=== PATIENT | male | born 1955 | race Caucasian/White ===

== ENCOUNTER 2017-01-26 09:38 | Emergency (ER) | payer OTHER ==
[~2017-01-26] VITALS: Ht 188 cm; Wt 99.8 kg
[2017-01-26 09:39] VITALS: TEMP 36.4; Ht 188 cm; Wt 99.8 kg
[2017-01-26] MEDS ORDERED: ADENOSINE IV SOLN 3 MG/ML 2 ML VIAL ONE ×3 (10:02→10:12)
[2017-01-26] MEDS ORDERED: FENTANYL CITRATE INJ 50 MCG/1 ML 2 ML VIAL ONE (10:26)
[2017-01-26] MEDS ORDERED: ETOMIDATE 2 MG/ML 20 ML VIAL IV ONE (10:26)
--- NOTE | 2017-01-26 11:01 | EMERGENCY ROOM VISIT NOTE ---
History Report prepared by Magui: Tammi Harp Under the Supervision of: Dr. Kishan Carmona M.D. 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 The patient states that his symptoms began last night after eating dinner. He started experiencing a "thumping" in his chest. He had difficulty sleeping due to his symptoms. Around 2am he became very nauseated and diaphoretic. He vomited a large amount and then started to feel better. He states that he was able to sleep for about 20 minutes afterwards. The patient's other symptoms have resolved and he is currently just experiencing tachycardia and palpitations. He rates his current pain as a 3/10 in severity. The patient is from [place] and is in [place] to visit his family. He states that prior to coming here he had been under a lot of stress with his job. He was visiting his family to relax. He has been feeling well, but reports that over the past couple of days he has been having vertigo and increased dizziness with changing positions. The patient denies fevers, chills, shortness of breath, diarrhea, constipation, and urinary symptoms. He has been eating and drinking normally. The patient has a history of tachycardia three years ago. He states that his doctors tried to convert him to a NSR with medications, but were unsuccessful and the patient was cardioverted. He states that he has had no problems with tachycardia since that time. His current symptoms feel similar to his previous episode of tachycardia. The patient had an NM in 1998 and a stent placed at that time. He states that his vice president of manufacturing has talked to him about getting a pacemaker placed and that is his next step. The patient is not current on any blood thinners or Lasix. Source of History: patient Onset: 7pm last night Position: chest Symptom Intensity: 3/10 Quality: other ("thumping") Timing: constant Associated Symptoms: + diaphoresis, + nausea, + vomiting, No fevers, No chills, No SOB, No diarrhea, No urinary symptoms Note: Pt has been experiencing vertigo and dizziness over the past couple of days. Review of Systems See HPI for pertinent positives and negatives. A total of ten systems were reviewed and were otherwise negative. Past Medical & Surgical Medical Problems: (1) Hx of myocardial infarction Surgical Problems: (1) History of heart artery stent Family History Diabetes mellitus FH: cancer FH: heart disease Hypertension Social History Smoking Status: Current Every Day Smoker Alcohol Use: none Occupation Status: employed Current/Historical Medications Scheduled Aspirin (Aspirin Ec), 81 MG PO DAILY Atorvastatin (Lipitor), 40 MG PO DAILY Carvedilol (Coreg), 6.25 MG PO BID Enalapril Maleate (Vasotec), 2.5 MG PO QPM Allergies Coded Allergies: No Known Allergies (Unverified , 01/26/17) Physical Exam Vital Signs Date Time Temp Pulse Resp B/P (MAP) Pulse Ox O2 Delivery O2 Flow Rate FiO2 01/26/17 14:05 72 16 99/68 Room Air 01/26/17 13:50 69 01/26/17 13:19 76 18 102/73 98 Room Air 01/26/17 12:44 75 16 100/74 97 Room Air 01/26/17 11:56 96/71 96 Room Air 01/26/17 11:53 79 0 95 01/26/17 11:51 88/67 01/26/17 11:48 74 0 96 01/26/17 11:46 87/63 01/26/17 11:43 74 0 94 01/26/17 11:41 93/70 01/26/17 11:38 80 0 96 01/26/17 11:36 98/72 01/26/17 11:33 77 0 95 01/26/17 11:31 94/68 01/26/17 11:28 76 0 95 01/26/17 11:26 100/75 01/26/17 11:23 73 0 95 01/26/17 11:21 93/66 01/26/17 11:18 76 0 97 01/26/17 11:16 102/72 01/26/17 11:13 81 18 97/72 98 Room Air 01/26/17 11:13 81 0 99 01/26/17 11:07 77 18 98 Nasal Cannula 2.0 01/26/17 11:06 97/73 01/26/17 11:02 76 16 96 Nasal Cannula 2.0 01/26/17 11:01 101/75 01/26/17 10:57 80 16 01/26/17 10:56 102/79 01/26/17 10:52 73 18 98 Nasal Cannula 2.0 01/26/17 10:51 114/80 01/26/17 10:49 68 01/26/17 10:47 70 14 108/83 94 Nasal Cannula 2.0 01/26/17 10:46 93/69 01/26/17 10:42 165 14 99 Nasal Cannula 2.0 01/26/17 10:41 92/76 01/26/17 10:37 166 13 100 Nasal Cannula 2.0 01/26/17 10:36 90/75 01/26/17 10:32 18 01/26/17 10:32 169 19 97 Nasal Cannula 2.0 01/26/17 10:00 167 14 85/70 98 Room Air 01/26/17 09:49 169 01/26/17 09:46 97 Room Air 01/26/17 09:39 36.4 140 18 97 Room Air Physical Exam GENERAL: Awake, alert, fatigued-appearing, in no distress HENT: Normocephalic, atraumatic. Mucous membranes are dry. EYES: Normal conjunctiva. Sclera non-icteric. NECK: Supple. FROM. No JVD. RESPIRATORY: Clear to auscultation. CARDIAC: Tachycardic, normal rhythm. Extremities warm and well perfused. Pulses equal. ABDOMEN: Soft, non-distended. No tenderness to palpation. No rebound or guarding. No masses. RECTAL: Deferred. MUSCULOSKELETAL: Chest examination reveals no tenderness. The back is symmetrical on inspection without obvious abnormality. There is no CVA tenderness to palpation. No joint edema. LOWER EXTREMITIES: Calves are equal size bilaterally and non-tender. No edema. No discoloration. NEURO: Normal sensorium. No sensory or motor deficits noted. SKIN: No rash or jaundice noted. Medical Decision & Procedures ER Provider Diagnostic Interpretation: I performed a bedside ultrasound of the heart which revealed a tachycardic rhythm, LV and RV function grossly intact, no gross wall motion abnormalities, no pericardial effusion. A repeat ECG reveals a normal sinus rhythm at 70, normal intervals, no ischemia. Laboratory Results 01/26/17 09:51 Red Blood Count 5.14, Mean Corpuscular Volume 92.0, Mean Corpuscular Hemoglobin 31.9, Mean Corpuscular Hemoglobin Concent 34.7, Mean Platelet Volume 10.5, Neutrophils (%) (Auto) 64.0, Lymphocytes (%) (Auto) 26.1, Monocytes (%) (Auto) 8.4, Eosinophils (%) (Auto) 0.6, Basophils (%) (Auto) 0.5, Neutrophils # (Auto) 10.85, Lymphocytes # (Auto) 4.43, Monocytes # (Auto) 1.42, Eosinophils # (Auto) 0.11, Basophils # (Auto) 0.08 01/26/17 09:51 Test 01/26/17 09:51 White Blood Count 16.96 K/uL (4.8-10.8) Red Blood Count 5.14 M/uL (4.7-6.1) Hemoglobin 16.4 g/dL (14.0-18.0) Hematocrit 47.3 % (42-52) Mean Corpuscular Volume 92.0 fL (80-100) Mean Corpuscular Hemoglobin 31.9 pg (25-34) Mean Corpuscular Hemoglobin Concent 34.7 g/dl (32-36) Platelet Count 279 K/uL (130-400) Mean Platelet Volume 10.5 fL (7.4-10.4) Neutrophils (%) (Auto) 64.0 % Lymphocytes (%) (Auto) 26.1 % Monocytes (%) (Auto) 8.4 % Eosinophils (%) (Auto) 0.6 % Basophils (%) (Auto) 0.5 % Neutrophils # (Auto) 10.85 K/uL (1.4-6.5) Lymphocytes # (Auto) 4.43 K/uL (1.2-3.4) Monocytes # (Auto) 1.42 K/uL (0.11-0.59) Eosinophils # (Auto) 0.11 K/uL (0-0.5) Basophils # (Auto) 0.08 K/uL (0-0.2) RDW Standard Deviation 44.9 fL (36.4-46.3) RDW Coefficient of Variation 13.3 % (11.5-14.5) Immature Granulocyte % (Auto) 0.4 % Immature Granulocyte # (Auto) 0.07 K/uL (0.00-0.02) Anion Gap 7.0 mmol/L (3-11) Est Creatinine Clear Calc Drug Dose 65.3 ml/min Estimated GFR () 57.4 Estimated GFR (Non- 49.5 BUN/Creatinine Ratio 11.8 (10-20) Calcium Level 9.3 mg/dl (8.5-10.1) Magnesium Level 2.1 mg/dl (1.8-2.4) Thyroid Stimulating Hormone (TSH) 1.650 uIu/ml (0.300-4.500) Laboratory results reviewed by me Medications Administered Medications (Trade) Dose Ordered Sig/[place] Route Start Time Stop Time Status Last Admin Dose Admin Adenosine (Adenosine IV) 9 mg STK-MED ONCE .ROUTE 01/26/17 10:02 01/26/17 10:03 DC 01/26/17 10:02 9 MG Adenosine (Adenosine IV) 3 mg STK-MED ONCE .ROUTE 01/26/17 10:11 01/26/17 10:12 DC 01/26/17 10:11 9 MG Adenosine (Adenosine IV) 3 mg STK-MED ONCE .ROUTE 01/26/17 10:12 01/26/17 10:13 DC 01/26/17 10:12 3 MG Etomidate (Amidate Inj) 40 mg STK-MED ONCE IV 01/26/17 10:26 01/26/17 10:27 DC 01/26/17 10:26 40 MG Fentanyl Citrate (Fentanyl Inj) 100 mcg STK-MED ONCE .ROUTE 01/26/17 10:26 01/26/17 10:27 DC 01/26/17 10:26 50 MCG Procedure Indication: wide complex tachycardia unresponsive to medications and hypotensive Written consent was obtained after the risks and benefits were explained, including but not limited to pain, thermal burn, allergic reaction, aspiration, airway obstruction, laryngospasm, infection, hypotension, and cardiorespiratory arrest. At this time, the risks of the procedure are less than the risks of NOT performing the procedure. A time out was taken and the correct patient and procedure identified. The patient was on 100% via NRB and end tidal CO2 monitoring prior to the procedure. Suction, airway equipment, medications, respiratory equipment, ACLS cart, and appropriate personnel were prepared prior to the initiation of the procedure. Sedation was achieved utilizing 10 mg of Etomidate and 50 mcg of Fentanyl. The biphasic defibrillator was set to 200 joules of energy and synched. After confirmation of sedation and "all clear" safety check the synchronized shock was delivered. This resulted in successful conversion of the dysrhythmia back into sinus rhythm. See nursing notes for dosages and times. There were no complications and the patient recovered uneventfully from the procedure. ECG Indication: tachycardia Rate (beats per minute): 169 Rhythm: other (wide tachycardia) Findings: no acute ischemic change, other (Non-specific intraventricular block , limited by the rate) Comparison ECG Date: no prior available ED Course 0940: The patient was evaluated in room A4B. A complete history and physical exam was performed. I also performed a bedside ultrasound of the heart which revealed a tachycardic rhythm, LV and RV function grossly intact, no wall motion abnormalities, no pericardial effusion. 1002: Adenosine 6 mg IV 1011: Adenosine 12 mg IV 1012: Adenosine 12 mg IV 1024: The patient's HR is still in the 160s after receiving Adenosine. At this time I discussed the risks and benefits associated with cardioversion with the patient. I answered all of his questions and he is in agreement with the treatment plan. 1025: We prepared to perform a cardioversion with sedation. Please see Dr. Hernández's sedation note and my procedure note as stated above for further details. 1026: Fentanyl 50 mcg, Etomidate 10 mg IV 1044: At this time the patient was shocked. 1051: The patient is waking up and talking. 1232: I updated the patient and he is doing well. I discussed follow-up plans. The patient will be returning home to [place] on February 06 and he will arrange for follow-up with his PCP on February 07. 1333: I reassessed the patient at this time. He is feeling better and resting comfortably. He is still in a normal sinus rhythm. I discussed the results and treatment plan with the patient. I answered all pertaining questions that he had. He expressed understanding and verbalized agreement. The patient will be discharged home. Medical Decision I reviewed the patient's past medical history, medications, and the nursing notes as described above. Differential diagnoses includes SVT vs. a-fib with RVR, vtach, sinus tachycardia , dehydration, electrolyte abnormality, ACS. Patient presents to the ED with palpitations, n/v, sweating with similar episode 3 years ago requiring cardioversion per hpi. On arrival appears fatigued , mildly uncomfortable but otherwise in NAD. Reports palpitations are improved from earlier. Arrived tachycardic to 140-160s with SBP 90s, mentating well without dizziness. Denies chest pain rather feels intermittant palpitations. Clinically dry. IVF given. QRS complex on EKG mildly widened, not c/w vtach. Bedside echo with grossly intact RV/LV function. Adenosine attempted 6, 12, and 12 and was unsuccessfully. Considering clear onset of sx last night and hypotension cardioversion indicated. Patient consented and agreeable for the procedure. Cardioversion performed under sedation with etomidate and fentanyl and was successful, subsequently in NSR. Repeat EKG without acute ischemia. Inferior q waves present on prior EKG obtained from [facility] where patient gets his care. Patient observed in ED and continued to be asymptomatic. Considering lack of cp in the setting of undifferentiated wide complex tachycardia, troponin deferred. Moreover, considering complete resolution of sx after cardioversion, acs unlikely however cannot completely r/ o. This was discussed with patient and observation was offered however patient preferred discharge and will f/u with his vice president of manufacturing within the next week. Medication Reconcilliation Current Medication List: was personally reviewed by me Blood Pressure Screening Patient's blood pressure: Low blood pressure Impression Primary Impression: Wide-complex tachycardia Critical Care I have personally spent greater than 75 minutes of critical care time in the direct management of this patient. This includes bedside care, interpretation of diagnostic studies, and testing, discussion with consultants, patient, and family members, and other required patient management activities. This 75 minutes is in excess of all separately billable procedures. Scribe Attestation The scribe's documentation has been prepared under my direction and personally reviewed by me in its entirety. I confirm that the note above accurately reflects all work, treatment, procedures, and medical decision making performed by me. Departure Information Dispostion Home / Self-Care Referrals No Doctor, Assigned (PCP) Forms HOME CARE DOCUMENTATION FORM, IMPORTANT VISIT INFORMATION, WORK / SCHOOL INSTRUCTIONS Patient Instructions Cardioversion Electrical About, My [facility], Tachycardia Additional Instructions Please follow up with your vice president of manufacturing next week. You were successfully cardioverted for your fast heart rhythm after medications were unsuccessful. Return to the emergency department for worsening symptoms as described in the accompanying instructions.
[2017-01-26 11:20] LABS: BASO % 0.5 %; BASO ABS # 0.08 K/uL (0-0.2); COMPLETE YES; EOS % 0.6 %; HEMATOCRIT 47.3 % (42-52); IG% 0.4 %; LYMPH % 26.1 %; LYMPH ABS # 4.43 K/uL (1.2-3.4); MEAN CORPUSCULAR HEMOGLOBIN 31.9 pg (25-34); MEAN CORPUSCULAR HGB CONC 34.7 g/dl (32-36); MEAN PLATELET VOLUME 10.5 fL (7.4-10.4); MONO % 8.4 %; PLATELET COUNT 279 K/uL (130-400); RED BLOOD COUNT 5.14 M/uL (4.7-6.1); WHITE BLOOD COUNT 16.96 K/uL (4.8-10.8)
[2017-01-26 11:26] LABS: BUN/CREATININE RATIO 11.8 (10-20); CALCIUM 9.3 mg/dl (8.5-10.1); CREATININE 1.5 mg/dl (0.60-1.40); MAGNESIUM 2.1 mg/dl (1.8-2.4); POTASSIUM 4.5 mmol/L (3.5-5.1)
[2017-01-26] MEDS ORDERED: ASPI81TA28 PO (11:36)
[2017-01-26] MEDS ORDERED: CARV6.252 PO (11:36)
[2017-01-26] MEDS ORDERED: ATOR-24 PO (11:36)
[2017-01-26] MEDS ORDERED: ENAL1TAB29 PO (11:36)
[2017-01-26 11:37] LABS: THYROID STIMULATING HORMONE 1.65 uIu/ml (0.300-4.500)
[2017-01-26 13:19] VITALS: O2SAT 98
[2017-01-26 14:05] VITALS: BP 99/68; PULSE 72
--- NOTE | 2017-01-26 15:52 | EMERGENCY ROOM VISIT NOTE ---
Post-Moderate Sedation Plan General Date of Moderate Sedation Jan 26, 2017. Vital Signs: Vital Signs Past 12 Hours Date Time Temp Pulse Resp B/P (MAP) Pulse Ox O2 Delivery O2 Flow Rate FiO2 01/26/17 14:05 72 16 99/68 Room Air 01/26/17 13:50 69 01/26/17 13:19 76 18 102/73 98 Room Air 01/26/17 12:44 75 16 100/74 97 Room Air 01/26/17 11:56 96/71 96 Room Air 01/26/17 11:53 79 0 95 01/26/17 11:51 88/67 01/26/17 11:48 74 0 96 01/26/17 11:46 87/63 01/26/17 11:43 74 0 94 01/26/17 11:41 93/70 01/26/17 11:38 80 0 96 01/26/17 11:36 98/72 01/26/17 11:33 77 0 95 01/26/17 11:31 94/68 01/26/17 11:28 76 0 95 01/26/17 11:26 100/75 01/26/17 11:23 73 0 95 01/26/17 11:21 93/66 01/26/17 11:18 76 0 97 01/26/17 11:16 102/72 01/26/17 11:13 81 18 97/72 98 Room Air 01/26/17 11:13 81 0 99 01/26/17 11:07 77 18 98 Nasal Cannula 2.0 01/26/17 11:06 97/73 01/26/17 11:02 76 16 96 Nasal Cannula 2.0 01/26/17 11:01 101/75 01/26/17 10:57 80 16 01/26/17 10:56 102/79 01/26/17 10:52 73 18 98 Nasal Cannula 2.0 01/26/17 10:51 114/80 01/26/17 10:49 68 01/26/17 10:47 70 14 108/83 94 Nasal Cannula 2.0 01/26/17 10:46 93/69 01/26/17 10:42 165 14 99 Nasal Cannula 2.0 01/26/17 10:41 92/76 01/26/17 10:37 166 13 100 Nasal Cannula 2.0 01/26/17 10:36 90/75 01/26/17 10:32 18 01/26/17 10:32 169 19 97 Nasal Cannula 2.0 01/26/17 10:00 167 14 85/70 98 Room Air 01/26/17 09:49 169 01/26/17 09:46 97 Room Air 01/26/17 09:39 36.4 140 18 97 Room Air Review - Discharge Plan Post Moderate Sedation Plan: On clinical assessment, the patient appears to have tolerated the conscious sedation without complications. Patient is recovering as anticipated. Patient will continue to be monitored by nursing and may be discharged when conscious sedation discharge criteria are met.
--- NOTE | 2017-01-26 15:52 | EMERGENCY ROOM VISIT NOTE ---
Pre-Mod Sedation Assessment General Date of Moderate Sedation: Jan 26, 2017. Vital Signs: Vital Signs Past 12 Hours Date Time Temp Pulse Resp B/P (MAP) Pulse Ox O2 Delivery O2 Flow Rate FiO2 01/26/17 14:05 72 16 99/68 Room Air 01/26/17 13:50 69 01/26/17 13:19 76 18 102/73 98 Room Air 01/26/17 12:44 75 16 100/74 97 Room Air 01/26/17 11:56 96/71 96 Room Air 01/26/17 11:53 79 0 95 01/26/17 11:51 88/67 01/26/17 11:48 74 0 96 01/26/17 11:46 87/63 01/26/17 11:43 74 0 94 01/26/17 11:41 93/70 01/26/17 11:38 80 0 96 01/26/17 11:36 98/72 01/26/17 11:33 77 0 95 01/26/17 11:31 94/68 01/26/17 11:28 76 0 95 01/26/17 11:26 100/75 01/26/17 11:23 73 0 95 01/26/17 11:21 93/66 01/26/17 11:18 76 0 97 01/26/17 11:16 102/72 01/26/17 11:13 81 18 97/72 98 Room Air 01/26/17 11:13 81 0 99 01/26/17 11:07 77 18 98 Nasal Cannula 2.0 01/26/17 11:06 97/73 01/26/17 11:02 76 16 96 Nasal Cannula 2.0 01/26/17 11:01 101/75 01/26/17 10:57 80 16 01/26/17 10:56 102/79 01/26/17 10:52 73 18 98 Nasal Cannula 2.0 01/26/17 10:51 114/80 01/26/17 10:49 68 01/26/17 10:47 70 14 108/83 94 Nasal Cannula 2.0 01/26/17 10:46 93/69 01/26/17 10:42 165 14 99 Nasal Cannula 2.0 01/26/17 10:41 92/76 01/26/17 10:37 166 13 100 Nasal Cannula 2.0 01/26/17 10:36 90/75 01/26/17 10:32 18 01/26/17 10:32 169 19 97 Nasal Cannula 2.0 01/26/17 10:00 167 14 85/70 98 Room Air 01/26/17 09:49 169 01/26/17 09:46 97 Room Air 01/26/17 09:39 36.4 140 18 97 Room Air Review Cardiovascular: no edema, no murmur, normal peripheral pulses, + tachycardia Abdomen: normal bowel sounds, non tender, soft Lungs: chest non-tender, lungs clear, normal breath sounds Airway Class: III Pre-Sedation Airway Assessment Oral Cavity: Dentures Able to Visualize Vocal Cords: No Short Thick Neck: No Hx of Sleep Apnea: Yes Smoking Status: Current Every Day Smoker Mallampati Classification: Class III ASA Classification: Class III Procedure Planning Contraindications-for Mod Sed: None Yes Notes The planned sedation has been discussed with the patient and consent obtained. I have identified the patient, determined the appropriateness of sedation and have assessed the patient immediately prior to the procedure. All medicine(s) and interventions are by my order.
--- NOTE | 2017-01-26 15:55 | EMERGENCY ROOM VISIT NOTE ---
ED Visit Note First contact with patient: 10:30 Procedural Sedation Indication: Electrocardioversion. Last Ate: last evening > 12 hours ago Previous issues with sedation: none Snore: yes Emergent: Yes ASA: 3 Dentures: yes Time Out: 10:42am Time Recovered: 10:50am Total time: 20 minutes including pre-post sedation counselling. Written consent was obtained after the risks and benefits were explained to the patient, including, but not limited to aspiration, allergic reaction, breathing difficulties, cardiac complications, vomiting, pain, event recall, bleeding, and /or infection. Pre-sedation examination and paperwork completed. The patient was on 100% oxygen via NRB prior to the procedure. Continuos end tidal CO2 monitoring, pulse oximetry, and cardiac monitoring were utilized. Suction, airway equipment, medications, respiratory equipment, and appropriate personnel were prepared prior to the initiation of the procedure. A time out was taken. Sedation was achieved utilizing 10 mg of Etomidate. After I observed the patient had reached the appropriate level of sedation the main procedure was performed without complication. Sedation was discontinued and the monitoring continued. The patient recovered quickly from the effects of the medication without complication or adverse event.
== END 2017-01-26 14:14 | disposition home or self-care (01) ==
LOC: C.EDB 09:40 → C.EDA 14:14
DX: R00.0 Tachycardia, unspecified (principal); I95.9 Hypotension, unspecified; R11.2 Nausea with vomiting, unspecified; R61 Generalized hyperhidrosis; R42 Dizziness and giddiness; I25.2 Old myocardial infarction; Z79.82 Long term (current) use of aspirin; Z79.899 Other long term (current) drug therapy; Z98.61 Coronary angioplasty status; Z82.49 Family history of ischemic heart disease and other diseases of the circulatory system; Z83.3 Family history of diabetes mellitus; F17.200 Nicotine dependence, unspecified, uncomplicated

== ENCOUNTER 2021-10-12 08:24 | Inpatient (IN) ==
--- NOTE | 2021-10-12 08:36 | Emergency Department Note ---
Impression & Plan Ventricular tachycardia, CATARINO (acute kidney injury), Elevated troponin, Lactic acidosis, Hx of supraventricular tachycardia ED Provider Note NAME: CHI LANDAVERDE AGE: 66 SEX: M : 1955 ARRIVES VIA: Walk-In INFORMANT: Patient, ED PROVIDER(S): Jitendra Barajas MD Chief Complaint: Tachycardia HPI: Patient presents due to concern for tachycardia. Patient states that he had finished supper last evening got up to walk the dogs and all of a sudden felt his heart to be racing. The patient states that he has been in this this whole time and he had no improvement in symptoms. Patient did not attempt anything at home or take any medications to help with symptoms. Patient did not take his morning medications. Patient has not had any fevers chills or chest pains but does feel lightheaded and dizzy. Patient denies any alcohol or tobacco use. Patient denies any drug use. Patient does have a prior history of PA but states that this does not feel similar. The patient denies any leg swelling. Patient denies any vomiting or diarrhea. Patient denies any abdominal pain. Patient denies any congestion or sore throat. The patient denies any rash or dysuria. ROS: See HPI for pertinent positives and negatives. A total of 10 systems were reviewed and otherwise negative. Past medical history: See below Surgical history: See below Social history: See below Physical Exam: GENERAL: Pale in appearance, wearing glasses. EYE EXAM: Normal conjunctiva. PERRL, no anisocoria and EOM's grossly intact w/o pain. OROPHARYNX: Dry mucus membranes. Grossly normal dentition. NECK: Supple, no nuchal rigidity, no adenopathy, non-tender. No signs of meningismus. LUNGS: Scant wheezes bilaterally. Normal chest wall mechanics. HEART: Tachycardic and regular, no MRG. ABDOMEN: Abdomen soft, non-tender, normo-active bowel sounds, no masses, no rebound or guarding. BACK: No CVA TTP. SKIN: No rashes and no bruising. UPPER EXTREMITIES: Upper extremities are grossly normal. LOWER EXTREMITIES: Grossly normal, no edema. NEURO EXAM: A&O x3, cranial nerves II-XII grossly intact, normal speech, moves all 4 extremities on command w/o issue. Differential diagnoses: Premature contractions, electrolyte abnormality, cardiac dysrhythmia, thyroid dysfunction, pulmonary embolism, infection, gastrointestinal, as well as other pathologies. Course: Patient was seen and evaluated the bedside. Full history physical exam was performed. EKG interpreted by Wide-complex QRS tachycardia, rate of 190, wide QRS, normal axis. Repeat EKG completed at 858 Wide QRS tachycardia rate of 163, normal axis, the rate is slightly improved compared to prior. Imaging Studies: See Below Cardiac monitoring: An order was placed for continuous cardiac monitoring. The monitor shows a rate of 192 with tachycardic and regular rhythm. Procedures: Cardioversion completed by Dr. Barajas Indication: Ventricular tachycardia with hypotension Verbal consent was obtained from the patient given the emergent nature of the patient's condition. At this time, the risks of the procedure are less than the risks of NOT performing the procedure. A time out was taken and the correct patient and procedure identified. The patient was on 100% via supplemental oxygen. Suction, airway equipment, medications, respiratory equipment, ACLS cart, and appropriate personnel were prepared prior to the initiation of the procedure. Patient did receive 75 mcg of fentanyl. The biphasic defibrillator was set to 100 joules of energy and synched. After confirmation of sedation and "all clear" safety check the synchronized shock was delivered. This resulted in unsuccessful conversion of the dysrhythmia back into sinus rhythm. Cardiology was subsequently consulted. MDM: Patient presented due to concern for tachycardia. The patient's initial EKG did show a wide-complex but was monomorphic and regular. The patient did have pads placed IV fluids were hung and the patient did have blood work completed. No prior EKGs for comparison. Patient does receive care at [facility] cardiology and and I did ask case management to try and obtain 1 in the interim. The patient was given 6 mg of adenosine given the patient's monomorphic and regular wide-complex tachycardia without effect. Patient also did have 12 mg also administered. Patient did not have any change. The patient did not have any change in mentation. The patient was noted to be hypotensive so the decision was made to cardiovert the patient. Patient was given 75 mcg of fentanyl. Fluids were continuing to run and the patient did receive a shock of 100 J. The patient did have a slight change in his rate from the 190s to the 160s. Patient did have a white count greater than 30 so the patient was ordered blood work which included blood cultures and a lactate. I did consider the possibility of sepsis but the patient headache chronic cough but otherwise did not complain of any abdominal pain upper respiratory symptoms other than the cough and no rash. The patient denied any urinary symptoms. I did consult cardiology and Dr. Loving with [facility] cardiology did present to the bedside. The patient was ordered additional IV fluids. The patient a total of his time would receive 30 cc/kg bolus. He was agreeable to starting a an IV bolus of amiodarone in addition to amiodarone drip. Patient did see compliance representative Dr. Domínguez back in May. Patient reportedly had been referred there due to concern for paroxysmal SVT. The patient's wide QRS is a change from comparison EKG completed in the outpatient setting back in May 2021. Patient with a lactate of 5. Patient creatinine greater than 2. Troponin is detectable. The patient denies any chest pains and believe this is likely demand related given the patient's tachycardia that has likely been ongoing for greater than 12 hours. Chest x-ray was read as possible pneumonitis versus atelectasis. The patient had already been ordered vancomycin and cefepime given the patient's white count and tachycardia. Patient received these medications. The patient did have some intermittent hypotension but the patient had no change in mental status. I did present at the bedside several times to reevaluate the patient. Dr. Loving decided to attempt to cardiovert the patient 2 more times but without success as the patient remained in a ventricular tachycardia with a rate greater than 160. I did speak with the on-call hospitalist Berenice Conner PA-C and the patient was admitted by Dr. Zhou. Given the patient's persistent tachycardia with intermittent hypotension the decision was made to have the patient admitted to the intensive care unit. Throughout the patient's ED visit the patient was always awake alert following commands and had no changes in mentation. Critical Care: I have personally spent 97 minutes of critical care time in direct management of this patient. This includes bedside care, interpretation of diagnostic studies, and testing, discussion with consultants, patient, and family members, and other require inpatient management activities. This 97 minutes is in excess of all separately billable procedures. Past Med/Surg History Medical History CAD (coronary artery disease) Chronic HFrEF (heart failure with reduced ejection fraction) COPD (chronic obstructive pulmonary disease) HLD (hyperlipidemia) Hx of myocardial infarction Hx of supraventricular tachycardia Hypertension Ischemic cardiomyopathy PAD (peripheral artery disease) Surgical History History of angioplasty of peripheral vessel PCI x 3 to Right Iliac 03/29/2014 History of heart artery stent 1999 BMS to RCA Family History Mother Stroke Social History Smoking Status: Former smoker Smoking End Date: 05/2012; Hx Alcohol Use: Yes (no ETOH in 25yrs) Hx Substance Use: No Preferred Language: Slovak marital status: Current Living Situation: Significant Other Current Living Situation Comment: Lives with and mother who is 93, he is caregiver Feels Safe at Home: Yes Assistive Devices Comment: unknown Allergies Allergies Allergy/AdvReac Type Severity Reaction Status Date / Time No Known Allergies Allergy Unverified 10/12/21 09:13 Home Meds Home Medications Medication Instructions Recorded Confirmed aspirin 81 mg tablet,delayed 81 mg PO DAILY #0 01/26/17 10/12/21 release (Aspirin Low Dose) atorvastatin 80 mg tablet 80 mg PO DAILY #0 tab 01/26/17 10/12/21 carvedilol 6.25 mg tablet 6.25 mg PO BID #0 tab 01/26/17 10/12/21 enalapril maleate 2.5 mg tablet 2.5 mg PO HS #0 tab 01/26/17 10/12/21 ezetimibe 10 mg tablet 10 mg PO DAILY 10/12/21 10/12/21 nitroglycerin 0.4 mg sublingual 0.4 mg SUBLINGUAL DIRECTED PRN 10/12/21 10/12/21 tablet Results & Data (ED) Vital Signs Vital Signs - 24 hr 10/12/21 08:30 10/12/21 08:40 10/12/21 08:42 Temperature 36.4 C L Temperature Source Temporal Artery Scan Pulse Rate 193 H 189 H Pulse Rate from SpO2 Sensor Respiratory Rate 20 27 H 28 H Respiratory Effort / Characteristics Non-Labored Respiratory Depth Normal Blood Pressure 81/67 L Blood Pressure Mean 71 Pulse Oximetry Oxygen Delivery Method Room Air Sepsis New/Unexplained Change in Mental Status N/A Sepsis Action Taken by Nursing No Action Required 10/12/21 08:50 10/12/21 08:54 10/12/21 08:59 Temperature Temperature Source Pulse Rate 189 H 190 H 164 H Pulse Rate from SpO2 Sensor Respiratory Rate 24 23 20 Respiratory Effort / Characteristics Respiratory Depth Blood Pressure 62/43 L Blood Pressure Mean 49 94 Pulse Oximetry Oxygen Delivery Method Sepsis New/Unexplained Change in Mental Status Sepsis Action Taken by Nursing 10/12/21 09:00 10/12/21 09:10 10/12/21 09:20 Temperature Temperature Source Pulse Rate 165 H 170 H 171 H Pulse Rate from SpO2 Sensor Respiratory Rate 18 17 19 Respiratory Effort / Characteristics Respiratory Depth Blood Pressure 97/82 L Blood Pressure Mean 87 Pulse Oximetry Oxygen Delivery Method Sepsis New/Unexplained Change in Mental Status Sepsis Action Taken by Nursing 10/12/21 09:25 10/12/21 09:27 10/12/21 09:30 Temperature Temperature Source Pulse Rate 169 H 167 H 164 H Pulse Rate from SpO2 Sensor Respiratory Rate 20 24 20 Respiratory Effort / Characteristics Respiratory Depth Blood Pressure 99/71 L 89/76 L Blood Pressure Mean 80 80 Pulse Oximetry Oxygen Delivery Method Sepsis New/Unexplained Change in Mental Status Sepsis Action Taken by Nursing 10/12/21 09:32 10/12/21 09:36 10/12/21 09:38 Temperature Temperature Source Pulse Rate 163 H 163 H 164 H Pulse Rate from SpO2 Sensor 168 H 167 H Respiratory Rate 20 20 17 Respiratory Effort / Characteristics Respiratory Depth Blood Pressure 82/66 L 76/55 L Blood Pressure Mean 50 71 62 Pulse Oximetry 99 96 Oxygen Delivery Method Sepsis New/Unexplained Change in Mental Status Sepsis Action Taken by Nursing 10/12/21 09:40 10/12/21 09:41 10/12/21 09:44 Temperature Temperature Source Pulse Rate 164 H 163 H 163 H Pulse Rate from SpO2 Sensor 163 H 166 H 162 H Respiratory Rate 20 22 22 Respiratory Effort / Characteristics Respiratory Depth Blood Pressure 44/24 L Blood Pressure Mean 30 22 Pulse Oximetry 100 100 100 Oxygen Delivery Method Sepsis New/Unexplained Change in Mental Status Sepsis Action Taken by Nursing 10/12/21 09:47 10/12/21 09:48 10/12/21 09:50 Temperature Temperature Source Pulse Rate 164 H 164 H 164 H Pulse Rate from SpO2 Sensor 164 H 163 H 161 H Respiratory Rate 23 25 H 25 H Respiratory Effort / Characteristics Respiratory Depth Blood Pressure 77/61 L 70/59 L 89/62 L Blood Pressure Mean 66 62 71 Pulse Oximetry 100 100 100 Oxygen Delivery Method Sepsis New/Unexplained Change in Mental Status Sepsis Action Taken by Nursing 10/12/21 09:53 10/12/21 09:55 Temperature Temperature Source Pulse Rate 163 H 163 H Pulse Rate from SpO2 Sensor 147 H 78 Respiratory Rate 30 H Respiratory Effort / Characteristics Respiratory Depth Blood Pressure 81/69 L Blood Pressure Mean 73 74 Pulse Oximetry 100 98 Oxygen Delivery Method Sepsis New/Unexplained Change in Mental Status Sepsis Action Taken by Prison Medications Current Medication List: was personally reviewed by me Laboratory Data Attestation: I reviewed the patient's lab results. Result diagrams: 10/12/21 08:42 10/12/21 08:42 Lab Results 10/12/21 10/12/21 10/12/21 Range/Units 08:15 08:42 08:42 WBC 32.68 H* (4.8-10.8) K/uL RBC 5.04 (4.7-6.1) M/uL Hgb 16.5 (14.0-18.0) g/dL Hct 47.6 (42-52) % MCV 94.4 (80-100) fL MCH 32.7 (25-34) pg MCHC 34.7 (32-36) g/dL RDW Std Deviation 45.0 (36.4-46.3) fL RDW Coeff of Sapna 13.1 (11.5-14.5) % Plt Count 277 (130-400) K/uL MPV 10.8 H (7.4-10.4) fL Immature Gran % (Auto) 0.4 % Neut % (Auto) 77.9 % Lymph % (Auto) 10.7 % Mineral % (Auto) 10.7 % Eos % (Auto) 0.1 % Baso % (Auto) 0.2 % Neut # (Auto) 25.48 H (1.4-6.5) K/uL Lymph # (Auto) 3.50 H (1.2-3.4) K/uL Mineral # (Auto) 3.51 H (0.11-0.59) K/uL Eos # (Auto) 0.02 (0-0.5) K/uL Baso # (Auto) 0.05 (0-0.2) K/uL Immature Gran # (Auto) 0.12 H (0.00-0.02) K/uL Sodium 144 (136-145) mmol/L Potassium 4.6 (3.5-5.1) mmol/L Chloride 104 (98-107) mmol/L Carbon Dioxide 24 (21-32) mmol/L Anion Gap 16 H (3-11) BUN 24 H (6-23) mg/dl Creatinine 2.60 H (0.6-1.4) mg/dl Est Cr Clr Drug Dosing 32.5 ml/min Est GFR ( Amer) 28.5 ml/min Est GFR (Non-Af Amer) 24.6 ml/min BUN/Creatinine Ratio 9.2 L (10-20) Glucose 217 H (70-99(Fasting)) mg/dl Lactate (0.4-2.0) mmol/L Calcium 9.7 (8.5-10.1) mg/dl Phosphorus 5.6 H (2.5-4.9) mg/dl Magnesium 2.1 (1.7-2.4) mg/dl Total Bilirubin 1.0 (0.2-1.0) mg/dl AST 84 H (13-39) U/L ALT 132 H (7-52) U/L Alkaline Phosphatase 108 H (34-104) U/L Troponin I 0.18 H* (0-0.04) ng/ml Total Protein 7.2 (6.0-8.3) gm/dl Albumin 4.4 (3.4-5.0) gm/dl Globulin 2.8 (2.5-4.0) gm/dl Albumin/Globulin Ratio 1.6 (0.9-2) Procalcitonin (0-0.5) ng/ml TSH (0.300-4.500) uIu/ml Nasal Screen MRSA (PCR) Negative (Negative) SARS-CoV-2, RNA, NAAT (NEGATIVE) 10/12/21 10/12/21 10/12/21 Range/Units 08:42 08:42 09:10 WBC (4.8-10.8) K/uL RBC (4.7-6.1) M/uL Hgb (14.0-18.0) g/dL Hct (42-52) % MCV (80-100) fL MCH (25-34) pg MCHC (32-36) g/dL RDW Std Deviation (36.4-46.3) fL RDW Coeff of Sapna (11.5-14.5) % Plt Count (130-400) K/uL MPV (7.4-10.4) fL Immature Gran % (Auto) % Neut % (Auto) % Lymph % (Auto) % Mineral % (Auto) % Eos % (Auto) % Baso % (Auto) % Neut # (Auto) (1.4-6.5) K/uL Lymph # (Auto) (1.2-3.4) K/uL Mineral # (Auto) (0.11-0.59) K/uL Eos # (Auto) (0-0.5) K/uL Baso # (Auto) (0-0.2) K/uL Immature Gran # (Auto) (0.00-0.02) K/uL Sodium (136-145) mmol/L Potassium (3.5-5.1) mmol/L Chloride (98-107) mmol/L Carbon Dioxide (21-32) mmol/L Anion Gap (3-11) BUN (6-23) mg/dl Creatinine (0.6-1.4) mg/dl Est Cr Clr Drug Dosing ml/min Est GFR ( Amer) ml/min Est GFR (Non-Af Amer) ml/min BUN/Creatinine Ratio (10-20) Glucose (70-99(Fasting)) mg/dl Lactate 5.5 H* (0.4-2.0) mmol/L Calcium (8.5-10.1) mg/dl Phosphorus (2.5-4.9) mg/dl Magnesium (1.7-2.4) mg/dl Total Bilirubin (0.2-1.0) mg/dl AST (13-39) U/L ALT (7-52) U/L Alkaline Phosphatase (34-104) U/L Troponin I (0-0.04) ng/ml Total Protein (6.0-8.3) gm/dl Albumin (3.4-5.0) gm/dl Globulin (2.5-4.0) gm/dl Albumin/Globulin Ratio (0.9-2) Procalcitonin 0.40 (0-0.5) ng/ml TSH 1.170 (0.300-4.500) uIu/ml Nasal Screen MRSA (PCR) (Negative) SARS-CoV-2, RNA, NAAT (NEGATIVE) 10/12/21 Range/Units 09:10 WBC (4.8-10.8) K/uL RBC (4.7-6.1) M/uL Hgb (14.0-18.0) g/dL Hct (42-52) % MCV (80-100) fL MCH (25-34) pg MCHC (32-36) g/dL RDW Std Deviation (36.4-46.3) fL RDW Coeff of Sapna (11.5-14.5) % Plt Count (130-400) K/uL MPV (7.4-10.4) fL Immature Gran % (Auto) % Neut % (Auto) % Lymph % (Auto) % Mineral % (Auto) % Eos % (Auto) % Baso % (Auto) % Neut # (Auto) (1.4-6.5) K/uL Lymph # (Auto) (1.2-3.4) K/uL Mineral # (Auto) (0.11-0.59) K/uL Eos # (Auto) (0-0.5) K/uL Baso # (Auto) (0-0.2) K/uL Immature Gran # (Auto) (0.00-0.02) K/uL Sodium (136-145) mmol/L Potassium (3.5-5.1) mmol/L Chloride (98-107) mmol/L Carbon Dioxide (21-32) mmol/L Anion Gap (3-11) BUN (6-23) mg/dl Creatinine (0.6-1.4) mg/dl Est Cr Clr Drug Dosing ml/min Est GFR ( Amer) ml/min Est GFR (Non-Af Amer) ml/min BUN/Creatinine Ratio (10-20) Glucose (70-99(Fasting)) mg/dl Lactate (0.4-2.0) mmol/L Calcium (8.5-10.1) mg/dl Phosphorus (2.5-4.9) mg/dl Magnesium (1.7-2.4) mg/dl Total Bilirubin (0.2-1.0) mg/dl AST (13-39) U/L ALT (7-52) U/L Alkaline Phosphatase (34-104) U/L Troponin I (0-0.04) ng/ml Total Protein (6.0-8.3) gm/dl Albumin (3.4-5.0) gm/dl Globulin (2.5-4.0) gm/dl Albumin/Globulin Ratio (0.9-2) Procalcitonin (0-0.5) ng/ml TSH (0.300-4.500) uIu/ml Nasal Screen MRSA (PCR) (Negative) SARS-CoV-2, RNA, NAAT NEGATIVE (NEGATIVE) Administered Medications Amiodarone HCl/Dextrose (Nexterone / D5w) 360 mg in 200 mls @ 33.333 mls/hr IV ONE ONE Stop: 10/12/21 15:23 Last Infusion: 10/12/21 13:23 Dose: 33.3 mls/hr Documented by: [id number] Cosigned by: [id number] Admin: 10/12/21 09:30 Dose: 33.3 mls/hr Documented by: [id number] Cosigned by: [id number] Norepinephrine Bitartrate (Levophed/D5w) 8 mg in 508 mls @ 13.411 mls/hr IV .Q24H CHINTAN; Protocol Stop: 11/11/21 11:29 Last Admin: 10/12/21 11:30 Dose: 0.1 mcg/kg/min, 33.5 mls/hr Documented by: [id number] Cosigned by: [id number] Phenylephrine HCl 20 mg/ (Dextrose) 502 mls @ 66.264 mls/hr IV .Q7H35M CHINTAN; Protocol Stop: 11/11/21 11:45 Last Admin: 10/12/21 13:22 Dose: Not Given Documented by: [id number] Epinephrine HCl () 4 mg in 254 mls @ 6.706 mls/hr IV .Q24H CHINTAN; Protocol Stop: 11/11/21 11:44 Last Admin: 10/12/21 13:20 Dose: Not Given Documented by: [id number] Fentanyl Citrate (Fentanyl Citrate) 2,500 mcg in 250 mls @ 10 mls/hr IV .Q25H CHINTAN; Protocol Stop: 10/26/21 11:44 Last Titration: 10/12/21 13:15 Dose: 100 mcg/hr, 10 mls/hr Documented by: [id number] Cosigned by: [id number] Titration: 10/12/21 13:00 Dose: 75 mcg/hr, 7.5 mls/hr Documented by: [id number] Cosigned by: [id number] Titration: 10/12/21 12:45 Dose: 50 mcg/hr, 5 mls/hr Documented by: [id number] Cosigned by: [id number] Admin: 10/12/21 12:30 Dose: 25 mcg/hr, 2.5 mls/hr Documented by: [id number] Cosigned by: [id number] Discontinued Medications Adenosine (Adenosine Iv Soln 3 Mg/Ml 2 Ml Vial) Confirm Administered Dose 12 mg IV .STK-MED ONE Stop: 10/12/21 08:41 Last Admin: 10/12/21 08:48 Dose: 12 mg Documented by: [id number] Adenosine (Adenosine Iv Soln 3 Mg/Ml 2 Ml Vial) Confirm Administered Dose 6 mg IV .STK-MED ONE Stop: 10/12/21 08:50 Last Admin: 10/12/21 08:56 Dose: 6 mg Documented by: [id number] Amiodarone HCl (Amiodarone Iv Bolus & Drip) 1 ea IV NOW STA; Protocol Stop: 10/12/21 09:15 Last Admin: 10/12/21 09:36 Dose: 1 ea Documented by: [id number] Fentanyl Citrate (Fentanyl Citrate 100 Mcg/2 Ml Vial) Confirm Administered Dose 100 mcg .ROUTE .STK-MED ONE Stop: 10/12/21 08:52 Last Admin: 10/12/21 09:05 Dose: Not Given Documented by: [id number] Fentanyl Citrate (Fentanyl Citrate 100 Mcg/2 Ml Vial) 75 mcg IV NOW STA Stop: 10/12/21 08:56 Last Admin: 10/12/21 09:03 Dose: 75 mcg Documented by: [id number] Sodium Chloride (Nss) 500 mls @ 999 mls/hr IV .Q31M STA Stop: 10/12/21 09:11 Last Infusion: 10/12/21 10:25 Dose: 0 mls/hr Documented by: [id number] Admin: 10/12/21 09:36 Dose: 999 mls/hr Documented by: [id number] Sodium Chloride (Nss 1000ml) 1,000 mls @ 999 mls/hr IV .Q1H1M ONE Stop: 10/12/21 10:01 Last Infusion: 10/12/21 10:25 Dose: 0 mls/hr Documented by: [id number] Admin: 10/12/21 09:03 Dose: 999 mls/hr Documented by: [id number] Cefepime HCl (Maxipime) 2,000 mg in 20 mls @ 5 mls/min IV NOW STA; Protocol Stop: 10/12/21 09:05 Last Admin: 10/12/21 10:03 Dose: 5 mls/min Documented by: [id number] Vancomycin HCl 2,250 mg/ (Sodium Chloride) 545 mls @ 200 mls/hr IV NOW ONE Stop: 10/12/21 11:45 Last Admin: 10/12/21 13:16 Dose: Not Given Documented by: [id number] Amiodarone HCl/Dextrose (Nexterone / D5w) 150 mg in 100 mls @ 600 mls/hr IV NOW STA Stop: 10/12/21 09:23 Last Infusion: 10/12/21 10:07 Dose: 0 mls/hr Documented by: [id number] Cosigned by: [id number] Admin: 10/12/21 09:19 Dose: 600 mls/hr Documented by: [id number] Cosigned by: [id number] Midazolam HCl (Versed) 125 mg in 250 mls @ 2 mls/hr IV .Q96H CHINTAN; Protocol Stop: 11/11/21 11:44 Last Admin: 10/12/21 12:00 Dose: 2 mg/hr, 4 mls/hr Documented by: [id number] Cosigned by: [id number] Piperacillin Sod/Tazobactam (Sod 3.375 gm/ Dextrose) 115 mls @ 230 mls/hr IV NOW ONE; Protocol Stop: 10/12/21 13:44 Last Admin: 10/12/21 13:22 Dose: 230 mls/hr Documented by: [id number] Lidocaine HCl (Lidocaine 2% 20 Mg/Ml 5 Ml Syr) 100 mg IV NOW STA Stop: 10/12/21 10:52 Last Admin: 10/12/21 11:06 Dose: 100 mg Documented by: [id number] Lidocaine HCl/Dextrose (Lidocaine Iv Bolus & Drip) 1 ea IV NOW STA Stop: 10/12/21 10:52 Last Admin: 04/11/22 13:16 Dose: Not Given Documented by: [id number] Midazolam HCl (Midazolam Hcl 1 Mg/Ml 2ml Vial) Confirm Administered Dose 2 mg .ROUTE .STK-MED ONE Stop: 10/12/21 11:19 Last Admin: 10/12/21 13:18 Dose: 2 mg Documented by: [id number] Miscellaneous (Stat Iv Infusion Titration Per Protocol) 1 ea N/A NOW STA Stop: 10/12/21 09:15 Last Admin: 10/12/21 09:36 Dose: 1 ea Documented by: [id number] Miscellaneous (Rapid Sequence Induction Bag) Confirm Administered Dose 1 ea .ROUTE .STK-MED ONE Stop: 10/12/21 11:11 Last Admin: 10/12/21 13:17 Dose: 1 ea Documented by: [id number] Miscellaneous (Rapid Sequence Induction Bag) Confirm Administered Dose 1 ea .ROUTE .STK-MED ONE Stop: 10/12/21 11:15 Last Admin: 10/12/21 13:17 Dose: Not Given Documented by: [id number] Norepinephrine Bitartrate (Norepinephrine/D5w 8 Mg/508 Ml) Confirm Administered Dose 8 mg IV .STK-MED ONE Stop: 10/12/21 11:22 Last Admin: 10/12/21 13:20 Dose: Not Given Documented by: [id number] Imaging Data Radiologist's Impression: Chest X-Ray 10/12/21 08:42 SINGLE VIEW CHEST CLINICAL HISTORY: Dysrhythmia FINDINGS: PA upright and AP semierect portable chest radiographs are obtained. No prior studies are available for comparison at the time of dictation. The heart is enlarged. The pulmonary vasculature is noncongested. Airspace opacities are noted at the left lung base. Scarring/atelectasis is seen at the right lung base. No large pleural effusion or pneumothorax is seen. The bony thorax is grossly intact. IMPRESSION: 1. Cardiomegaly without radiographic evidence of congestive failure. 2. Airspace opacities are noted at the left lung base. This could represent atelectasis versus a mild infectious/inflammatory pneumonitis. Clinical cor relation will be required and radiographic follow-up to resolution is recommended. ACT 112: Negative or not required by law. Electronically signed by: Dex Gold M.D. 10/12/2021 9:27 AM Discharge Plan Visit Data Chief Complaint: Tachycardia Stated Complaint: tachycardia,heart rate 180,lightheaded,chest presr Discharge Problem: Ventricular tachycardia, CATARINO (acute kidney injury), Elevated troponin, Lactic acidosis, Hx of supraventricular tachycardia Patient Disposition: Admitted As Inpatient Discharge Instructions Interventions: ED Discharge Assessment Last Done: 10/12/21 10:45
[2021-10-12] MEDS ORDERED: ADENOSINE IV SOLN 3 MG/ML 2 ML VIAL IV ONE ×2 (08:40→08:49)
[2021-10-12] MEDS ORDERED: SODIUM CHLORIDE 0.9% 500 ML IV STA (08:41)
[2021-10-12] MEDS ORDERED: fentaNYL citrate 100 MCG/2 ML VIAL ONE ×2 (08:51→13:20)
[2021-10-12] MEDS ORDERED: fentaNYL citrate 100 MCG/2 ML VIAL IV STA (08:55)
[2021-10-12 09:00] LABS: Hematocrit (blood only) 47.6 % (42-52); Hemoglobin 16.5 g/dL (14.0-18.0); Mean Corpuscular Hemoglobin 32.7 pg (25-34); Mean Corpuscular Hgb Conc 34.7 g/dL (32-36); Mean Corpuscular Volume 94.4 fL (80-100); Mean Platelet Volume 10.8 fL (7.4-10.4); Platelet Count 277 K/uL (130-400); RDW Coefficient of Variation 13.1 % (11.5-14.5); Red Blood Count 5.04 M/uL (4.7-6.1); White Blood Count 32.68 K/uL (4.8-10.8)
[2021-10-12] MEDS ORDERED: SODIUM CHLORIDE 0.9% 1000ML 1,000 ML IV ONE (09:01)
[2021-10-12] MEDS ORDERED: CEFEPIME 2,000 MG/20 ML VIAL IV STA (09:02)
[2021-10-12] MEDS ORDERED: VANCOMYCIN CONSULT ACTIVE PRN ×2 (09:02→10:43)
[2021-10-12] MEDS ORDERED: VANCOMYCIN HCL 2,250 MG in SODIUM CHLORIDE 0.9% 500 ML IV ONE (09:02)
[2021-10-12] MEDS ORDERED: STAT IV Infusion **Titration per Protocol STA ×3 (09:14→16:30)
[2021-10-12] MEDS ORDERED: 0.2 MICRON FILTER SET 1 EA IV ONE (09:14)
[2021-10-12] MEDS ORDERED: AMIODARONE IV BOLUS & DRIP IV STA (09:14)
[2021-10-12] MEDS ORDERED: AMIODARONE / D5W 150 MG/100 ML BAG IV STA (09:14)
[2021-10-12 09:21] LABS: Troponin I 0.18 ng/ml (0-0.04)
[2021-10-12 09:22] LABS: Basophils # (auto) 0.05 K/uL (0-0.2); Basophils % (auto) 0.2 %; Eosinophils # (auto) 0.02 K/uL (0-0.5); Eosinophils % (auto) 0.1 %; Immature Granulocytes # (auto) 0.12 K/uL (0.00-0.02); Immature Granulocytes % (auto) 0.4 %; Lymphocytes % (auto) 10.7 %; Monocytes # (auto) 3.51 K/uL (0.11-0.59); Monocytes % (auto) 10.7 %; Neutrophils # (auto) 25.48 K/uL (1.4-6.5); Neutrophils % (auto) 77.9 %
[2021-10-12] MEDS ORDERED: AMIODARONE / D5W 360 MG/200 ML BAG IV ONE (09:24)
--- NOTE | 2021-10-12 09:29 | XRay Report ---
SINGLE VIEW CHEST CLINICAL HISTORY: Dysrhythmia FINDINGS: PA upright and AP semierect portable chest radiographs are obtained. No prior studies are a vailable for comparison at the time of dictation. The heart is enlarged. The pulmonary vasculature i s noncongested. Airspace opacities are noted at the left lung base. Scarring/atelectasis is seen at t he right lung base. No large pleural effusion or pneumothorax is seen. The bony thorax is grossly int act. IMPRESSION: 1. Cardiomegaly without radiographic evidence of congestive failure. 2. Airspace opacities are noted at the left lung base. This could represent atelectasis versus a mild infectious/inflammatory pneumonitis. Clinical correlation will be required and radiographic follow-u p to resolution is recommended. ACT 112: Negative or not required by law. Electronically signed by: Dex Gold M.D. 10/12/2021 9:27 AM
[2021-10-12 09:35] LABS: Albumin Globulin Ratio 1.6 (0.9-2); Albumin Level 4.4 gm/dl (3.4-5.0); BUN Creatinine Ratio 9.2 (10-20); Calcium 9.7 mg/dl (8.5-10.1); Creatinine Clr Calc Pharmacy 32.5 ml/min; Est GFR (African American) 28.5 ml/min; Est GFR (Non-African American) 24.6 ml/min; Globulin 2.8 gm/dl (2.5-4.0); Magnesium 2.1 mg/dl (1.7-2.4); Phosphorus 5.6 mg/dl (2.5-4.9); Potassium 4.6 mmol/L (3.5-5.1); Total Protein 7.2 gm/dl (6.0-8.3)
--- NOTE | 2021-10-12 09:43 | Cardiology Consultation ---
Date of Consultation October 12, 2021 Assessment & Plan (1) Ventricular tachycardia, incessant: (2) CAD (coronary artery disease): (3) Hx of supraventricular tachycardia: (4) Hypertension: Luckily, we had an old ekg from the office for comparison, which showed sinus rhythm with a PVC the patient's current rhythm is very similar to his previous ventricular ectopy Adenosine x2 in ED with no pause or change in rate or rhythm patient is curently in stable, sustained ventricular tachycardia external defibrillation x 2 with no change of rhythm but slight improvement in rate from 190 to 160 repeat post ekg reveals no change in rhythm will bolus NSS now bolus and load IV amiodarone Hemodynamically stable but should he become unstable, further defibrillations will be delivered my hope is to achieve sinus rhythm with amiodarone bolus and load at this point. at approx 0945, became hypotensive with SBP of 44, some lightheadedness reported but remained awake, alert and conversive asked ER staff to prep for possible intubation post defibrillation luckily, bp improved to sbp 80's Patient then transferred to the intensive care unit. While in the ICU he had a brief loss of consciousness and apneic event. At that time the axis of his arrhythmias shifted. Repeat EKG performed showed ST segment elevations in the inferior leads. I requested intubation mechanical ventilation for airway protection at that time. Patient was intubated. During intubation patient converted to normal sinus rhythm. Immediately post intubation patient lost a palpable pulse but remained in sinus bradycardia on telemetry, pulseless electrical activity. ACLS initiated. See full code note separately. Patient successfully resuscitated. Started on pressors. Triple-lumen venous catheter and arterial line placed by ICU team. The patient then remained stable and underwent cardiac catheterization. Cardiac catheterization revealed chronic total occlusion of the mid RCA just proximal to old bare-metal stent. No other obstructive disease. This does not appear to be an ischemic event rather a primary arrhythmogenic event. We will continue amiodarone to maintain sinus rhythm. Lidocaine may also be added with any recurrent episodes of stable ventricular tachycardia. Our electrophysiology colleagues will evaluate him as well to determine further treatment plan. Appreciate critical care team, will obviously defer vent and pressure support to their expertise. I did discuss with his significant other, Tiffanie, first by phone after his pulseless event. Then again in the [facility] waiting room after catheterization. critical care time: 250 minutes History of Present Illness Reason for Consultation: wide complex tachycardia Requesting Physician: Dr. Barajas Attending Physician: MALENA History of Present Illness Mr. Willson is a very pleasant 66 yo gentleman that has followed with Dr. Cramer and Dr. Domínguez of our cardiology practice. He presented to [facility] in the early AM of 10/12/21 with complaints of palpitations and heart rates in the 190's. He was in his normal state of health until he took his 2 dogs for a walk last evening after dinner. On the walk he states he felt as though he was hit by a bolt of lightening and felt a jolt in his chest. He denied any associated chest pain, shortness of breath or lightheadedness at that time. He did feel his heart racing went home and checked his pulse and it was in the 190s. He did not alert his significant other to this and thought that it might go away on its own. He then had a very restless night and presented to the emergency department early in the a.m. of 10/12/2021. Upon arrival he was found to be in wide-complex tachycardia. He was given adenosine x1 with no pause. Electrical cardioversion was then attempted again with no change in rhythm. I was consulted and was at the patient's bedside moments later. Identified the patient was in ventricular tachycardia. IV amiodarone bolus and load was started along with aggressive IV fluid for pressure support. At this point, the patient was maintaining a good systolic blood pressure and mentating clearly without complaint. He then had labile blood pressure readings while in the intensive care unit and attempted electrical defibrillation x2 after receiving amiodarone bolus and 1 hour of IV drip, unsuccessful. Past medical history: 1. CAD, history of NH in 1998 status post BMS to RCA 2. Ischemic cardiomyopathy , Chronic systolic heart failure, NYHA class 1, LVEF 45-50% on echo 02/06/2021 3. Hypertension 4. PVD with claudication, status post stenting x3 to right iliac, 03/29/2014 5. History of wide complex tachycardia, possibly ventricular tachycardia status post external cardioversion x2- most recent episode at [facility] 01/26/2017 6. Dyslipidemia, LDL goal below 70 7. Former tobacco use- continues to use electric cigarettes 8. Former alcohol abuse, sober x20+ years Allergies Allergy/AdvReac Type Severity Reaction Status Date / Time No Known Allergies Allergy Unverified 10/12/21 09:13 Home Medications Medication Instructions Recorded Confirmed Type aspirin 81 mg tablet,delayed 81 mg PO DAILY #0 01/26/17 10/12/21 History release (Aspirin Low Dose) atorvastatin 80 mg tablet 80 mg PO DAILY #0 tab 01/26/17 10/12/21 History carvedilol 6.25 mg tablet 6.25 mg PO BID #0 tab 01/26/17 10/12/21 History enalapril maleate 2.5 mg tablet 2.5 mg PO HS #0 tab 01/26/17 10/12/21 History ezetimibe 10 mg tablet 10 mg PO DAILY 10/12/21 10/12/21 History nitroglycerin 0.4 mg sublingual 0.4 mg SUBLINGUAL DIRECTED PRN 10/12/21 10/12/21 History tablet Patient History Medical History CAD (coronary artery disease) Chronic HFrEF (heart failure with reduced ejection fraction) COPD (chronic obstructive pulmonary disease) HLD (hyperlipidemia) Hx of myocardial infarction Hx of supraventricular tachycardia Hypertension Ischemic cardiomyopathy PAD (peripheral artery disease) Surgical History History of angioplasty of peripheral vessel PCI x 3 to Right Iliac 03/29/2014 History of heart artery stent 1999 BMS to RCA Family History Mother Stroke Social History Smoking Status: Former smoker Smoking End Date: 05/2012; Hx Alcohol Use: Yes (no ETOH in 25yrs) Hx Substance Use: No Preferred Language: Faroese marital status: Current Living Situation: Significant Other Current Living Situation Comment: Lives with and mother who is 93, he is caregiver Feels Safe at Home: Yes Assistive Devices Comment: unknown Review of Systems Review of Systems: All systems reviewed & are unremarkable except as noted in HPI & below Physical Exam Physical Exam: Physical Exam: General: Awake, alert and oriented x 3. No acute distress. HEENT: Normocephalic, atraumatic. Pupils equal, round and reactive to light and accommodation. Extraocular muscles are intact. Anicteric sclera. Moist mucous membranes. Neck: No JVD. No bruit. Cardiovascular: Regular but extremely tachycardic. Unable to appreciate any murmurs, rubs or gallops. Pulmonary: Clear to auscultation bilaterally. No rales, rhonchi, or wheezing. Abdomen: Bowel sounds x 4, soft. No rebound, guarding or tenderness. No organomegaly. Extremities: No clubbing, cyanosis or edema. +2 pedal pulses bilaterally. Skin: Warm and dry. multiple nevi of the thorax Results & Data ([facility]) Vital Signs (Past 12 Hours) Vital Signs Temp Pulse Resp BP 10/12/21 09:20 171 H 19 10/12/21 09:10 170 H 17 10/12/21 09:00 165 H 18 97/82 L 10/12/21 08:59 164 H 20 10/12/21 08:54 190 H 23 62/43 L 10/12/21 08:50 189 H 24 10/12/21 08:42 189 H 28 H 81/67 L 10/12/21 08:40 193 H 27 H 10/12/21 08:30 36.4 C L 20
--- NOTE | 2021-10-12 10:30 | History & Physical Report ---
Date of Service October 12, 2021 Assessment & Plan (1) Ventricular tachycardia, incessant: (2) CATARINO (acute kidney injury): (3) Transaminitis: (4) Elevated troponin: (5) Pneumonia: (6) COPD without exacerbation: Plan: This is a 66-year-old male who has significant past medical history of CAD with history of [place] 1998 status post BMS to RCA, history of ischemic cardiomyopathy, chronic HFrEF, history of SVT, HTN, HLD, history of PAD with angioplasty, COPD, former tobacco and alcohol user who presents to ED after complaining of shortness of breath and palpitations for 12 hours. Incessant ventricular tachycardia Cardiogenic shock PEA Cardiac Arrest Elevated troponin CATARINO Transaminitis Lactic acidosis Possible pneumonia CAD Hyperglycemia Admit to intensive care unit, discussed with chocolate temperer Dr. Keita Pt remains on Amiodarone gtt, received bolus in ED Lidocaine bolus given x [address] Loving on board continue broad spectrum antibiotics with zosyn until infectious etiology ruled in/out, Possible LLL PNA Vanco d/c 2/ to MRSA negative Continue IVF per ICU hyperglycemia protocol, no hx of DM, a1c in a.m. pt renal/hepatic function are normal at baseline please refer to chocolate temperer consultation for further management regarding critically ill patient DVT ppx: SCD/TEDS for now until determined if pt to require procedure, initiate chemical prophylaxis when able Dispo: ICU, to remain under care of ICU FULL CODE PCP: Ella Pt was seen and examined in collaboration with Dr. Zhou, please see addendum History of Present Illness Chief Complaint: SOB, ill feeling x 12 hours Primary Care Provider: Dr. Jaramillo This is a 66-year-old male who has significant past medical history of CAD with history of VT 1998 status post BMS to RCA, history of ischemic cardiomyopathy, chronic HFrEF, history of SVT, HTN, HLD, history of PAD with angioplasty, COPD, former tobacco and alcohol user who presents to ED after complaining of shortness of breath and palpitations for 12 hours. Patient states he finished dinner last evening and went out to walk the dogs when all of a sudden he felt palpitations and short of breath. He tried 1 nitroglycerin without improvement. He did go inside and rest. Symptoms did not resolve and therefore came to ED. He denied any associated chest pain, lightheadedness, dizziness, syncope or diaphoresis. He has prior history of VT and does not feel this feels similar. He denies any recent illness or sick contacts. He denies documented fever, chills, sweats, chest pain, hemoptysis, nausea, vomiting, abdominal pain, diarrhea, melena, medic easier, dysuria, increased urgency or frequency with urination. He does have a chronic cough in setting of COPD and former tobacco abuse. Cough is wet and occasionally productive. He states occasionally it is purulent and other times it is clear. He feels it is unchanged. He denies any orthopnea or PND. Patient presented to ED with sustained monomorphic V. tach with heart rates in the 160s to 190s. Initially patient was given 6 mg and tomograms of adenosine without change to rhythm. He became hypotensive and received 100 J cardioversion without improvement. Cardiology was called to bedside. He was started on amiodarone bolus and drip. He persisted to be significantly tachycardic and hypotensive. He remained asymptomatic throughout and stated he, "felt well." 2 additional attempts of cardioversion were attempted at 360 J without improvement. He did receive 2L of IVF in ED along with initiated on broad spectrum antibiotics with vanco/zosyn due to concern for underlying sepsis. Patient will be admitted to ICU. Per chart review of [facility] patient did last have an exercise echo stress test on 02/06/2021 which was negative for inducible ischemia. Resting echo did reveal dilated LV chamber size with normal wall thickness, LVEF 45 to 50%, severe hypokinesis to akinesis of the inferior/inferolateral walker otherwise normal wall function, grade 1 diastolic dysfunction. Patient did previously follow with EP due to history of SVT. Patient did require cardioversion in the past but never underwent any formal procedures including ablation. Allergies Allergy/AdvReac Type Severity Reaction Status Date / Time No Known Allergies Allergy Unverified 10/12/21 09:13 Home Medications Medication Instructions Recorded Confirmed Type aspirin 81 mg tablet,delayed 81 mg PO DAILY #0 01/26/17 10/12/21 History release (Aspirin Low Dose) atorvastatin 80 mg tablet 80 mg PO DAILY #0 tab 01/26/17 10/12/21 History enalapril maleate 2.5 mg tablet 2.5 mg PO HS #0 tab 01/26/17 10/12/21 History ezetimibe 10 mg tablet 10 mg PO DAILY 10/12/21 10/12/21 History nitroglycerin 0.4 mg sublingual 0.4 mg SUBLINGUAL DIRECTED PRN 10/12/21 0 10/12/21 History tablet amiodarone 200 mg tablet 400 mg PO BID #60 tab 10/15/21 Rx metoprolol tartrate 50 mg tablet 50 mg PO BID #60 tab 10/15/21 Rx Past Med/Surg History Medical History CAD (coronary artery disease) Chronic HFrEF (heart failure with reduced ejection fraction) COPD (chronic obstructive pulmonary disease) HLD (hyperlipidemia) Hx of myocardial infarction Hx of supraventricular tachycardia Hypertension Ischemic cardiomyopathy PAD (peripheral artery disease) Surgical History History of angioplasty of peripheral vessel PCI x 3 to Right Iliac 03/29/2014 History of heart artery stent 1999 BMS to RCA Family History Mother Stroke Social History Smoking Status: Former smoker Hx Alcohol Use: Yes (no ETOH in 25yrs) Hx Substance Use: No Preferred Language: French Communication Ability: Effective marital status: Current Living Situation: Significant Other Current Living Situation Comment: Lives with and mother who is 93, he is caregiver Feels Safe at Home: Yes Assistive Devices: Review of Systems Review of Systems: All systems reviewed & are unremarkable except as noted in HPI & below Physical Exam Physical Exam: Constitutional: WD/WN, pale, vitals as above, NAD, lying in bed, pleasant, conversing easily Head: Normocephalic, Atraumatic Eyes: PERRL, conjunctivae normal, anicteric sclerae ENMT: external ear and nose normal, oropharynx normal Neck: trachea midline, no thyromegaly normal visual inspection Respiratory: normal respiratory effort, lungs clear to auscultation, no wheeze, rales, rhonchi. Normal insp/exp effort, no accessory muscle use Cardiovascular: Regular rate, but tachycardic in the 180s , no murmur, no edema Vessels: no JVD or carotid bruit Chest: normal inspection of chest Abdomen: normal bowel sounds, soft, nontender, no hepatosplenomegaly Musculoskeletal: no cyanosis or clubbing, extremities motor strength 5/5 Skin: no rashes, warm and dry normal turgor Neurologic: PERRL, EOMI, accommodation nl, no face palsy, no dysarthria CN's II-XI intact bilaterally and moves all extremities Psychiatric: A+Ox3, euthymic affect Lymphatic: no cervical or axillary lymphadenopathy : deferred Results & Data Results & Data ([facility]) Vital Signs (Past 12 Hours) Vital Signs Temp Pulse Resp BP Pulse Ox 10/12/21 10:03 163 H 26 H 81/57 L 97 10/12/21 10:00 163 H 24 80/54 L 100 10/12/21 09:59 163 H 88/59 L 99 10/12/21 09:55 163 H 30 H 98 10/12/21 09:53 163 H 81/69 L 100 10/12/21 09:50 164 H 25 H 89/62 L 100 10/12/21 09:48 164 H 25 H 70/59 L 100 10/12/21 09:47 164 H 23 77/61 L 100 10/12/21 09:44 163 H 22 100 10/12/21 09:41 163 H 22 44/24 L 100 10/12/21 09:40 164 H 20 100 10/12/21 09:38 164 H 17 76/55 L 96 10/12/21 09:36 163 H 20 82/66 L 99 10/12/21 09:32 163 H 20 10/12/21 09:30 164 H 20 10/12/21 09:27 167 H 24 89/76 L 10/12/21 09:25 169 H 20 99/71 L 10/12/21 09:20 171 H 19 10/12/21 09:10 170 H 17 10/12/21 09:00 165 H 18 97/82 L 10/12/21 08:59 164 H 20 10/12/21 08:54 190 H 23 62/43 L 10/12/21 08:50 189 H 24 10/12/21 08:42 189 H 28 H 81/67 L 10/12/21 08:40 193 H 27 H 10/12/21 08:30 36.4 C L 20 Diagnostic Findings Chest X-Ray 10/12/21 08:42 SINGLE VIEW CHEST CLINICAL HISTORY: Dysrhythmia FINDINGS: PA upright and AP semierect portable chest radiographs are obtained. No prior studies are available for comparison at the time of dictation. The heart is enlarged. The pulmonary vasculature is noncongested. Airspace opacities are noted at the left lung base. Scarring/atelectasis is seen at the right lung base. No large pleural effusion or pneumothorax is seen. The bony thorax is grossly intact. IMPRESSION: 1. Cardiomegaly without radiographic evidence of congestive failure. 2. Airspace opacities are noted at the left lung base. This could represent atelectasis versus a mild infectious/inflammatory pneumonitis. Clinical correlation will be required and radiographic follow-up to resolution is recommended. ACT 112: Negative or not required by law. Electronically signed by: Dex Gold M.D. 10/12/2021 9:27 AM Medications Administered Medication List Amiodarone HCl/Dextrose (Nexterone / D5w) 360 mg in 200 mls @ 33.333 mls/hr IV ONE ONE Stop: 10/12/21 15:23 Last Admin: 10/12/21 09:30 Dose: 33.3 mls/hr Documented by: [id number] Cosigned by: [id number] Discontinued Medications Adenosine (Adenosine Iv Soln 3 Mg/Ml 2 Ml Vial) Confirm Administered Dose 12 mg IV .STK-MED ONE Stop: 10/12/21 08:41 Last Admin: 10/12/21 08:48 Dose: 12 mg Documented by: [id number] Adenosine (Adenosine Iv Soln 3 Mg/Ml 2 Ml Vial) Confirm Administered Dose 6 mg IV .STK-MED ONE Stop: 10/12/21 08:50 Last Admin: 10/12/21 08:56 Dose: 6 mg Documented by: [id number] Amiodarone HCl (Amiodarone Iv Bolus & Drip) 1 ea IV NOW STA; Protocol Stop: 10/12/21 09:15 Last Admin: 10/12/21 09:36 Dose: 1 ea Documented by: [id number] Fentanyl Citrate (Fentanyl Citrate 100 Mcg/2 Ml Vial) Confirm Administered Dose 100 mcg .ROUTE .STK-MED ONE Stop: 10/12/21 08:52 Last Admin: 10/12/21 09:05 Dose: Not Given Documented by: [id number] Fentanyl Citrate (Fentanyl Citrate 100 Mcg/2 Ml Vial) 75 mcg IV NOW STA Stop: 10/12/21 08:56 Last Admin: 10/12/21 09:03 Dose: 75 mcg Documented by: [id number] Sodium Chloride (Nss) 500 mls @ 999 mls/hr IV .Q31M STA Stop: 10/12/21 09:11 Last Infusion: 10/12/21 10:25 Dose: 0 mls/hr Documented by: [id number] Admin: 10/12/21 09:36 Dose: 999 mls/hr Documented by: [id number] Sodium Chloride (Nss 1000ml) 1,000 mls @ 999 mls/hr IV .Q1H1M ONE Stop: 10/12/21 10:01 Last Infusion: 10/12/21 10:25 Dose: 0 mls/hr Documented by: [id number] Admin: 10/12/21 09:03 Dose: 999 mls/hr Documented by: [id number] Cefepime HCl (Maxipime) 2,000 mg in 20 mls @ 5 mls/min IV NOW STA; Protocol Stop: 10/12/21 09:05 Last Admin: 10/12/21 10:03 Dose: 5 mls/min Documented by: [id number] Amiodarone HCl/Dextrose (Nexterone / D5w) 150 mg in 100 mls @ 600 mls/hr IV NOW STA Stop: 10/12/21 09:23 Last Infusion: 10/12/21 10:07 Dose: 0 mls/hr Documented by: [id number] Cosigned by: [id number] Admin: 10/12/21 09:19 Dose: 600 mls/hr Documented by: [id number] Cosigned by: [id number] Miscellaneous (Stat Iv Infusion Titration Per Protocol) 1 ea N/A NOW STA Stop: 10/12/21 09:15 Last Admin: 10/12/21 09:36 Dose: 1 ea Documented by: [id number] ECG Rate (beats per minute): 190 Rhythm: v-tach COVID-19 Results Results COVID-19 Adm Lab Results: RBC 3.90 M/uL (4.7-6.1) L 10/15/21 WBC 11.73 K/uL (4.8-10.8) H 10/15/21 Hgb 12.4 g/dL (14.0-18.0) L 10/15/21 Hct 36.1 % (42-52) L 10/15/21 Plt Count 156 K/uL (130-400) 10/15/21 Neutrophils (%) (Auto) 73.2 % 10/15/21 Lymphocytes (%) (Auto) 17.5 % 10/15/21 Monocytes # (Auto) 1.01 K/uL (0.11-0.59) H 10/15/21 Eosinophils # (Auto) 0.02 K/uL (0-0.5) 10/15/21 Immature Granulocyte % (Auto) 0.3 % 10/15/21 Neutrophils # (Auto) 8.60 K/uL (1.4-6.5) H 10/15/21 Lymphocytes # (Auto) 2.05 K/uL (1.2-3.4) 10/15/21 Monocytes # (Auto) 1.01 K/uL (0.11-0.59) H 10/15/21 Eosinophils # (Auto) 0.02 K/uL (0-0.5) 10/15/21 Basophils # (Auto) 0.02 K/uL (0-0.2) 10/15/21 Immature Granulocyte # (Auto) 0.03 K/uL (0.00-0.02) H 10/15/21 Na 142 mmol/L (136-145) 10/15/21 K 3.6 mmol/L (3.5-5.1) 10/15/21 Cl 109 mmol/L (98-107) H 10/15/21 CO2 28 mmol/L (21-32) 10/15/21 Anion Gap 5 (3-11) 10/15/21 BUN 16 mg/dl (6-23) 10/15/21 Creatinine 0.70 mg/dl (0.6-1.4) 10/15/21 BUN/Creatinine Ratio 22.9 (10-20) H 10/15/21 Glucose Level 106 mg/dl (70-99(Fasting)) H 10/15/21 Ca 8.2 mg/dl (8.5-10.1) L 10/15/21 Phosphorus Level 2.6 mg/dl (2.5-4.9) 10/15/21 Total Bilirubin 1.0 mg/dl (0.2-1.0) 10/15/21 Direct Bilirubin 0.2 mg/dl (0-0.2) 10/15/21 AST/SGOT 48 U/L (13-39) H 10/15/21 ALT/SGPT 108 U/L (7-52) H 10/15/21 Alkaline Phosphatase 56 U/L (34-104) 10/15/21 Total Protein 5.5 gm/dl (6.0-8.3) L 10/15/21 Albumin 3.1 gm/dl (3.4-5.0) L 10/15/21 Globulin 2.8 gm/dl (2.5-4.0) 10/12/21 Albumin/Globulin Ratio 1.6 (0.9-2) 10/12/21 Troponin I 1.27 ng/ml (0-0.04) H* 10/12/21 Procalcitonin 0.40 ng/ml (0-0.5) 10/12/21 SARS-CoV-2, RNA, NAAT NEGATIVE (NEGATIVE) 10/12/21 Sample Site Art Line 10/13/21 POC pH 7.42 (7.35-7.45) 10/13/21 POC pCO2 39 mmHg (35-46) 10/13/21 POC pO2 75 mmHg (80-95) L 10/13/21 POC HCO3 25 breonna/L (19-24) H 10/13/21 POC Total CO2 26 mmol/L (24-31) 10/13/21 POC Base Excess 1.0 breonna/L (-9-1.8) 10/13/21 Ox Delivery Device BIPAP 10/13/21 POC O2 Rate 24 10/13/21 Tidal Volume 480 10/13/21 PEEP 10 10/13/21 Chest X-Ray 10/15/21 Code Status & VTE Plan Code Status FULL CODE VTE Prophylaxis Plan VTE Prophylaxis will be ordered: Yes Supervising Physician Co-Signing Physician Notes Pt was seen and examined. Agreed with Berenice LLAMAS exam, assessment and plan. 66-year-old male who has significant past medical history of CAD with history of VT 1999 status post BMS to RCA, history of ischemic cardiomyopathy, chronic HFrEF, history of SVT, HTN, HLD, history of PAD with angioplasty, COPD, former tobacco and alcohol user who presents to ED after complaining of shortness of breath and palpitations for 12 hours. in the ED he was found to be in sustained monomorphic V. tach with heart rates in the 160s to 190s. Recorder Helper Seismograph at bedside and was starting on amiodarone drip. He was intubated for airway protection. Then few minute later he was in PEA and code blue called. Intubated on vent support yesterday. He was ROSC and he was placed on pressor Cardiology on board. Will continue monitor closely in ICU. MD Abelardo
[2021-10-12] MEDS ORDERED: PIPERACILL/TAZOBAC CONSULT ACTIVE PRN (10:43)
[2021-10-12] MEDS ORDERED: ICU PROTOCOL FOR HYPERGLYCEMIA PRN (10:43)
[2021-10-12] MEDS ORDERED: LIDOCAINE IV BOLUS & DRIP IV STA (10:51)
[2021-10-12] MEDS ORDERED: LIDOCAINE 2% 20 MG/ML 5 ML SYR IV STA (10:51)
[2021-10-12] MEDS ORDERED: LIDOCAINE/D5W DRIP 4MG/ML 2,000 MG/500 ML BAG IV SCH (11:00)
[2021-10-12] MEDS ORDERED: RAPID SEQUENCE INDUCTION BAG ONE ×2 (11:10→11:14)
[2021-10-12] MEDS ORDERED: MIDAZOLAM HCL 1 MG/ML 2ML VIAL ONE ×2 (11:18→13:20)
[2021-10-12] MEDS ORDERED: NOREPINEPHRINE/D5W 8 MG/508 ML IV ONE (11:21)
[2021-10-12] MEDS: Standard Conc 16mcg/mL; 8mg in 500mL IV SCH ×2 (11:30→18:46)
[2021-10-12] MEDS ORDERED: MIDAZOLAM BOLUS FROM BAG IV PRN (11:43)
[2021-10-12] MEDS ORDERED: Standard 16mcg/mL; 4 MG in 250 mL for HYPOTENSION IV SCH (11:45)
[2021-10-12] MEDS ORDERED: fentaNYL citrate 2,500 MCG/250 ML BAG IV SCH (11:45)
[2021-10-12] MEDS ORDERED: MIDAZOLAM HCL 125 MG/250 ML BAG IV SCH (11:45)
--- NOTE | 2021-10-12 11:53 | Anesthesia Procedure Note ---
Anesthesia Procedure Note Intubation Note Date of procedure: 10/12/21 Indication for intubation: Failure to oxygenate Consent: Risk / Benefits Reviewed With: PT / POA / Parent / Guardian, Accepts Plan, All Questions Answered and Emergency Monitors attached: Blood Pressure, EKG and Pulse Oximetry Time out completed: No Premedication: Midazolam (mg) (2), Propofol (mg) (100) and Other (phenylepherine 100 mcg) Paralytic medication: Succinylcholine (mg) (120) Intubation technique: Adequate preoxygenation, RSI and Cricoid pressure Equipment: Glidescope View: Grade 1 Endotracheal tube: 7.5, with Stylet, Tube secured @ cm and Balloon inflated Attempts: 1 and Atraumatic Tube placement confirmation: auscultation and Positive CO2 detection Procedure Summary: called emergently to intubate the patient at the request of dr mosquera. pt was responsive but pt is pale and without peripheral pulses. unable to obtain bp. pt is tachycardia and O2 saturation ~80%. pt intubation for impending cardiac arrest. pt was premedicated. cricoid applied. pt intubated using glidescope by reina. +etco2 and b/l b/s, care per primary team Post-procedure: No complication
--- NOTE | 2021-10-12 12:17 | XRay Report ---
XR chest 1V portable CLINICAL HISTORY: Intubation/ OG Tube TECHNIQUE: Single frontal radiograph of the chest was obtained. Comparison: Comparison is made to chest one view 10/12/2021 FINDINGS: Interval placement of endotracheal tube with the tip 39 mm from the myesha. Enteric tube is seen with the side-port below the diaphragm. Cardiomegaly is noted. Multifocal airspace opacities are seen. No evidence of pleural effusion or pneumothorax. IMPRESSION: 1. Multifocal airspace opacities may represent atelectasis, pneumonia, and/or aspiration. 2. Satisfactory position of endotracheal tube and enteric tube. ACT 112: Negative or not required by law. Electronically signed by: Miguel Dunbar M.D. 10/12/2021 12:15 PM
--- NOTE | 2021-10-12 12:47 | Critical Care Consultation ---
Date of Consultation October 12, 2021 Assessment & Plan (1) Ventricular tachycardia, incessant: (2) Cardiac arrest: (3) Lactic acidosis: (4) Elevated troponin: (5) Transaminitis: (6) CATARINO (acute kidney injury): ICU CONSULT NOTE FORMAT: Reason Critically Ill: 66-year-old male with past medical history of coronary artery disease s/p RCA stent 1998, systolic CHF, peripheral vascular disease, COPD presented to the hospital with complaints of shortness of breath. Patient was found to be in V. tach. Did not respond to amiodarone and cardioversion. He was sent to the ICU to manage for V. tach storm. Had cardiac arrest on 10/12/2021, was following commands following that Neuro - [facility] ICU: Sedation: Midazolam Anesthesia: Fentanyl Cardiac - --V. tach storm On amiodarone drip Patient got 1 dose of lidocaine EP and cardiology on board --Cardiac arrest with cardiogenic shock PEA, status post excessive resuscitation 10/12/21 Trend troponin Continue with ventilatory support Continue with vasopressors to keep MAP greater than 65 --Elevated troponin Likely from type II CA Continue to trend Respiratory - -- VDRF Likely secondary to cardiac arrest with pulmonary edema Continue with ventilatory support Keep RASS -1 Daily sedation holidays and SBT's Chlorhexidine mouthwash GI - --Transaminitis Likely from cardiogenic shock Continue to monitor RENAL/LYTES - --High anion gap metabolic acidosis Likely secondary lactic acidosis Follow-up ABG Continue to monitor --CATARINO on CKD Monitor BUNs/creatinine Avoid nephrotoxic medication - No acute issues ENDO - Continue with ICU hypoglycemia protocol HEME - --Leukocytosis Likely reactive to patient's current condition Nasal MRSA negative Patient did get a dose of antibiotics in the ED ID - Procalcitonin 0.4 Is likely reactive Continue to monitor --Prophylaxis VTE:Heparin GI: Protonix Lines: Right femoral, right radial, positive Alfaro Diet: N.p.o. Plan: Follow-up ABG Add vasopressin followed by epinephrine if need be to maintain MAP greater than 65 DC vancomycin Repeat labs Patient likely will need cardiac cath. Case was discussed with Dr. Loving I have personally spent 68 minutes of critical care time in the direct management of this patient. This is a life/limb threatening event. This includes time spent evaluating patient, direct bedside care, chart review, placing orders, interpretation of diagnostic studies, discussion with consultants, patient, and family members, as well as other required patient management activities. This time is exclusive of all separately billable procedures, and teaching time and separate from and in addition to any other critical care service time. History of Present Illness Attending Physician: Marybeth Zhou MD History of Present Illness 66-year-old male past medical history of coronary artery disease, status post RCA stent, chronic CHF, hypertension, dyslipidemia, COPD presented to hospital because of palpitations and shortness of breath In the ED patient's heart rate was found to be in the 160s 170s. Patient was given 100 J cardioversion by the ED. 2 other attempts were made by side show entertainer being at bedside 360 J no improvement. Patient was given bolus amiodarone and started on a drip He was sent to the ICU for further care. In the ICU patient was getting tachypneic, his heart rate still in the 160s. Plan to intubate was made. After intubation patient had PEA. Patient was given 100 mg of lidocaine. He did convert to sinus prior to PEA. Patient was successfully resuscitated after approximately 5 minutes of CPR. Patient was given 2 A of bicarb, 1 amp of calcium, 1 magnesium and 2 epi. Patient was awake and following commands. Patient was started on Levophed, he needed sedation as well Cardiology at bedside. Allergies Allergy/AdvReac Type Severity Reaction Status Date / Time No Known Allergies Allergy Unverified 10/12/21 09:13 Home Medications Medication Instructions Recorded Confirmed Type aspirin 81 mg tablet,delayed 81 mg PO DAILY #0 01/26/17 10/12/21 History release (Aspirin Low Dose) atorvastatin 80 mg tablet 80 mg PO DAILY #0 tab 01/26/17 10/12/21 History carvedilol 6.25 mg tablet 6.25 mg PO BID #0 tab 01/26/17 10/12/21 History enalapril maleate 2.5 mg tablet 2.5 mg PO HS #0 tab 01/26/17 10/12/21 History ezetimibe 10 mg tablet 10 mg PO DAILY 10/12/21 10/12/21 History nitroglycerin 0.4 mg sublingual 0.4 mg SUBLINGUAL DIRECTED PRN 10/12/21 10/12/21 History tablet Patient History Medical History (Updated 10/12/21 @ 12:46 by Verenice Keita MD) CAD (coronary artery disease) Chronic HFrEF (heart failure with reduced ejection fraction) COPD (chronic obstructive pulmonary disease) HLD (hyperlipidemia) Hx of myocardial infarction Hx of supraventricular tachycardia Hypertension Ischemic cardiomyopathy PAD (peripheral artery disease) Surgical History (Updated 10/12/21 @ 10:29 by Berenice Conner PA-C) History of angioplasty of peripheral vessel PCI x 3 to Right Iliac 03/29/2014 History of heart artery stent 1999 BMS to RCA Family History (Updated 10/12/21 @ 10:51 by Berenice Conner PA-C) Mother Stroke Social History (Updated 10/12/21 @ 10:34 by Berenice Conner PA-C) Smoking Status: Former smoker Smoking End Date: 05/2012; Hx Alcohol Use: Yes (no ETOH in 25yrs) Hx Substance Use: No Preferred Language: Venezuelan marital status: Current Living Situation: Spouse and Family Current Living Situation Comment: Lives with and mother who is 93, he is caregiver Feels Safe at Home: Yes Review of Systems Review of Systems: Unobtainable due to endotracheal tube Physical Exam Physical Exam: Constitutional: No acute distress HEENT: EOMI, PERRLA Respiratory system: Decreased air entry bilaterally, no wheeze, rhonchi, positive crackles bilaterally CVS: S1-S2 positive Abdomen: Soft, nontender, nondistended, positive bowel sounds x4 Extremities: +2 pulses bilaterally radialis/ dorsalis pedis, no cyanosis, no edema, cold extremities Neuro: Intubated Psych: Unable to assess G/U: Positive Alfaro Skin: no rashes, warm and dry Lymphatic: no cervical or axillary lymphadenopathy Results & Data Results & Data ([facility]) Vital Signs (Past 12 Hours) Vital Signs Temp Pulse Resp BP Pulse Ox 10/12/21 12:04 18 10/12/21 11:58 94 H 33 H 88 L 10/12/21 10:46 177 H 23 87/65 L 10/12/21 10:45 36.6 C 178 H 25 H 74/56 L 97 10/12/21 10:37 177 H 25 H 85/69 L 10/12/21 10:34 176 H 20 10/12/21 10:03 163 H 26 H 81/57 L 97 10/12/21 10:00 163 H 24 80/54 L 100 10/12/21 09:59 163 H 88/59 L 99 10/12/21 09:55 163 H 30 H 98 10/12/21 09:53 163 H 81/69 L 100 10/12/21 09:50 164 H 25 H 89/62 L 100 10/12/21 09:48 164 H 25 H 70/59 L 100 10/12/21 09:47 164 H 23 77/61 L 100 10/12/21 09:44 163 H 22 100 10/12/21 09:41 163 H 22 44/24 L 100 10/12/21 09:40 164 H 20 100 10/12/21 09:38 164 H 17 76/55 L 96 10/12/21 09:36 163 H 20 82/66 L 99 10/12/21 09:32 163 H 20 10/12/21 09:30 164 H 20 10/12/21 09:27 167 H 24 89/76 L 10/12/21 09:25 169 H 20 99/71 L 10/12/21 09:20 171 H 19 10/12/21 09:10 170 H 17 10/12/21 09:00 165 H 18 97/82 L 10/12/21 08:59 164 H 20 10/12/21 08:54 190 H 23 62/43 L 10/12/21 08:50 189 H 24 10/12/21 08:42 189 H 28 H 81/67 L 10/12/21 08:40 193 H 27 H 10/12/21 08:30 36.4 C L 20 Laboratory Results 10/12/21 08:42 10/12/21 08:42 Coding Level of Care Code Critical Care 1st 30-74 mins Diagnoses Ventricular tachycardia, incessant I47.2 Cardiac arrest I46.9 Lactic acidosis E87.2 Elevated troponin R77.8 Transaminitis R74.01 CATARINO (acute kidney injury) N17.9 Time Spent (min) 68 Comment >50% time was spent [id number] with the patient discussing diagnosis and plan of care.
[2021-10-12] MEDS ORDERED: PIPERACILLIN/TAZOBACTAM 3.375 GM in DEXTROSE 5% 100 ML IV ONE (13:15)
[2021-10-12] MEDS ORDERED: HEPARIN (PORCINE) 1000 UNIT/ML 10 ML (CATH LAB USE ONLY) ONE (13:19)
[2021-10-12] MEDS ORDERED: NITROGLYCERIN/D5W 100MCG/ML 20ML SYR ONE (13:20)
[2021-10-12] MEDS ORDERED: niCARdipine HCL INJ 2.5 MG/ML 10 ML AMP ONE (13:20)
[2021-10-12] MEDS: PHENYLEPHRINE HCL 20 MG in DEXTROSE 5% 500 ML IV SCH ×2 (13:22→17:32)
--- NOTE | 2021-10-12 13:34 | Procedure Note ---
Procedure Note Date of Service October 12, 2021 Note ARTERIAL LINE PROCEDURE NOTE: Procedure: Arterial Line Placement Attending: Dr. Verenice Keita MD Indication: Monitoring on Pressors Anesthesia: General anesthesia Emergent consent was applied A time-out was completed verifying correct patient, procedure, site, positioning, and implant(s) or special equipment if applicable. Allens test was performed to ensure adequate perfusion. Patients right wrist was prepped and draped in the usual sterile fashion. Ultrasound guidance was used to aid needle placement. A 20g Arrow arterial line was introduced into the right radial artery. Catheter was threaded, and the needle was removed with appropriate pulsatile blood return. Good waveform was observed on the monitor. The patient tolerated the procedure well. Confirmation of placement with ultrasound. Complications: None Blood Loss: Less than 2 cc Coding CPT Codes Tubes, Drains, and Vasc Access - Tubes, Drains, and Vasc Access: [id number] Place Catheter In Artery ([id number]) Tubes, Drains, and Vasc Access - Tubes, Drains, and Vasc Access: [id number] Ultrasound Guidance For Vascular ([id number]) [facility] [place] C[place] (Charges) Tubes, Drains, and Vasc Access Procedure 1: Tubes, Drains, and Vasc Access: [id number] Place Catheter In Artery Procedure 2: Tubes, Drains, and Vasc Access: [id number] Ultrasound Guidance For Vascular
--- NOTE | 2021-10-12 13:35 | Procedure Note ---
Procedure Note Date of Service October 12, 2021 Note Procedure: Inserting ultrasound-guided central gang supervisor pipe lines: Dr. Verenice Keita Indication: Hypotension Consent: Emergent consent was applied Anesthesia: 1% lidocaine without epinephrine local. Procedure: Consent was verified and timeout performed. Appropriate imaging studies were reviewed prior to the procedure. Under aseptic and sterile condition, right femoral vein was accessed under direct ultrasound guidance. Guidewire was confirmed to be within the lumen of vein with the help of ultrasound. Catheter was introduced via Seldinger technique. Guide a wire was removed. Good non-pulsatile blood flow was appreciated from all the ports. The catheter was placed at 24 cm and sutured in place. BioPatch was applied to the catheter and a sterile Tegaderm dressing was applied over the catheter with careful attention to sterility. Patient tolerated the procedure well. Blood loss: Less than 2 cc Complications: None Coding CPT Codes Tubes, Drains, and Vasc Access - Tubes, Drains, and Vasc Access: [id number] Place catheter in vein superior or inferior vena cava ([id number]) Tubes, Drains, and Vasc Access - Tubes, Drains, and Vasc Access: [id number] Ultrasound Guidance For Vascular ([id number]) [facility] [place] Codes (Charges) Tubes, Drains, and Vasc Access Procedure 1: Tubes, Drains, and Vasc Access: [id number] Place catheter in vein superior or inferior vena cava Procedure 2: Tubes, Drains, and Vasc Access: [id number] Ultrasound Guidance For Vascular
[2021-10-12 13:45] LABS: iSTAT Art Bld Gas pCO2 Correct 55 mmHg (35-46); iSTAT Art Bld Gas pH Corrected 7.202 (7.35-7.45); iSTAT Arterial Blood Gas HCO3 22 meg/L (19-24); iSTAT Arterial Blood Gas pCO2 55 mmHg (35-46); iSTAT Arterial Blood Gas pO2 74 mmHg (80-95); iSTAT Arterial Blood Gas pO2 C 75; iSTAT Carbon Dioxide 23 mmol/L (24-31); iSTAT FiO2 100 %; iSTAT Hematocrit 43 % (42-52); iSTAT Hemoglobin 14.6 g/dl (14.0-18.0); iSTAT Potassium 4.2 mmol/L (3.3-5.0); iSTAT Site Art Line; iSTAT Sodium 143 mmol/L (135-144)
--- NOTE | 2021-10-12 13:56 | Pre Anesthesia Assessment ---
Date of Service October 12, 2021 Pre Sedation Assessment Vital Signs Temp Pulse Resp BP Pulse Ox 10/12/21 13:41 24 10/12/21 13:30 98.8 F 59 L 16 94 10/12/21 13:00 98.8 F 61 23 106/65 92 10/12/21 12:30 67 22 91 10/12/21 12:25 70 22 106/78 90 10/12/21 12:21 68 21 109/82 89 L 10/12/21 12:12 70 18 104/77 86 L 10/12/21 12:10 70 20 87/71 L 84 L 10/12/21 12:06 71 19 92/62 L 83 L 10/12/21 12:04 18 10/12/21 12:01 73 19 107/75 88 L 10/12/21 12:00 73 31 H 87 L 10/12/21 11:58 94 H 33 H 88 L 10/12/21 11:57 79 27 H 142/99 H 89 L 10/12/21 11:51 84 31 H 135/92 90 10/12/21 11:47 91 H 28 H 190/114 H 89 L 10/12/21 11:45 94 H 15 87 L 10/12/21 11:41 90 29 H 59/37 L 73 L 10/12/21 11:37 132 H 14 64/49 L 95 10/12/21 11:31 118 H 6 L 62/28 L 95 10/12/21 11:30 64 18 98 10/12/21 11:29 63 3 L 98 10/12/21 11:27 65 15 99 10/12/21 11:18 131 H 25 H 90 10/12/21 11:16 131 H 23 94 10/12/21 11:06 173 H 25 H 110/73 93 10/12/21 11:00 175 H 22 81 L 10/12/21 10:46 177 H 23 87/65 L 10/12/21 10:45 97.9 F 178 H 25 H 74/56 L 97 10/12/21 10:37 177 H 25 H 85/69 L 10/12/21 10:34 176 H 20 10/12/21 10:03 163 H 26 H 81/57 L 97 10/12/21 10:00 163 H 24 80/54 L 100 10/12/21 09:59 163 H 88/59 L 99 10/12/21 09:55 163 H 30 H 98 10/12/21 09:53 163 H 81/69 L 100 10/12/21 09:50 164 H 25 H 89/62 L 100 10/12/21 09:48 164 H 25 H 70/59 L 100 10/12/21 09:47 164 H 23 77/61 L 100 10/12/21 09:44 163 H 22 100 10/12/21 09:41 163 H 22 44/24 L 100 10/12/21 09:40 164 H 20 100 10/12/21 09:38 164 H 17 76/55 L 96 10/12/21 09:36 163 H 20 82/66 L 99 10/12/21 09:32 163 H 20 10/12/21 09:30 164 H 20 10/12/21 09:27 167 H 24 89/76 L 10/12/21 09:25 169 H 20 99/71 L 10/12/21 09:20 171 H 19 10/12/21 09:10 170 H 17 10/12/21 09:00 165 H 18 97/82 L 10/12/21 08:59 164 H 20 10/12/21 08:54 190 H 23 62/43 L 10/12/21 08:50 189 H 24 10/12/21 08:42 189 H 28 H 81/67 L 10/12/21 08:40 193 H 27 H 10/12/21 08:30 97.5 F L 20 Cardiovascular RRR, no murmur, no edema Respiratory Additional Comments: intubated Pre-Sedation Airway Assessment Smoking Status: Former smoker Hx Sleep Apnea: No Hx Difficult Intubation: No Short, Thick Neck: No Thyromental Distance: > or= 3.5 Finger Breadths Oral Cavity: + WNL Mallampati Class: III ASA: ASA4 Procedure Planning Contraindications for Sedation: none Current Medications Reviewed: Yes Notes The planned sedation has been discussed with the patient. Informed Consent was obtained. I have identified the patient, determined the appropriateness of sedation and have assessed the patient immediately prior to the procedure. All medicine(s) and interventions are by my order.
[2021-10-12] MEDS ORDERED: PNEUMOCOCCAL POLYSACCHARIDES 25 MCG/0.5 ML VIAL/SYR IM ONE (14:06)
[2021-10-12] MEDS ORDERED: INFLUENZA VACCINE HIGH DOSE PF 65+ 0.7 ML SYR IM ONE (14:06)
[2021-10-12 15:05] LABS: iSTAT Arterial Blood Gas HCO3 22 meg/L (19-24); iSTAT Arterial Blood Gas pCO2 45 mmHg (35-46); iSTAT Arterial Blood Gas pO2 83 mmHg (80-95); iSTAT Carbon Dioxide 23 mmol/L (24-31)
--- NOTE | 2021-10-12 15:20 | Post Anesthesia Assessment ---
Date of Service October 12, 2021 Post Sedation Assessment Vital Signs Temp Pulse Resp BP Pulse Ox 10/12/21 13:41 24 10/12/21 13:30 98.8 F 59 L 16 94 10/12/21 13:00 98.8 F 61 23 106/65 92 10/12/21 12:30 67 22 91 10/12/21 12:25 70 22 106/78 90 10/12/21 12:21 68 21 109/82 89 L 10/12/21 12:12 70 18 104/77 86 L 10/12/21 12:10 70 20 87/71 L 84 L 10/12/21 12:06 71 19 92/62 L 83 L 10/12/21 12:04 18 10/12/21 12:01 73 19 107/75 88 L 10/12/21 12:00 73 31 H 87 L 10/12/21 11:58 94 H 33 H 88 L 10/12/21 11:57 79 27 H 142/99 H 89 L 10/12/21 11:51 84 31 H 135/92 90 10/12/21 11:47 91 H 28 H 190/114 H 89 L 10/12/21 11:45 94 H 15 87 L 10/12/21 11:41 90 29 H 59/37 L 73 L 10/12/21 11:37 132 H 14 64/49 L 95 10/12/21 11:31 118 H 6 L 62/28 L 95 10/12/21 11:30 64 18 98 10/12/21 11:29 63 3 L 98 10/12/21 11:27 65 15 99 10/12/21 11:18 131 H 25 H 90 10/12/21 11:16 131 H 23 94 10/12/21 11:06 173 H 25 H 110/73 93 10/12/21 11:00 175 H 22 81 L 10/12/21 10:46 177 H 23 87/65 L 10/12/21 10:45 97.9 F 178 H 25 H 74/56 L 97 10/12/21 10:37 177 H 25 H 85/69 L 10/12/21 10:34 176 H 20 10/12/21 10:03 163 H 26 H 81/57 L 97 10/12/21 10:00 163 H 24 80/54 L 100 10/12/21 09:59 163 H 88/59 L 99 10/12/21 09:55 163 H 30 H 98 10/12/21 09:53 163 H 81/69 L 100 10/12/21 09:50 164 H 25 H 89/62 L 100 10/12/21 09:48 164 H 25 H 70/59 L 100 10/12/21 09:47 164 H 23 77/61 L 100 10/12/21 09:44 163 H 22 100 10/12/21 09:41 163 H 22 44/24 L 100 10/12/21 09:40 164 H 20 100 10/12/21 09:38 164 H 17 76/55 L 96 10/12/21 09:36 163 H 20 82/66 L 99 10/12/21 09:32 163 H 20 10/12/21 09:30 164 H 20 10/12/21 09:27 167 H 24 89/76 L 10/12/21 09:25 169 H 20 99/71 L 10/12/21 09:20 171 H 19 10/12/21 09:10 170 H 17 10/12/21 09:00 165 H 18 97/82 L 10/12/21 08:59 164 H 20 10/12/21 08:54 190 H 23 62/43 L 10/12/21 08:50 189 H 24 10/12/21 08:42 189 H 28 H 81/67 L 10/12/21 08:40 193 H 27 H 10/12/21 08:30 97.5 F L 20 Recovery Score Activity: Moves 4 extremities Respiration: Deep Breath/Cough Circulation: +/-20% PreAnes Value Consciousness: Fully Awake Oxygen Saturation: O2 needed for >90% Discharge Sedation Level of Care: Fast Track Phase II Post Sedation Plan On clinical assessment, the patient appears to have tolerated the sedation without complications. Patient is recovering as anticipated. Patient will continue to be monitored by nursing and may be discharged when sedation discharge criteria are met per below protocol. Upon Completions of procedure up to 15 minutes continue every 5 minute vital signs and the P.A.R. score; then discharge to a Phase I or Fast Track to Phase II per the following guidelines: * Discharge Patient to appropriate Phase II area if PAR is 8 or greater or return to pre- procedure baseline. The post - procedure orders will be as directed. * If PAR score is less than 8 or not return to pre-procedure baseline then patient will follow Phase I monitoring till PAR is reached for Phase II. The Phase I may be done in procedure room or may call to secure a Phase I area. * If naloxone or flumazenil are used for reversal, hold in Phase I for continued monitoring from when last reversal dose was given for a minimum of 60 minutes or longer pending the nurse and/or physician discretion of patient condition before discharge to Phase II. Please call the Sedation Physician to re-evaluate and complete post-note for discharge to Phase II area. Do NOT discharge from procedure sedation or Phase 1 until post- sedation evaluation note is complete by procedure /sedation MD Sedation Discharge Instructions to be given to the patient at discharge to home.
--- NOTE | 2021-10-12 15:42 | Cardiac Catheterization ---
[facility] Data: Shank Pinner Cardiac Status Clinical evaluation leading to the procedure CAD Presenation: Non STEMI Diagnostic Physicians Name: Peña Olivarez MD Closure Device Closure Device: Radial Band Recommendations: Medical Therapy and/or Counseling Cardiac Cath Procedure Full Procedure Date October 12, 2021 Pre-Procedure Diagnosis Pre-Procedure Diagnosis: Arrhythmia (VT storm) AUC Score AUC Score: 8 Post-Procedure Diagnosis Post-Procedure Diagnosis: Severe CAD and Elevated Intracardiac Pressures Procedure(s) Performed Procedure(s) Performed: Coronary Angiography, Left Heart Cath, Right Heart Cath and Ultrasound Guided Vascular Access Gas System Operator Peña Olivarez MD Stripper Color(s) Osmar Estimated Blood Loss Estimated Blood Loss: 15 Medication(s) Medication(s): Fentanyl, Heparin, Lidocaine 1%, Nicardipine, Nitroglycerin and Versed Summary of Findings Indication: VT storm, history of coronary disease post remote bare-metal stent to RCA Access: 6 Fr left radial artery. 6 Fr left common femoral vein Catheters: JR4, JL 3.5, JR4 guide, 6 Fr Newborn Findings: LM -normal caliber, no significant disease LAD -medium caliber, proximal luminal irregularities, tapers prior to apex. D2 30% proximal disease. [id number] collaterals via septals. Circumflex -medium caliber, no segment disease, distal AV groove circumflex provides collaterals to right PLB. RCA -dominant, medium caliber, 50% earlymid stenosis, 100% chronic total occl usion after acute marginal before prior stent. Distal vessel/PDA/PLB's partially fills via right to right collaterals. RA 10 RV 39/13 PA 37/18 (26) LVEDP 19 PaSat 61% AoSat 95% Hermilo CO/CI 3.54/1.65 Attempted PCI of RCA [facility] RCA cannulated with JR4 guide Attempts made with private pilot 50 and long whisper wire with Corsair support catheter but unable to pass wire across proximal occlusion into stented segment and procedure aborted. No apparent coronary complications. Arterial Closure: TR Band Summary: 1. Severe single-vessel coronary artery disease -100% chronic total occlusion mid RCA just before previous stent 2. Mildly elevated left and right-sided filling pressures. 3. Borderline pulmonary hypertension 4. Reduced cardiac output Recommendations: No acute disease to explain presenting VT. Continued antiarrhythmics, SCD secondary prevention and ASCVD risk factor modification per Dr. Loving. [facility] intervention to RCA at tertiary center could be considered if symptomatic in the future with imaging confirming viable/ischemic RCA territory. Hemodynamics Rest Ao:: 116/63/83 Final Ao: 122/69/97 LV: 110/19 Recommendations Recommendations: Medical Therapy and/or Counseling Specimens Specimens: None Radiation Exposure (mGy) 2323 Contrast (mls) 80 VISI Anesthesia Moderate 2354-3121 Procedural Complication(s) None Disposition ICU I attest to the content of the Intraoperative Record and any orders documented therein. Any exceptions are noted below. [email or web address] Card Cath Procedure Codes Cardiac Catheterization Procedure 1: Cardiovascular Cath Procedures: 65583 Coronaries & LHC (+/-LV) & RHC Therapeutic Services & Ancillary Proc Procedure 1: Cardiovascular Tx and Anc Procedures: 14987 Ultrasonic Guidance Vascular Access Moderate Sedation Procedure 1: Sedation/Anesthesia: 96959 Mod Sedation by the same physician;Init15 Min Child Age 5 & Up Procedure 2: Sedation/Anesthesia: 64654 Mod Sedation by the same physician; Ea [id number] Minutes PG Care Time/CCT Total # of Minutes Spent Total Time Spent with Patient: Total time spent is greater than 50% in coordination of care (as documented) at patient's floor/unit and/or counseling patient:
[2021-10-12] MEDS: AMIODARONE / D5W 360 MG/200 ML BAG IV SCH (15:44)
[2021-10-12 16:25] LABS: iSTAT Arterial Blood Gas HCO3 24 meg/L (19-24); iSTAT Arterial Blood Gas pCO2 54 mmHg (35-46); iSTAT Arterial Blood Gas pH 7.26 (7.35-7.45); iSTAT Arterial Blood Gas pO2 37 mmHg (80-95); iSTAT Carbon Dioxide 26 mmol/L (24-31)
[2021-10-12] MEDS ORDERED: PROPOFOL BOLUS FROM BAG IV PRN (16:30)
[2021-10-12 16:43] LABS: Appearance Urine Cloudy (Clear); Bacteria Urine Automated Negative (Negative); Blood Urine 3+ (Negative); Color Urine Dark Yellow; Epithelial Cell Urine Auto >30 /lpf (0-5); Glucose Urine UA Negative (Negative); Ketones Urine Trace (Negative); Leukocyte Esterase Urine Trace (Negative); Nitrite Urine Negative (Negative); Protein Urine 3+ (Negative); Specific Gravity Urine 1.031 (1.000-1.030); Urobilinogen Urine Negative (Negative); WBC Urine Automated >30 /hpf (0-5)
[2021-10-12 16:45] LABS: Bilirubin Urine 1+ (Negative)
[2021-10-12 16:58] LABS: Calcium Oxalate Crystals Urine Present (None Prsent)
--- NOTE | 2021-10-12 17:00 | Cardiology Consultation ---
Date of Consultation October 12, 2021 Assessment & Plan (1) Ventricular tachycardia: (2) CAD (coronary artery disease): (3) Ischemic cardiomyopathy: 1. Sustained ventricular tachycardia: He presents with a prolonged episode of sustained ventricular tachycardia, lasting at least 12 hours in duration. Despite that and the rate of close to 200 bpm he had minimal enzyme elevation on presentation and was hemodynamically relatively stable. The morphology of the tachycardia suggests an inferior scar related origin. Despite tolerating it well I believe he should have an ICD. I do not know how often he is going to have ventricular tachycardia but he should have an ICD in place, if he has frequent episodes he would probably be a good ablation candidate but I would not do that as primary treatment. I do not know if he needs long-term antiarrhythmic therapy but I would certainly continue amiodarone now (he has elevated liver function tests but that is probably not due to the amiodarone). His arrhythmia seems very resistant to termination and therefore I would be reluctant to stop amiodarone at this time. Once he is stabilized we should consider ICD implantation. 2. Coronary disease: He has coronary disease however he has a chronic total occlusion of his right coronary artery and his ejection fraction has not suffered from this event. This is not indicative of an acute ischemic event. 3. Ischemic cardiomyopathy: He has a longstanding relatively mild ischemic cardiomyopathy, surprisingly despite the duration and rate of this arrhythmia he does not seem to have suffered much worsening of his left ventricular function and had very little enzyme release, presumably because he is good coronary perfusion otherwise. He does not meet criteria for ICD implantation for primary prevention of sudden cardiac however he clearly meets criteria for ICD implantation for secondary prevention. History of Present Illness Reason for Consultation: Sustained ventricular tachycardia Attending Physician: Marybeth Zhou MD History of Present Illness This is a 66-year-old male with a history of myocardial infarction in 1998 and stent placement to the right coronary artery. He has a ischemic cardiomyopathy with ejection fraction 45 to 50% on echo February 06, 2021. He was in his usual state of health and was out for a walk on the evening of October 11, 2021 when he suddenly felt something in his chest and felt that his heart rate was rapid and he checked his pulse and noted to be in the 190s. He stayed at home overnight and when it continued throughout the night he came to the emergency room on the morning of October 12, 2021. In the emergency room he was noted to be in a wide- complex tachycardia, he was given adenosine with no change in the rhythm and electrical cardioversion was attempted with no change in the rhythm. He received intravenous amiodarone and fluids for hypotension, he was also given intravenous lidocaine and he had brief loss of consciousness and he was intubated. During intubation he converted to sinus rhythm, was hypotensive and received brief CPR and pressors. He responded to this treatment hemodynamically although remains on pressors and remains intubated and sedated. His initial electrocardiogram done October 12, 2021 at 8:38 AM shows a wide- complex tachycardia with a left bundle type pattern and left axis deviation, suggestive of an inferior origin. It is almost certainly ventricular tachycardia although I do not identify atrial activity to determine whether he has A-V dissociation. Another electrocardiogram is similar however by October 12, 2021 at 11:10 AM another electrocardiogram shows a wide-complex rhythm at 160 bpm with a normal axis and relatively normal precordial progression and could represent sinus tachycardia with a widened complex. Following termination of the arrhythmia on October 12, 2021 at 1323 and electrocardiogram shows sinus bradycardia at [address]-T abnormalities. An echocardiogram done on October 12, 2021 at 1300 demonstrates mildly reduced left ventricular systolic function with an ejection fraction of 45 to 50% and mild concentric left ventricular hypertrophy. He does have inferior akinesis. He underwent cardiac catheterization on October 12, 2021 at around 1500 and had severe single-vessel coronary disease with a chronic total occlusion of the right coronary artery. Troponin measurements were not terribly abnormal, on presentation his troponin was 0.18, at 1600 after all of the above events his troponin was only 0.98. Allergies Allergy/AdvReac Type Severity Reaction Status Date / Time No Known Allergies Allergy Unverified 10/12/21 09:13 Home Medications Medication Instructions Recorded Confirmed Type aspirin 81 mg tablet,delayed 81 mg PO DAILY #0 01/26/17 10/12/21 History release (Aspirin Low Dose) atorvastatin 80 mg tablet 80 mg PO DAILY #0 tab 01/26/17 10/12/21 History carvedilol 6.25 mg tablet 6.25 mg PO BID #0 tab 01/26/17 10/12/21 History enalapril maleate 2.5 mg tablet 2.5 mg PO HS #0 tab 01/26/17 10/12/21 History ezetimibe 10 mg tablet 10 mg PO DAILY 10/12/21 10/12/21 History nitroglycerin 0.4 mg sublingual 0.4 mg SUBLINGUAL DIRECTED PRN 10/12/21 10/12/21 History tablet Patient History Medical History CAD (coronary artery disease) Chronic HFrEF (heart failure with reduced ejection fraction) COPD (chronic obstructive pulmonary disease) HLD (hyperlipidemia) Hx of myocardial infarction Hx of supraventricular tachycardia Hypertension Ischemic cardiomyopathy PAD (peripheral artery disease) Surgical History History of angioplasty of peripheral vessel PCI x 3 to Right Iliac 03/29/2014 History of heart artery stent 1999 BMS to RCA Family History Mother Stroke Social History Smoking Status: Former smoker Smoking End Date: 05/2012; Hx Alcohol Use: Yes (no ETOH in 25yrs) Hx Substance Use: No Preferred Language: [place] marital status: Current Living Situation: Significant Other Current Living Situation Comment: Lives with and mother who is 93, he is caregiver Feels Safe at Home: Yes Assistive Devices Comment: unknown Review of Systems Review of Systems: Unobtainable due to endotracheal tube Physical Exam Physical Exam: Constitutional: He is sedated, and has an endotracheal tube in place HEENT: Unremarkable except for intubation Neck: No jugular venous distention, carotid pulses are normal and equal bilaterally without bruits. Pulmonary: Clear to auscultation bilaterally. Cardiac: Regular rhythm with no murmur, gallop or rub. Abdomen: Soft, nontender with normal bowel sounds. Extremities: No edema. Distal pulses intact. Neurologic: No focal findings on a very limited exam Skin: No rash, ecchymoses or petechiae. Results & Data ([facility]) Vital Signs (Past 12 Hours) Vital Signs Temp Pulse Resp BP Pulse Ox 10/12/21 16:00 36.9 C 55 L 25 H 98 10/12/21 15:31 56 L 25 H 100 10/12/21 15:22 24 10/12/21 13:41 24 10/12/21 13:30 37.1 C 59 L 16 94 10/12/21 13:00 37.1 C 61 23 106/65 92 10/12/21 12:30 67 22 91 10/12/21 12:25 70 22 106/78 90 10/12/21 12:21 68 21 109/82 89 L 10/12/21 12:12 70 18 104/77 86 L 10/12/21 12:10 70 20 87/71 L 84 L 10/12/21 12:06 71 19 92/62 L 83 L 10/12/21 12:04 18 10/12/21 12:01 73 19 107/75 88 L 10/12/21 12:00 73 31 H 87 L 10/12/21 11:58 94 H 33 H 88 L 10/12/21 11:57 79 27 H 142/99 H 89 L 10/12/21 11:51 84 31 H 135/92 90 10/12/21 11:47 91 H 28 H 190/114 H 89 L 10/12/21 11:45 94 H 15 87 L 10/12/21 11:41 90 29 H 59/37 L 73 L 10/12/21 11:37 132 H 14 64/49 L 95 10/12/21 11:31 118 H 6 L 62/28 L 95 10/12/21 11:30 64 18 98 10/12/21 11:29 63 3 L 98 10/12/21 11:27 65 15 99 10/12/21 11:18 131 H 25 H 90 10/12/21 11:16 131 H 23 94 10/12/21 11:06 173 H 25 H 110/73 93 10/12/21 11:00 175 H 22 81 L 10/12/21 10:46 177 H 23 87/65 L 10/12/21 10:45 36.6 C 178 H 25 H 74/56 L 97 10/12/21 10:37 177 H 25 H 85/69 L 10/12/21 10:34 176 H 20 10/12/21 10:03 163 H 26 H 81/57 L 97 10/12/21 10:00 163 H 24 80/54 L 100 10/12/21 09:59 163 H 88/59 L 99 10/12/21 09:55 163 H 30 H 98 10/12/21 09:53 163 H 81/69 L 100 10/12/21 09:50 164 H 25 H 89/62 L 100 10/12/21 09:48 164 H 25 H 70/59 L 100 10/12/21 09:47 164 H 23 77/61 L 100 10/12/21 09:44 163 H 22 100 10/12/21 09:41 163 H 22 44/24 L 100 10/12/21 09:40 164 H 20 100 10/12/21 09:38 164 H 17 76/55 L 96 10/12/21 09:36 163 H 20 82/66 L 99 10/12/21 09:32 163 H 20 10/12/21 09:30 164 H 20 10/12/21 09:27 167 H 24 89/76 L 10/12/21 09:25 169 H 20 99/71 L 10/12/21 09:20 171 H 19 10/12/21 09:10 170 H 17 10/12/21 09:00 165 H 18 97/82 L 10/12/21 08:59 164 H 20 10/12/21 08:54 190 H 23 62/43 L 10/12/21 08:50 189 H 24 10/12/21 08:42 189 H 28 H 81/67 L 10/12/21 08:40 193 H 27 H 10/12/21 08:30 36.4 C L 20 Laboratory Results Cardiac Enzymes 10/12/21 10/12/21 Range/Units 08:42 16:07 AST 84 H (13-39) U/L Troponin I 0.18 H* 0.98 H* (0-0.04) ng/ml CBC 10/12/21 Range/Units 08:42 WBC 32.68 H* (4.8-10.8) K/uL RBC 5.04 (4.7-6.1) M/uL Hgb 16.5 (14.0-18.0) g/dL Hct 47.6 (42-52) % Plt Count 277 (130-400) K/uL Neut # (Auto) 25.48 H (1.4-6.5) K/uL Lymph # (Auto) 3.50 H (1.2-3.4) K/uL [place] # (Auto) 3.51 H (0.11-0.59) K/uL Eos # (Auto) 0.02 (0-0.5) K/uL Baso # (Auto) 0.05 (0-0.2) K/uL Comprehensive Metabolic Panel 10/12/21 Range/Units 08:42 Sodium 144 (136-145) mmol/L Potassium 4.6 (3.5-5.1) mmol/L Chloride 104 (98-107) mmol/L Carbon Dioxide 24 (21-32) mmol/L BUN 24 H (6-23) mg/dl Creatinine 2.60 H (0.6-1.4) mg/dl Glucose 217 H (70-99(Fasting)) mg/dl Calcium 9.7 (8.5-10.1) mg/dl AST 84 H (13-39) U/L ALT 132 H (7-52) U/L Alkaline Phosphatase 108 H (34-104) U/L Total Protein 7.2 (6.0-8.3) gm/dl Albumin 4.4 (3.4-5.0) gm/dl Intake and Output 10/12/21 10/12/21 10/12/21 06:59 14:59 22:59 Intake Total 2891.818 / 3209.376 317.558 / 3209.376 Output Total 100 / 100 Balance 2891.818 / 3109.376 217.558 / 3109.376 Intake: IV 1891.818 / 2209.376 317.558 / 2209.376 Amiodarone / D5w 150 mg In 100 100 / 100 ml @ 600 mls/hr IV NOW STA Rx#: [id number] Amiodarone / D5w 360 mg In 200 129.315 / 200.000 70.685 / 200.000 ml @ 33.333 mls/hr IV ONE ONE Rx#:[id number] Norepinephrine/D5w 8 mg In 508 158.753 / 290.626 131.873 / 290.626 ml @ 0.18 MCG/KG/MIN 60.35 mls/ hr IV .Q8H26M [facility] Rx#:[id number] Piperacillin/Tazobactam 3.375 115 / 115 gm In Dextrose 5% 100 ml @ 230 mls/hr IV NOW ONE Rx#:[id number] Sodium Chloride 0.9% 1000ML 1, 1000 / 1000 000 ml @ 999 mls/hr IV .Q1H1M ONE Rx#:[id number] Sodium Chloride 0.9% 500 ml @ 500 / 500 999 mls/hr IV .Q31M ST[facility] Rx#: [id number] fentaNYL citrate 2,500 mcg In 3.750 / 3.750 250 ml @ 100 MCG/HR 10 mls/hr IV .Q25H [facility] Rx#:[id number] Oral 0 / 0 Other 1000 / 1000 Output: Urine Amount (Catheter) 100 / 100 Alfaro/Indwelling 100 / 100 Other: Other Intake Source IV bolus Weight 88 kg Weight Measurement Method Built in [facility] Patient Weight 10/13/21 06:59 Weight 88 kg PG Care Time/CCT Total # of Minutes Spent Total Time Spent with Patient: Total time spent is greater than 50% in coordination of care (as documented) at patient's floor/unit and/or counseling patient: Coding Level of Care Code 57783 Initial Inpt Care Lvl 3 Diagnoses Ventricular tachycardia I47.2 CAD (coronary artery disease) I25.10 Coronary Disease-Associated Artery/Lesion type: [place] artery [place] vs. transplanted heart: [place] heart Associated angina: without angina Ischemic cardiomyopathy I25.5 (1) CAD (coronary artery disease) Coronary Disease-Associated Artery/Lesion type: [place] artery [place] vs. transplanted heart: [place] heart Associated angina: without angina Qualified Code(s): I25.10 - Atherosclerotic heart disease of [place] coronary artery without angina pectoris
[2021-10-12 17:06] LABS: Amphetamines+Metham, Urine Neg (Neg); Barbiturates, Urine Neg (Neg); Benzodiazepine, Urine Pos (Neg); Cocaine, Urine Neg (Neg); MDMA (Ecstacy), Urine Neg (Neg); Methadone, Urine Neg (Neg); Opiate, Urine Neg (Neg); Phencyclidine, Urine Neg (Neg)
[2021-10-12] MEDS: VASOPRESSIN 20 UNITS in 0.9 % SODIUM CHLORIDE 100 ML IV SCH (17:32)
[2021-10-12] MEDS: PIPERACILLIN/TAZOBACTAM 3.375 GM in DEXTROSE 5% 100 ML IV SCH (17:32)
[2021-10-12] MEDS: propofoL 1,000 MG/100 ML VIAL IV SCH (17:34)
[2021-10-12] MEDS ORDERED: PHARMACY GLYCEMIC MGMT CONSULT PRN (20:21)
[2021-10-12] MEDS ORDERED: INSULIN GLARGINE SOLOSTAR 100 UNITS/ML 3 ML PEN SC ONE (20:45)
--- NOTE | 2021-10-12 21:02 | Pharmacy Report ---
Pharmacy Glycemic Short Note 2 - Date of Service October 12, 2021 - Glycemic Short BSG Results (Last 24 hours): 10/12/21 10/12/21 10/12/21 08:42 16:13 20:11 Glucose 217 H POC Glucose (other) 243 H 229 H OUTPATIENT ANTIDIABETIC REGIMEN: * None * HbA1c ordered for tomorrow ASSESSMENT: * Pharmacy automatically consulted per ICU hyperglycemic protocol * Will give low-dose Lantus x1 * Will initiate weight-based moderate stress Novolog q4h PLAN FOR INPATIENT GLYCEMIC CONTROL: * Basal insulin * Lantus 10 units SQ x1 * Bolus insulin * NovoLog per scale ACHS or Q6hrs while NPO * Goal Range: 120-160 mg/dL * Correction Factor: 25 mg/dL/unit * Nutritional / Prandial insulin per carb ratio of 1 unit per 9 grams CHO consumed
[2021-10-12] MEDS: INSULIN ASPART PER UNIT SC SCH (21:05)
[2021-10-12] MEDS ORDERED: MIDAZOLAM HCL 1 MG/ML 2ML VIAL IV ONE (21:14)
[2021-10-12] MEDS ORDERED: ETOMIDATE 2 MG/ML 20 ML VIAL IV ONE (21:14)
[2021-10-12] MEDS ORDERED: SUCCINYLCHOLINE CHLORIDE 20 MG/ML 10 ML VIAL IV ONE (21:14)
[2021-10-13] MEDS: VASOPRESSIN 20 UNITS in 0.9 % SODIUM CHLORIDE 100 ML IV SCH ×2 (00:01→09:10)
[2021-10-13] MEDS: propofoL 1,000 MG/100 ML VIAL IV SCH (00:40)
[2021-10-13] MEDS: INSULIN ASPART PER UNIT SC SCH ×7 (00:54→23:35)
[2021-10-13] MEDS: PIPERACILLIN/TAZOBACTAM 3.375 GM in DEXTROSE 5% 100 ML IV SCH ×3 (02:00→17:23)
[2021-10-13] MEDS: PHENYLEPHRINE HCL 20 MG in DEXTROSE 5% 500 ML IV SCH ×2 (02:01→09:10)
[2021-10-13] MEDS: AMIODARONE / D5W 360 MG/200 ML BAG IV SCH ×3 (02:01→22:40)
[2021-10-13] MEDS: Standard Conc 16mcg/mL; 8mg in 500mL IV SCH (04:05)
[2021-10-13 04:07] LABS: iSTAT Art Bld Gas pCO2 Correct 44 mmHg (35-46); iSTAT Art Bld Gas pH Corrected 7.375 (7.35-7.45); iSTAT Arterial Blood Gas HCO3 25 meg/L (19-24); iSTAT Arterial Blood Gas pCO2 43 mmHg (35-46); iSTAT Arterial Blood Gas pH 7.38 (7.35-7.45); iSTAT Arterial Blood Gas pO2 92 mmHg (80-95); iSTAT Arterial Blood Gas pO2 C 94; iSTAT Carbon Dioxide 27 mmol/L (24-31); iSTAT FiO2 60 %; iSTAT Hematocrit 39 % (42-52); iSTAT Hemoglobin 13.3 g/dl (14.0-18.0); iSTAT Potassium 3.9 mmol/L (3.3-5.0); iSTAT Site Art Line; iSTAT Sodium 140 mmol/L (135-144)
[2021-10-13 05:03] LABS: Basophils # (auto) 0.02 K/uL (0-0.2); Basophils % (auto) 0.1 %; Hematocrit (blood only) 40.6 % (42-52); Hemoglobin 13.9 g/dL (14.0-18.0); Immature Granulocytes # (auto) 0.07 K/uL (0.00-0.02); Immature Granulocytes % (auto) 0.3 %; Lymphocytes # (auto) 3.43 K/uL (1.2-3.4); Lymphocytes % (auto) 16.1 %; Mean Corpuscular Hemoglobin 31.9 pg (25-34); Mean Corpuscular Hgb Conc 34.2 g/dL (32-36); Mean Corpuscular Volume 93.1 fL (80-100); Mean Platelet Volume 10.1 fL (7.4-10.4); Monocytes # (auto) 2.58 K/uL (0.11-0.59); Monocytes % (auto) 12.1 %; Neutrophils # (auto) 15.21 K/uL (1.4-6.5); Neutrophils % (auto) 71.4 %; Platelet Count 201 K/uL (130-400); RDW Coefficient of Variation 13.1 % (11.5-14.5); RDW Standard Deviation 45.3 fL (36.4-46.3); Red Blood Count 4.36 M/uL (4.7-6.1); White Blood Count 21.31 K/uL (4.8-10.8)
[2021-10-13 05:26] LABS: BUN Creatinine Ratio 20.3 (10-20); Calcium 7.7 mg/dl (8.5-10.1); Est GFR (African American) 67.1 ml/min; Est GFR (Non-African American) 57.9 ml/min; Phosphorus 3.2 mg/dl (2.5-4.9)
[2021-10-13 05:37] LABS: iSTAT Art Bld Gas pCO2 Correct 39 mmHg (35-46); iSTAT Art Bld Gas pH Corrected 7.414 (7.35-7.45); iSTAT Arterial Blood Gas HCO3 25 meg/L (19-24); iSTAT Arterial Blood Gas pCO2 39 mmHg (35-46); iSTAT Arterial Blood Gas pH 7.42 (7.35-7.45); iSTAT Arterial Blood Gas pO2 75 mmHg (80-95); iSTAT Arterial Blood Gas pO2 C 77; iSTAT Carbon Dioxide 26 mmol/L (24-31); iSTAT Hematocrit 38 % (42-52); iSTAT Hemoglobin 12.9 g/dl (14.0-18.0); iSTAT Site Art Line; iSTAT Sodium 141 mmol/L (135-144)
[2021-10-13 07:18] LABS: Estimated Average Glucose 134 mg/dl; Hemoglobin A1C 6.3 % (4.5-5.6)
--- NOTE | 2021-10-13 07:50 | Critical Care Progress Note ---
Date of Service October 13, 2021 Assessment & Plan (1) Ventricular tachycardia, incessant: (2) Cardiac arrest: (3) Lactic acidosis: (4) Elevated troponin: (5) Transaminitis: (6) CATARINO (acute kidney injury): Plan: ICU CONSULT NOTE FORMAT: Reason Critically Ill: 66-year-old male with past medical history of coronary artery disease s/p RCA stent 1998, systolic CHF, peripheral vascular disease, COPD presented to the hospital with complaints of shortness of breath. Patient was found to be in V. tach. Did not respond to amiodarone and cardioversion. He was sent to the ICU to manage for V. tach storm. Had cardiac arrest on 10/12/2021, was following commands following that Neuro - Sedation: Propofol Anesthesia: Fentanyl Cardiac - --V. tach storm On amiodarone drip Patient got 1 dose of 100 mg lidocaine EP and cardiology on board --Cardiac arrest with cardiogenic shock PEA, status post excessive resuscitation 10/12/21 Trend troponin S/p cardiac cath 10/12/2021, 100% occlusion of RCA. No intervention done. Continue with vasopressors to keep MAP greater than 65 --Elevated troponin Likely from type II FL Continue to trend Respiratory - -- VDRF Likely secondary to cardiac arrest with pulmonary edema Continue with ventilatory support Keep RASS -1 Daily sedation holidays and SBT's Chlorhexidine mouthwash GI - --Transaminitis Likely from cardiogenic shock Continue to monitor RENAL/LYTES - --CATARINO on CKD Improving Monitor BUNs/creatinine Avoid nephrotoxic medication - No acute issues ENDO - Continue with ICU hypoglycemia protocol HEME - --Leukocytosis Trending down Likely reactive to patient's current condition Nasal MRSA negative Patient did get a dose of antibiotics in the ED ID - Procalcitonin 0.4 Leukocytosis is likely reactive Continue to monitor --Prophylaxis VTE:Heparin GI: Protonix Lines: Right femoral, right radial, positive Alfaro Diet: N.p.o. Plan: In/out: +3.6 L, urine output 1150 AB.42/39/75 on pressure support 5/5 40% Trial of extubation today. Continue with amiodarone drip for the time being Continue with Zosyn for at least 48 hours. Try to titrate off vasopressors I have personally spent 38 minutes of critical care time in the direct management of this patient. This is a life/limb threatening event. This includes time spent evaluating patient, direct bedside care, chart review, placing orders, interpretation of diagnostic studies, discussion with consultants, patient, and family members, as well as other required patient management activities. This time is exclusive of all separately billable procedures, and teaching time and separate from and in addition to any other critical care service time. Admission and Anticipated Discharge Date Admission Date: October 12, 2021 Subjective Patient seen and examined at bedside. No acute distress Patient was on low-dose propofol, Levophed 0.02 He was on pressure support. Getting good tidal volume. He was following commands. Denied any headache, no chest pain Review of Systems Review of Systems: All systems reviewed & are unremarkable except as noted in Subjective Physical Exam Physical Exam: Constitutional: No acute distress HEENT: EOMI, PERRLA Respiratory system: Decreased air entry bilaterally, no wheeze, rhonchi, positive crackles bilaterally CVS: S1-S2 positive, no murmurs or gallops Abdomen: Soft, nontender, nondistended, positive bowel sounds x4 Extremities: +2 pulses bilaterally radialis/ dorsalis pedis, no cyanosis, no edema Neuro: Intubated, following commands Psych: Normal mood and affect G/U: Positive Alfaro Skin: no rashes, warm and dry Lymphatic: no cervical or axillary lymphadenopathy Results & Data Results & Data ([facility]) Vital Signs (Past 12 Hours) Vital Signs Temp Pulse Resp Pulse Ox 10/13/21 06:00 37.7 C H 58 L 13 93 10/13/21 05:00 37.4 C 57 L 12 96 10/13/21 04:50 62 12 97 10/13/21 04:32 58 L 24 99 10/13/21 04:10 98 10/13/21 04:00 37.3 C 61 24 100 10/13/21 03:00 37.2 C 66 22 100 10/13/21 02:00 37.2 C 56 L 24 99 10/13/21 01:00 37.2 C 58 L 24 98 10/13/21 00:00 37.3 C 53 L 24 98 10/12/21 23:35 54 L 10/12/21 23:18 52 L 24 99 10/12/21 23:00 37.3 C 63 24 99 10/12/21 22:00 37.2 C 51 L 24 100 10/12/21 21:00 37.3 C 50 L 24 100 10/12/21 20:00 37.2 C 53 L 24 99 Laboratory Results 10/13/21 04:51 10/13/21 04:51 Coding Level of Care Code Critical Care 1st 30-74 mins Diagnoses Ventricular tachycardia, incessant I47.2 Cardiac arrest I46.9 Lactic acidosis E87.2 Elevated troponin R77.8 Transaminitis R74.01 CATARINO (acute kidney injury) N17.9 Time Spent (min) 38
[2021-10-13] MEDS ORDERED: ATORVASTATIN 40 MG TAB PO SCH (09:00)
[2021-10-13] MEDS ORDERED: ASPIRIN 81 MG ECTAB PO SCH (09:00)
[2021-10-13] MEDS ORDERED: EZETIMIBE 10 MG TABLET PO SCH (09:00)
[2021-10-13] MEDS: HEPARIN SOD 5,000 UNIT/0.5 ML VIAL SQ SCH ×2 (09:18→21:11)
[2021-10-13] MEDS ORDERED: PANTOprazole 40 MG in SYRINGE 0 ML IV SCH (11:00)
[2021-10-13] MEDS ORDERED: GLUCAGON FOR INJ 1 MG VIAL IM PRN (12:30)
[2021-10-13] MEDS ORDERED: GLUCOSE 40% GEL 15 GM TUBE PO PRN (12:30)
[2021-10-13] MEDS ORDERED: CARBOHYDRATES FOR HYPOGLYCEMIA PO PRN (12:30)
[2021-10-13] MEDS ORDERED: GLUCOSE 10 TABS/TUBE PO PRN (12:30)
[2021-10-13] MEDS ORDERED: DEXTROSE 50% 50 ML SYRINGE IV PRN (12:30)
--- NOTE | 2021-10-13 13:02 | Cardiology Progress Note ---
Date of Service October 13, 2021 Assessment & Plan (1) Ventricular tachycardia, incessant: (2) CAD (coronary artery disease): (3) Hx of supraventricular tachycardia: (4) Hypertension: Plan: no further events extubated this AM clinically appears remarkably well will cont iv amio for now, will likely change to po in AM of 10/14 will start low dose metoprolol once tolerating po our EP colleagues will determine timing of ICD placement Admission and Anticipated Discharge Date Admission Date: October 12, 2021 Subjective Pt seen and examined, chart reviewed. Currently looks terrific. Upright and conversant in bed s/p extubation. Only complaint is that of dry mouth. Denies cp, sob, palpitations, lightheadedness or dizziness. tele reviewed: sinus rhythm without recurrent arrhythmia Review of Systems Review of Systems: All systems reviewed & are unremarkable except as noted in HPI & below Physical Exam Physical Exam: General: Awake, alert and oriented x 3. No acute distress. HEENT: Normocephalic, atraumatic. Pupils equal, round and reactive to light and accommodation. Extraocular muscles are intact. Anicteric sclera. Moist mucous membranes. Neck: No JVD. No bruit. Cardiovascular: Regular. Positive S-4. Normal S-1 and S-2. No S-3. No murmurs or rubs. Pulmonary: Clear to auscultation B/L. No rales, rhonchi or wheezing Abdomen: Bowel sounds x 4, soft. No rebound, guarding or tenderness. No organomegaly. Extremities: No clubbing, cyanosis or edema. +2 pedal pulses bilaterally. Skin: Warm and dry. Results & Data ([facility]) Vital Signs (Past 12 Hours) Vital Signs Temp Pulse Resp Pulse Ox 10/13/21 12:00 37.9 C H 64 19 93 10/13/21 11:00 37.8 C H 72 17 96 10/13/21 10:15 37.7 C H 65 17 95 10/13/21 10:00 37.7 C H 62 16 93 10/13/21 09:45 37.7 C H 68 21 92 10/13/21 09:30 37.6 C H 62 18 93 10/13/21 09:15 37.6 C H 63 17 95 10/13/21 09:00 37.6 C H 61 16 93 10/13/21 08:45 37.7 C H 60 17 93 10/13/21 08:30 37.8 C H 61 17 93 10/13/21 08:15 37.8 C H 62 17 93 10/13/21 08:00 37.8 C H 65 19 93 10/13/21 07:43 71 17 94 10/13/21 07:40 63 10/13/21 07:30 71 17 94 10/13/21 07:00 37.7 C H 64 14 94 10/13/21 06:00 37.7 C H 58 L 13 93 10/13/21 05:00 37.4 C 57 L 12 96 10/13/21 04:50 62 12 97 10/13/21 04:32 58 L 24 99 10/13/21 04:10 98 10/13/21 04:00 37.3 C 61 24 100 10/13/21 03:00 37.2 C 66 22 100 10/13/21 02:00 37.2 C 56 L 24 99 10/13/21 01:00 37.2 C 58 L 24 98 (1) CAD (coronary artery disease) Coronary Disease-Associated Artery/Lesion type: [place] artery [place] vs. transplanted heart: [place] heart Associated angina: without angina Qualified Code(s): I25.10 - Atherosclerotic heart disease of [place] coronary artery without angina pectoris
[2021-10-13] MEDS: METOPROLOL TARTRATE 25 MG TAB PO SCH ×3 (13:25→23:11)
--- NOTE | 2021-10-13 13:32 | Pharmacy Report ---
Pharmacy Glycemic Short Note 2 - Date of Service October 13, 2021 - Glycemic Short BSG Results (Last 24 hours): 10/12/21 10/12/21 10/13/21 16:13 20:11 00:15 Glucose POC Glucose POC Glucose (other) 243 H 229 H 195 H 10/13/21 10/13/21 10/13/21 04:00 04:51 07:51 Glucose 157 H POC Glucose 104 H POC Glucose (other) 168 H 10/13/21 10:58 Glucose POC Glucose 102 H POC Glucose (other) OUTPATIENT ANTIDIABETIC REGIMEN: * None * HbA1c = 6.3% (10/13/21) ASSESSMENT: 10/13: * Patient extubated this morning. Off all pressors at this time. * Fasting BSG well controlled at 104 mg/dL this AM. * No further basal insulin will be administered. * Continue q4h Novolog for now while patient is NPO. 10/12: * Pharmacy automatically consulted per ICU hyperglycemic protocol * Will give low-dose Lantus x1 * Will initiate weight-based moderate stress Novolog q4h PLAN FOR INPATIENT GLYCEMIC CONTROL: * Basal insulin * None * Bolus insulin * NovoLog per scale q4h while NPO * Goal Range: 120-160 mg/dL * Correction Factor: 25 mg/dL/unit * Nutritional / Prandial insulin per carb ratio of 1 unit per 9 grams CHO consumed
[2021-10-13] MEDS ORDERED: CALCIUM GLUCONATE 10% 1,000 MG in SODIUM CHLORIDE 0.9% 50 ML IV ONE (14:15)
[2021-10-13] MEDS ORDERED: CALCIUM GLUCONATE 10% 1,000 MG in DEXTROSE 5% 50 ML IV ONE (14:30)
--- NOTE | 2021-10-13 16:52 | Hospitalist Progress Note ---
Date of Service October 13, 2021 Assessment & Plan (1) Ventricular tachycardia, incessant: (2) CATARINO (acute kidney injury): (3) Transaminitis: (4) Elevated troponin: (5) Pneumonia: (6) COPD without exacerbation: Plan: This is a 66-year-old male who has significant past medical history of CAD with history of LA 1999 status post BMS to RCA, history of ischemic cardiomyopathy, chronic HFrEF, history of SVT, HTN, HLD, history of PAD with angioplasty, COPD, former tobacco and alcohol user who presents to ED after complaining of shortness of breath and palpitations for 12 hours. Incessant ventricular tachycardia Cardiogenic shock PEA Cardiac Arrest Elevated troponin He was found with sustained V-tach that did not respond to amiodarone In the ICU He was code and intubated on vent support yesterday He was ROSC and he was placed on pressor S/P extubating today and off pressor Continue IV amiodarone as per cardiology, plan to transition to PO in am Will need to assess for ICD placement Continue monitor closely CATARINO Creatinine on admission 2.6 received IV, creatinine improve to 1.2 Continue monitor BMP Leukocytosis Lactic acidosis Possible pneumonia CXR showed Airspace opacities are noted at the left lung base. Continue IV Zosyn for now WBC trending down from 32K to 21K Blood cx no growth and procalcitonin negative FULL CODE DVT px on heparin subq Disposition Continue monitor in the ICU Admission and Anticipated Discharge Date Admission Date: October 12, 2021 Subjective Pt was seen and examined for follow up of VT and cardiac arrest He was found with sustained V-tach that did not respond to amiodarone In the ICU He was code and intubated on vent support yesterday He was ROSC and he was placed on pressor Today he was extubated and follow commands Denies any chest pain, palpitation, dizziness and SOB Review of Systems Review of Systems: All systems reviewed & are unremarkable except as noted in Subjective Physical Exam Physical Exam: General- No acute distress Head- atraumatic Eyes- PERRL, EOMI, ENT- oropharynx clear Neck- supple, no JVD Lungs- decrease breath sound Heart- regular rhythm; no murmur Abdomen- normal bowel sounds, soft, nontender Extremities- no calf tenderness Neuro- alert, oriented x 3; PERRL, EOMI; no facial palsy; no dysarthria Skin- warm & dry Results & Data Results & Data ([facility]) Vital Signs (Past 12 Hours) Vital Signs Temp Pulse Resp Pulse Ox 10/13/21 15:00 38.0 C H 64 14 95 10/13/21 14:00 38.0 C H 65 10 L 93 10/13/21 13:00 37.9 C H 64 16 92 10/13/21 12:00 37.9 C H 64 19 93 10/13/21 11:00 37.8 C H 72 17 96 10/13/21 10:15 37.7 C H 65 17 95 10/13/21 10:00 37.7 C H 62 16 93 10/13/21 09:45 37.7 C H 68 21 92 10/13/21 09:30 37.6 C H 62 18 93 10/13/21 09:15 37.6 C H 63 17 95 10/13/21 09:00 37.6 C H 61 16 93 10/13/21 08:45 37.7 C H 60 17 93 10/13/21 08:30 37.8 C H 61 17 93 10/13/21 08:15 37.8 C H 62 17 93 10/13/21 08:00 37.8 C H 65 19 93 10/13/21 07:43 71 17 94 10/13/21 07:40 63 10/13/21 07:30 71 17 94 10/13/21 07:00 37.7 C H 64 14 94 10/13/21 06:00 37.7 C H 58 L 13 93 10/13/21 05:00 37.4 C 57 L 12 96 10/13/21 04:50 62 12 97
[2021-10-13] MEDS ORDERED: SODIUM CHLORIDE 0.9% INJ 10 ML VIAL IV ONE (21:12)
[2021-10-13] MEDS ORDERED: MAG SULFATE 50% 1GM/2ML VIAL IV ONE (21:12)
[2021-10-13] MEDS ORDERED: SODIUM BICARB 8.4% INJ 50 MEQ/50 ML SYR IV ONE (21:12)
[2021-10-13] MEDS ORDERED: FLUMAZENIL 0.1 MG/1 ML 10 ML VIAL IV ONE (21:12)
--- NOTE | 2021-10-13 21:28 | Electrocardiogram Report ---
Test Reason : Blood Pressure : / mmHG Vent. Rate : 190 BPM Atrial Rate : 190 BPM P-R Int : 000 ms QRS Dur : 146 ms QT Int : 254 ms P-R-T Axes : 000 -18 128 degrees QTc Int : 451 ms Ventricular tachycardia Left bundle branch block Abnormal ECG When compared with ECG of 26-JAN-2017 13:17, Wide QRS tachycardia has replaced Sinus rhythm Vent. rate has increased BY 120 BPM Reconfirmed by Jovan Gamez ([id number]) on 10/13/2021 9:39:31 PM Referred By: Confirmed By:Jovan Gamez
--- NOTE | 2021-10-13 21:30 | Electrocardiogram Report ---
Test Reason : Blood Pressure : / mmHG Vent. Rate : 163 BPM Atrial Rate : 170 BPM P-R Int : 000 ms QRS Dur : 152 ms QT Int : 348 ms P-R-T Axes : 000 056 192 degrees QTc Int : 573 ms Ventricular tachycardia Left bundle branch block Abnormal ECG When compared with ECG of 12-OCT-2021 08:38, No significant change was found Reconfirmed by Jovan Gamez ([id number]) on 10/13/2021 9:39:15 PM Referred By: REFERRED SELF Confirmed By:Jovan Gamez
--- NOTE | 2021-10-13 21:31 | Electrocardiogram Report ---
Test Reason : Blood Pressure : / mmHG Vent. Rate : 059 BPM Atrial Rate : 059 BPM P-R Int : 160 ms QRS Dur : 100 ms QT Int : 488 ms P-R-T Axes : 069 083 097 degrees QTc Int : 484 ms Sinus bradycardia with Premature supraventricular complexes Prolonged QT Abnormal ECG When compared with ECG of 12-OCT-2021 13:23, Premature supraventricular complexes are now Present Confirmed by Jovan Gamez ([id number]) on 10/14/2021 5:33:34 AM Referred By: REFERRED SELF Confirmed By:Jovan Gamez
--- NOTE | 2021-10-13 21:38 | Electrocardiogram Report ---
Test Reason : Blood Pressure : / mmHG Vent. Rate : 160 BPM Atrial Rate : 174 BPM P-R Int : 000 ms QRS Dur : 166 ms QT Int : 348 ms P-R-T Axes : 000 063 176 degrees QTc Int : 567 ms Ventricular tachycardia Non-specific intra-ventricular conduction block Inferior infarct , age undetermined ST elevation, consider inferior injury Abnormal ECG When compared with ECG of 12-OCT-2021 09:03, No significant change was found Confirmed by Jovan Gamez ([id number]) on 10/13/2021 9:38:13 PM Referred By: REFERRED SELF Confirmed By:Jovan Gamez
--- NOTE | 2021-10-13 21:53 | Electrocardiogram Report ---
Test Reason : Blood Pressure : / mmHG Vent. Rate : 060 BPM Atrial Rate : 060 BPM P-R Int : 170 ms QRS Dur : 100 ms QT Int : 430 ms P-R-T Axes : 057 081 095 degrees QTc Int : 430 ms Normal sinus rhythm Abnormal ECG When compared with ECG of 12-OCT-2021 11:41, Sinus rhythm has replaced Ventricular tachycardia ST elevation is no longer present in inferior leads Confirmed by Jovan Gamez ([id number]) on 10/13/2021 9:53:08 PM Referred By: REFERRED SELF Confirmed By:Jovan Gamez
[2021-10-14] MEDS: PIPERACILLIN/TAZOBACTAM 3.375 GM in DEXTROSE 5% 100 ML IV SCH ×2 (00:26→10:44)
[2021-10-14] MEDS: INSULIN ASPART PER UNIT SC SCH ×6 (05:08→23:13)
[2021-10-14 05:29] LABS: Creatinine Clr Calc Pharmacy 88.9 ml/min; Est GFR (African American) 96.3 ml/min; Est GFR (Non-African American) 83.1 ml/min; Phosphorus 2.4 mg/dl (2.5-4.9); Potassium 3.7 mmol/L (3.5-5.1)
[2021-10-14] MEDS: METOPROLOL TARTRATE 25 MG TAB PO SCH ×2 (05:54→11:58)
[2021-10-14] MEDS ORDERED: POTASSIUM CHLORIDE / WTR 10 MEQ/100 ML PLCT IV SCH (06:41)
[2021-10-14 06:46] LABS: Hematocrit (blood only) 28.7 % (42-52); Hemoglobin 9.6 g/dL (14.0-18.0); Mean Corpuscular Hemoglobin 31.8 pg (25-34); Mean Corpuscular Hgb Conc 33.4 g/dL (32-36); Mean Platelet Volume 10.8 fL (7.4-10.4); Platelet Count 138 K/uL (130-400); RDW Coefficient of Variation 13.2 % (11.5-14.5); RDW Standard Deviation 45.7 fL (36.4-46.3); Red Blood Count 3.02 M/uL (4.7-6.1); White Blood Count 11.19 K/uL (4.8-10.8)
[2021-10-14 06:56] LABS: Basophils # (auto) 0.02 K/uL (0-0.2); Basophils % (auto) 0.2 %; Eosinophils # (auto) 0.01 K/uL (0-0.5); Eosinophils % (auto) 0.1 %; Immature Granulocytes # (auto) 0.01 K/uL (0.00-0.02); Immature Granulocytes % (auto) 0.1 %; Lymphocytes # (auto) 1.82 K/uL (1.2-3.4); Lymphocytes % (auto) 16.3 %; Monocytes # (auto) 1.06 K/uL (0.11-0.59); Monocytes % (auto) 9.5 %; Neutrophils # (auto) 8.27 K/uL (1.4-6.5); Neutrophils % (auto) 73.8 %
[2021-10-14] MEDS ORDERED: VANCOMYCIN HCL 1000MG/20ML VIAL ONE (06:56)
[2021-10-14] MEDS ORDERED: WATER, STERILE FOR INJ 10 ML VIAL ONE (06:56)
[2021-10-14] MEDS ORDERED: LIDOCAINE 1% LOCAL 20 ML VIAL ONE (06:56)
[2021-10-14] MEDS ORDERED: BACITRACIN OINT 0.9 GM PKT ONE (06:56)
--- NOTE | 2021-10-14 07:14 | XRay Report ---
XR chest 1V portable HISTORY: 66 years-old Male f/u acute respiratory failure COMPARISON: Chest radiograph 10/12/2021 TECHNIQUE: Portable AP view of the chest FINDINGS: Status post extubation with removal of the enteric tube. Cardiac silhouette is enlarged. Pulmonary va scular congestion with interstitial coarsening, moderately improved from prior. No pneumothorax. Smal l pleural effusions with mild bibasilar densities. Bones appear grossly intact. Degenerative changes of the shoulders and spine. IMPRESSION: 1. Status post extubation with removal of the enteric tube. 2. Cardiomegaly with moderately improved pulmonary edema. 3. Small pleural effusions with mild bibasilar opacities. ACT 112: Negative or not required by law. The above report was generated using voice recognition software. It may contain grammatical, syntax o r spelling errors. Electronically signed by: Bony Rivas M.D. 10/14/2021 7:12 AM
[2021-10-14] MEDS ORDERED: MIDAZOLAM HCL 5 MG/ML 1 ML VIAL ONE (07:26)
[2021-10-14] MEDS ORDERED: ceFAZolin 330 MG/ML 1 GM VIAL ONE (07:26)
[2021-10-14] MEDS ORDERED: fentaNYL citrate 100 MCG/2 ML VIAL ONE (07:26)
[2021-10-14] MEDS ORDERED: POTASSIUM PHOS 3 MMOL/1 ML INFUSION IV STA (07:32)
[2021-10-14] MEDS ORDERED: POTASSIUM PHOSPHATE 21 MMOL in SODIUM CHLORIDE 0.9% 500 ML IV ONE (08:00)
--- NOTE | 2021-10-14 08:06 | History & Physical Bridge Note ---
Date of Service October 14, 2021 History & Physical Bridge Note I have examined the patient, reviewed the History & Physical and in the interval since the performance of the History & Physical I have noted the following changes of clinical significance: no changes noted. I reviewed the indications, procedure, risks and alternatives with the patient, answered all questions. Consent obtained. Patient understands and agrees to the procedure. I also reviewed the risks and use of sedation, patient understands and consent obtained.
--- NOTE | 2021-10-14 08:06 | Pre Anesthesia Assessment ---
Date of Service October 14, 2021 Pre Sedation Assessment Vital Signs Temp Pulse Resp BP Pulse Ox 10/14/21 05:00 67 15 95 10/14/21 04:00 63 17 94 10/14/21 03:00 64 17 95 10/14/21 02:00 59 L 18 95 10/14/21 01:00 64 17 95 10/14/21 00:00 37.1 C 62 16 95 10/13/21 23:21 69 10/13/21 23:00 65 18 96 10/13/21 22:00 64 19 94 10/13/21 21:00 69 20 96 10/13/21 20:00 36.7 C 66 19 95 10/13/21 19:36 71 20 121/62 95 10/13/21 19:00 70 17 96 10/13/21 18:00 64 17 95 10/13/21 17:12 37.1 C 10/13/21 17:00 38.1 C H 74 16 96 10/13/21 16:00 38.0 C H 65 13 94 10/13/21 15:00 38.0 C H 64 14 95 10/13/21 14:00 38.0 C H 65 10 L 93 10/13/21 13:00 37.9 C H 64 16 92 10/13/21 12:00 37.9 C H 64 19 93 10/13/21 11:00 37.8 C H 72 17 96 10/13/21 10:15 37.7 C H 65 17 95 10/13/21 10:00 37.7 C H 62 16 93 10/13/21 09:45 37.7 C H 68 21 92 10/13/21 09:30 37.6 C H 62 18 93 10/13/21 09:15 37.6 C H 63 17 95 10/13/21 09:00 37.6 C H 61 16 93 10/13/21 08:45 37.7 C H 60 17 93 10/13/21 08:30 37.8 C H 61 17 93 10/13/21 08:15 37.8 C H 62 17 93 Cardiovascular RRR, no murmur, no edema Respiratory normal respiratory effort, lungs clear to auscultation Pre-Sedation Airway Assessment Smoking Status: Former smoker Hx Sleep Apnea: No Hx Difficult Intubation: No Short, Thick Neck: No Thyromental Distance: > or= 3.5 Finger Breadths Oral Cavity: + WNL Mallampati Class: III ASA: ASA2 NPO Status Date of Last Intake of Fluids: 10/11/21 Time of Last Intake of Fluids: 21:00 Date of Last Intake of Solid Food: 10/11/21 Time of Last Intake of Solid Foods: 21:00 Procedure Planning Contraindications for Sedation: none Current Medications Reviewed: Yes Notes The planned sedation has been discussed with the patient. Informed Consent was obtained. I have identified the patient, determined the appropriateness of sedation and have assessed the patient immediately prior to the procedure. All medicine(s) and interventions are by my order.
--- NOTE | 2021-10-14 09:27 | Critical Care Progress Note ---
Date of Service October 14, 2021 Assessment & Plan (1) Ventricular tachycardia, incessant: (2) Cardiac arrest: (3) Lactic acidosis: (4) Elevated troponin: (5) Transaminitis: (6) CATARINO (acute kidney injury): Plan: ICU CONSULT NOTE FORMAT: Reason Critically Ill: 66-year-old male with past medical history of coronary artery disease s/p RCA stent 1998, systolic CHF, peripheral vascular disease, COPD presented to the hospital with complaints of shortness of breath. Patient was found to be in V. tach. Did not respond to amiodarone and cardioversion. He was sent to the ICU to manage for V. tach storm. Had cardiac arrest on 10/12/2021, was following commands following that Neuro - CAM ICU negative Cardiac - --S/p V. tach storm On amiodarone drip Patient got 1 dose of 100 mg lidocaine EP and cardiology on board --Cardiac arrest with cardiogenic shock PEA, status post excessive resuscitation 10/12/21 Trend troponin S/p cardiac cath 10/12/2021, 100% occlusion of RCA. No intervention done. Continue with vasopressors to keep MAP greater than 65 --Elevated troponin Likely from type II MA Continue to trend Respiratory - --S/p VDRF Likely secondary to cardiac arrest with pulmonary edema Extubated 10/13/2021 Continue with BiPAP nightly and as needed shortness of breath GI - --Transaminitis Trending down Likely from cardiogenic shock Continue to monitor RENAL/LYTES - --CATARINO on CKD Improving Monitor BUNs/creatinine Avoid nephrotoxic medication - No acute issues ENDO - Continue with ICU hypoglycemia protocol HEME - --Leukocytosis Trending down Likely reactive to patient's current condition Nasal MRSA negative Patient did get a dose of antibiotics in the ED ID - Procalcitonin 0.4 Leukocytosis is likely reactive Continue to monitor --Prophylaxis VTE:Heparin GI: Protonix Lines: Right femoral, right radial, positive Alfaro Diet: N.p.o. Plan: In/out: -1640, urine output 2410 Patient's phosphorus and potassium being replaced Patient's CBC today is bit off. His hemoglobin is only 9.6. I will repeat CBC after the patient comes back from AICD placement Continue with amiodarone for the time being. Will transition to p.o. amiodarone today DC antibiotics Case discussed with Dr Ricardo Patient is hemodynamically stable to be downgraded to telemetry floor Please note the above document was generated using voice recognition software. It may contain grammatical, syntax or spelling errors.Any formal questions or concerns about the content, text or information contained within the body of this dictation should be directly addressed to the provider for clarification. Admission and Anticipated Discharge Date Admission Date: October 12, 2021 Subjective Patient seen and family bedside. No acute distress, no adverse events overnight Patient is going for AICD placement today Denied any headache, no nausea, no vomiting Shortness of breath is getting better Urinating well with Alfaro Review of Systems Review of Systems: All systems reviewed & are unremarkable except as noted in Subjective Physical Exam Physical Exam: Constitutional: No acute distress HEENT: EOMI, PERRLA Respiratory system: Decreased air entry bilaterally, no wheeze, rhonchi, p ositive crackles bilaterally CVS: S1-S2 positive, no murmurs or gallops Abdomen: Soft, nontender, nondistended, positive bowel sounds x4 Extremities: +2 pulses bilaterally radialis/ dorsalis pedis, no cyanosis, no edema Neuro: Awake alert oriented x3 Psych: Normal mood and affect G/U: Positive Alfaro Skin: no rashes, warm and dry Lymphatic: no cervical or axillary lymphadenopathy Results & Data Results & Data ([facility]) Vital Signs (Past 12 Hours) Vital Signs Temp Pulse Pulse Resp BP Pulse Ox 10/14/21 08:00 36.7 C 64 20 154/87 H 96 10/14/21 05:00 67 15 95 10/14/21 04:00 63 17 94 10/14/21 03:00 64 17 95 10/14/21 02:00 59 L 18 95 10/14/21 01:00 64 17 95 10/14/21 00:00 37.1 C 62 16 95 10/13/21 23:21 69 10/13/21 23:00 65 18 96 10/13/21 22:00 64 19 94 Laboratory Results 10/14/21 04:56 10/14/21 04:56 Coding Level of Care Code 52190 Subseq Hosp Care Lvl 3 Diagnoses Ventricular tachycardia, incessant I47.2 Cardiac arrest I46.9 Lactic acidosis E87.2 Elevated troponin R77.8 Transaminitis R74.01 CATARINO (acute kidney injury) N17.9
[2021-10-14] MEDS ORDERED: ACETAMINOPHEN W/CODEINE #3 1 TAB PO PRN (09:31)
[2021-10-14] MEDS ORDERED: ACETAMINOPHEN 325 MG TAB PO PRN (09:31)
--- NOTE | 2021-10-14 09:31 | Electrophysiology Report ---
Date of Service October 14, 2021 Electrophysiology Procedure Electrophysiology Procedure Report Preoperative diagnosis: Sustained ventricular tachycardia Ischemic cardiomyopathy Postoperative diagnosis: Same Procedure: Dual-chamber ICD implantation Surgeon: Chong Brooks MD Estimated blood loss: 20 cc Complications: None Disposition: Cardiology recovery Procedure details: After obtaining informed consent for the procedure, the patient was brought to the laboratory and prepped and draped in the standard sterile manner. The left prepectoral region was anesthetized with 1% lidocaine local anesthetic and left axillary venipuncture was performed by percutaneous technique and a guidewire placed through the left subclavian vein into the superior vena cava. The area was further infiltrated with 1% lidocaine local anesthetic and a 7 cm incision was made parallel to the left clavicle and 2 cm below it and carried down to the anterior pectoralis fascia. An ICD pocket was formed by blunt dissection anterior to the pectoralis fascia and a vancomycin soaked sponge was placed in the pocket. A 10.5 [place] Medtronic lead introducer was placed over the guidewire into the left subclavian vein, the dilator and guidewire were removed and a bipolar dual coil active fixation steroid tipped ventricular ICD lead was advanced through the introducer into the superior vena cava. A guidewire was placed through the introducer and the introducer was stripped from the lead and guidewire. An 8 [place] Medtronic lead introducer was placed over the guidewire into the left subclavian vein, the dilator and guidewire were removed and a bipolar active fixation steroid tipped atrial lead was advanced through the introducer into the superior vena cava. A guidewire was placed back through the introducer and the introducer was stripped from the lead and guidewire. Using a curved stylette the ventricular lead was advanced through the right ventricular outflow tract into the pulmonary artery and then using a straight stylette was positioned in the right ventricular apex. The screw was extended fixing the lead in position. Pacing and sensing thresholds were evaluated in bipolar configuration and are recorded on the implant data sheet. Using a curved stylette the atrial lead was positioned in the region of the atrial appendage and the screw extended fixing the lead in position. Pacing and sensing thresholds were evaluated in bipolar configuration and are recorded on the implant data sheet. Once the leads were in position they were attached to the anterior pectoralis fascia using 2 sutures of 2-0 silk around each lead collar. The vancomycin soaked sponge was removed from the pocket, hemostasis was obtained, the ICD was attached to the leads and placed in the pocket with the leads coiled beneath it. The incision was closed with a running double subcutaneous closure of 3-0 Vicryl absorbable suture, followed by running subcuticular skin closure of 4-0 Vicryl absorbable suture. Bacitracin ointment was placed on the incision and a dressing applied. [facility] codes Indication for Procedure (1) Ventricular tachycardia: (2) Ischemic cardiomyopathy: ICD Procedure 1: ICD: 48862 Insert single or dual ICD system PG Moderate Sedation Codes Moderate Sedation Codes Procedure 1: Sedation/Anesthesia: 83779 Mod Sedation by the same physician;Init15 Min Child Age 5 & Up Procedure 2: Sedation/Anesthesia: 34226 Mod Sedation by the same physician; Ea [id number] Minutes
[2021-10-14] MEDS: AMIODARONE 200 MG TAB PO SCH ×2 (11:55→21:43)
[2021-10-14] MEDS: HEPARIN SOD 5,000 UNIT/0.5 ML VIAL SQ SCH ×2 (11:56→21:46)
[2021-10-14 12:16] LABS: Basophils # (auto) 0.01 K/uL (0-0.2); Basophils % (auto) 0.1 %; Eosinophils # (auto) 0.01 K/uL (0-0.5); Eosinophils % (auto) 0.1 %; Hematocrit (blood only) 37.6 % (42-52); Hemoglobin 12.7 g/dL (14.0-18.0); Immature Granulocytes # (auto) 0.03 K/uL (0.00-0.02); Immature Granulocytes % (auto) 0.2 %; Lymphocytes # (auto) 1.91 K/uL (1.2-3.4); Mean Corpuscular Hemoglobin 31.7 pg (25-34); Mean Corpuscular Hgb Conc 33.8 g/dL (32-36); Mean Corpuscular Volume 93.8 fL (80-100); Mean Platelet Volume 10.8 fL (7.4-10.4); Monocytes % (auto) 6.3 %; Neutrophils % (auto) 78.3 %; Platelet Count 152 K/uL (130-400); RDW Coefficient of Variation 13.1 % (11.5-14.5); RDW Standard Deviation 45.2 fL (36.4-46.3); Red Blood Count 4.01 M/uL (4.7-6.1); White Blood Count 12.76 K/uL (4.8-10.8)
--- NOTE | 2021-10-14 12:34 | Post Anesthesia Assessment ---
Date of Service October 14, 2021 Post Sedation Assessment Vital Signs Temp Pulse Pulse Resp BP BP Pulse Ox 10/14/21 11:30 70 26 H 89 L 10/14/21 11:15 70 23 10/14/21 11:00 67 19 10/14/21 10:46 95 10/14/21 10:45 72 27 H 96 10/14/21 10:37 62 17 134/77 10/14/21 09:58 67 20 164/84 H 97 10/14/21 09:43 62 20 142/75 H 94 10/14/21 08:00 36.7 C 64 20 154/87 H 96 10/14/21 05:00 67 15 95 10/14/21 04:00 63 17 94 10/14/21 03:00 64 17 95 10/14/21 02:00 59 L 18 95 10/14/21 01:00 64 17 95 10/14/21 00:00 37.1 C 62 16 95 10/13/21 23:21 69 10/13/21 23:00 65 18 96 10/13/21 22:00 64 19 94 10/13/21 21:00 69 20 96 10/13/21 20:00 36.7 C 66 19 95 10/13/21 19:36 71 20 121/62 95 10/13/21 19:00 70 17 96 10/13/21 18:00 64 17 95 10/13/21 17:12 37.1 C 10/13/21 17:00 38.1 C H 74 16 96 10/13/21 16:00 38.0 C H 65 13 94 10/13/21 15:00 38.0 C H 64 14 95 10/13/21 14:00 38.0 C H 65 10 L 93 10/13/21 13:00 37.9 C H 64 16 92 Recovery Score Activity: Moves 4 extremities Respiration: Deep Breath/Cough Circulation: +/-20% PreAnes Value Consciousness: Fully Awake Oxygen Saturation: O2 needed for >90% Post Anesthesia Score: 9 Discharge Sedation Level of Care: Fast Track Phase II Post Sedation Plan On clinical assessment, the patient appears to have tolerated the sedation without complications. Patient is recovering as anticipated. Patient will continue to be monitored by nursing and may be discharged when sedation discharge criteria are met per below protocol. Upon Completions of procedure up to 15 minutes continue every 5 minute vital signs and the P.A.R. score; then discharge to a Phase I or Fast Track to Phase II per the following guidelines: * Discharge Patient to appropriate Phase II area if PAR is 8 or greater or retur n to pre- procedure baseline. The post - procedure orders will be as directed. * If PAR score is less than 8 or not return to pre-procedure baseline then patient will follow Phase I monitoring till PAR is reached for Phase II. The Phase I may be done in procedure room or may call to secure a Phase I area. * If naloxone or flumazenil are used for reversal, hold in Phase I for continued monitoring from when last reversal dose was given for a minimum of 60 minutes or longer pending the nurse and/or physician discretion of patient condition before discharge to Phase II. Please call the Sedation Physician to re-evaluate and complete post-note for discharge to Phase II area. Do NOT discharge from procedure sedation or Phase 1 until post- sedation evaluation note is complete by procedure /sedation MD Sedation Discharge Instructions to be given to the patient at discharge to home.
--- NOTE | 2021-10-14 13:52 | Cardiology Progress Note ---
Date of Service October 14, 2021 Assessment & Plan (1) Ventricular tachycardia, incessant: (2) CAD (coronary artery disease): (3) Hx of supraventricular tachycardia: (4) Hypertension: Plan: no further events Cardiac catheterization ruled out acute ischemia as possible cause Now status post ICD placement We will transition amiodarone to oral today Continue oral metoprolol Okay to transfer to telemetry from a cardiac standpoint Likely DC to home in the a.m. Admission and Anticipated Discharge Date Admission Date: October 12, 2021 Subjective Patient seen and examined, chart reviewed. Status post ICD placement this morning. States he is feeling well. Denies chest pain, shortness of breath, palpitations, lightheadedness or dizziness. Tolerating medications well and overall doing very well. Telemetry reviewed: Normal sinus rhythm without further arrhythmias. Review of Systems Review of Systems: All systems reviewed & are unremarkable except as noted in HPI & below Physical Exam Physical Exam: General: Awake, alert and oriented x 3. No acute distress. HEENT: Normocephalic, atraumatic. Pupils equal, round and reactive to light and accommodation. Extraocular muscles are intact. Anicteric sclera. Moist mucous membranes. Neck: No JVD. No bruit. Cardiovascular: Regular. Positive S-4. Normal S-1 and S-2. No S-3. No murmurs or rubs. Pulmonary: Clear to auscultation B/L. No rales, rhonchi or wheezing Abdomen: Bowel sounds x 4, soft. No rebound, guarding or tenderness. No organomegaly. Extremities: No clubbing, cyanosis or edema. +2 pedal pulses bilaterally. Skin: Warm and dry. Results & Data ([facility]) Vital Signs (Past 12 Hours) Vital Signs Temp Pulse Pulse Resp BP BP Pulse Ox 10/14/21 11:30 70 26 H 89 L 10/14/21 11:15 70 23 10/14/21 11:00 67 19 10/14/21 10:46 95 10/14/21 10:45 72 27 H 96 10/14/21 10:37 62 17 134/77 10/14/21 09:58 67 20 164/84 H 97 10/14/21 09:43 62 20 142/75 H 94 10/14/21 08:00 36.7 C 64 20 154/87 H 96 10/14/21 05:00 67 15 95 10/14/21 04:00 63 17 94 10/14/21 03:00 64 17 95 10/14/21 02:00 59 L 18 95 (1) CAD (coronary artery disease) Coronary Disease-Associated Artery/Lesion type: [place] artery [place] vs. transplanted heart: [place] heart Associated angina: without angina Qualified Code(s): I25.10 - Atherosclerotic heart disease of [place] coronary artery w ithout angina pectoris
--- NOTE | 2021-10-14 14:45 | Hospitalist Progress Note ---
Date of Service October 14, 2021 Assessment & Plan (1) Ventricular tachycardia, incessant: (2) CATARINO (acute kidney injury): (3) Transaminitis: (4) Elevated troponin: (5) Pneumonia: (6) COPD without exacerbation: Plan: This is a 66-year-old male who has significant past medical history of CAD with history of [place] 1998 status post BMS to RCA, history of ischemic cardiomyopathy, chronic HFrEF, history of SVT, HTN, HLD, history of PAD with angioplasty, COPD, former tobacco and alcohol user who presents to ED after complaining of shortness of breath and palpitations for 12 hours. Incessant ventricular tachycardia with Cardiogenic shock and PEA Cardiac Arrest s/p failed cardioversionx3 and now S/p ICD today He was found with sustained V-tach that did not respond to amiodarone In the ICU, he coded and intubated on vent support He attained ROSC and he was placed on pressor S/P extubation 10/13 and off pressor Card following- s/p amiodarone drip and now on po amiodarone from today 10/14. S/p lidocaine Continue oral metoprolol S/p ICD placement today 10/14 S/p cardiac cath that ruled out acute ischemia as a cause ok to transfer to telemetry unit H/o CAD s/p RCA stent 1998 S/p VDRF likely 2/2 cardiac arrest and pulm edema- extubated 10/13/21.continue BIPAP hs and prn Transamnitis from cardiogenic shock- recheck in am CATARINO- resolved, Cr down to 0.9 from 2.6 on admission Leukocytosis- significantly improved Lactic acidosis- resolved Possible pneumonia- has been on zosyn since admission. blood clx negative. Okay to discontinue ABx per pulm. DVT px on heparin subq Disposition- Transfer out of ICU to telemetry unit. Discussed with supply chain manager and bedside RN. Likely discharge home tomorrow Admission and Anticipated Discharge Date Admission Date: October 12, 2021 Subjective I saw and examined the patient at bedside in presence of his daughter. He feels fine. He would like the Melendez catheter out as soon as possible. States the ICD placement was felt much easier for him than his prior stent. Tolerating diet well with no issues. No nausea or vomiting. Passing gas, no bowel movement yet. States his hands feel puffy but legs look fine. Discussed that he can likely go home tomorrow, he states he is ready. Recommended using incentive spirometry more often Physical Exam Physical Exam: General: Lying comfortably in bed, not in distress, on room air HEENT: EOMI, PRASAD, MMM Chest: Bandage left upper chest at site of ICD. Clear breath sounds anteriorly, no wheezes or crackles CVS: Regular rate and rhythm, normal heart sounds, no murmur Abdomen: Soft, non tender, not distended, normal bowel sounds Neuro: Awake, alert, oriented, conversing well, non focal Extremities: No cyanosis, clubbing or edema On melendez with baldemar urine On A line Results & Data Results & Data ([facility]) Vital Signs (Past 12 Hours) Vital Signs Temp Pulse Pulse Resp BP BP Pulse Ox 10/14/21 11:30 70 26 H 89 L 10/14/21 11:15 70 23 10/14/21 11:00 67 19 10/14/21 10:46 95 10/14/21 10:45 72 27 H 96 10/14/21 10:37 62 17 134/77 10/14/21 09:58 67 20 164/84 H 97 10/14/21 09:43 62 20 142/75 H 94 10/14/21 08:00 36.7 C 64 20 154/87 H 96 10/14/21 05:00 67 15 95 10/14/21 04:00 63 17 94 10/14/21 03:00 64 17 95 Laboratory Results Short CBC 10/14/21 10/14/21 Range/Units 04:56 11:09 WBC 11.19 H 12.76 H (4.8-10.8) K/uL Hgb 9.6 L D 12.7 L D (14.0-18.0) g/dL Hct 28.7 L 37.6 L (42-52) % Plt Count 138 152 (130-400) K/uL BMP 10/14/21 04:56 Sodium 140 Potassium 3.7 Chloride 108 H Carbon Dioxide 27 BUN 19 Creatinine 0.95 D Glucose 101 H Calcium 8.0 L Diagnostic Findings Chest X-Ray 10/14/21 07:00 XR chest 1V portable HISTORY: 66 years-old Male f/u acute respiratory failure COMPARISON: Chest radiograph 10/12/2021 TECHNIQUE: Portable AP view of the chest FINDINGS: Status post extubation with removal of the enteric tube. Cardiac silhouette is enlarged. Pulmonary vascular congestion with interstitial coarsening, moderately improved from prior. No pneumothorax. Small pleural effusions with mild bibasilar densities. Bones appear grossly intact. Degenerative changes of the shoulders and spine. IMPRESSION: 1. Status post extubation with removal of the enteric tube. 2. Cardiomegaly with moderately improved pulmonary edema. 3. Small pleural effusions with mild bibasilar opacities. ACT 112: Negative or not required by law. The above report was generated using voice recognition software. It may contain grammatical, syntax or spelling errors. Electronically signed by: Bony Rivas M.D. 10/14/2021 7:12 AM Medications Administered Current Inpatient Medications Acetaminophen (Acetaminophen 325 Mg Tab) 650 mg PO Q4H PRN PRN Reason: Mild pain (rating 1,2,3) Stop: 11/13/21 09:30 Acetaminophen/Codeine Phosphate (Acetaminophen W/Codeine #3 1 Tab) 1 - 2 tab PO Q4H PRN PRN Reason: Moderate-Severe Pain Stop: 11/13/21 09:30 Amiodarone HCl (Amiodarone 200 Mg Tab) 400 mg PO BID CHINTAN Stop: 11/13/21 10:59 Last Admin: 10/14/21 11:55 Dose: 400 mg Documented by: Aspirin (Aspirin 81 Mg Ectab) 81 mg PO DAILY CHINTAN Stop: 11/12/21 08:59 Atorvastatin Calcium (Atorvastatin 40 Mg Tab) 80 mg PO DAILY CHINTAN Stop: 11/12/21 08:59 Dextrose (Dextrose 50% 50 Ml Syringe) 25 - 50 ml IV UD PRN; Protocol PRN Reason: Hypoglycemia Protocol Stop: 11/12/21 12:29 Ezetimibe (Ezetimibe 10 Mg Tablet) 10 mg PO DAILY CHINTAN Stop: 11/12/21 08:59 Glucagon (Glucagon For Inj 1 Mg Vial) 1 mg IM UD PRN; Protocol PRN Reason: Hypoglycemia Protocol Stop: 11/12/21 12:29 Glucose (Glucose 40% Gel 15 Gm Tube) 15 - 30 gm PO UD PRN; Protocol PRN Reason: Hypoglycemia Protocol Stop: 11/12/21 12:29 Glucose (Glucose 10 Tabs/Tube) 4 - 8 tabs PO UD PRN; Protocol PRN Reason: Hypoglycemia Protocol Stop: 11/12/21 12:29 Heparin Sodium (Porcine) (Heparin Sod 5,000 Unit/0.5 Ml Vial) 5,000 units SQ Q12 CHINTAN Stop: 11/12/21 08:59 Last Admin: 10/14/21 11:56 Dose: 5,000 units Documented by: Piperacillin Sod/Tazobactam (Sod 3.375 gm/ Dextrose) 115 mls @ 28.75 mls/hr IV Q8H [facility]; Protocol Stop: 10/14/21 17:59 Last Infusion: 10/14/21 14:50 Dose: Infused Documented by: Insulin Aspart (Insulin Aspart Per Unit) 0 units SC Q4 [facility] Stop: 11/11/21 20:44 Last Admin: 10/14/21 12:05 Dose: Not Given Documented by: Metoprolol Tartrate (Metoprolol Tartrate 50 Mg Tab) 50 mg PO BID [facility] Stop: 11/13/21 20:59 Miscellaneous (Carbohydrates For Hypoglycemia ) 15 - 30 gm PO UD PRN PRN Reason: Hypoglycemia Treatment Stop: 11/12/21 12:29 Miscellaneous Information (Piperacill/Tazobac Consult Active) 1 ea N/A UD PRN PRN Reason: Consult Stop: 10/14/21 17:59 Miscellaneous Information (Pharmacy Glycemic Mgmt Consult) 1 ea N/A UD PRN PRN Reason: Consult Stop: 11/11/21 20:20
[2021-10-14] MEDS: METOPROLOL TARTRATE 50 MG TAB PO SCH (21:50)
[2021-10-14 23:46] LABS: 7-Aminoclonaz, Confirm NEGATIVE ng/mL (<25); Hydro-Alp Ur, GC/MS NEGATIVE ng/mL (<25); Hydroxyethylflurazepam, Conf NEGATIVE ng/mL (<50); Hydroxymidazolam Ur, GC/MS >2000 ng/mL (<50); Hydroxytriazolam NEGATIVE ng/mL (<50); Lorazepam, Ur GC/MS NEGATIVE ng/mL (<50); Nordiazepam, Confirm NEGATIVE ng/mL (<50); Oxazepam Ur, GC/MS NEGATIVE ng/mL (<50); Temazepam, Confirm NEGATIVE ng/mL (<50)
[2021-10-15] MEDS: INSULIN ASPART PER UNIT SC SCH ×2 (03:57→07:27)
[2021-10-15 05:24] LABS: Basophils # (auto) 0.02 K/uL (0-0.2); Basophils % (auto) 0.2 %; Eosinophils # (auto) 0.02 K/uL (0-0.5); Eosinophils % (auto) 0.2 %; Hematocrit (blood only) 36.1 % (42-52); Hemoglobin 12.4 g/dL (14.0-18.0); Immature Granulocytes # (auto) 0.03 K/uL (0.00-0.02); Immature Granulocytes % (auto) 0.3 %; Lymphocytes # (auto) 2.05 K/uL (1.2-3.4); Lymphocytes % (auto) 17.5 %; Mean Corpuscular Hemoglobin 31.8 pg (25-34); Mean Corpuscular Hgb Conc 34.3 g/dL (32-36); Mean Corpuscular Volume 92.6 fL (80-100); Mean Platelet Volume 10.4 fL (7.4-10.4); Monocytes # (auto) 1.01 K/uL (0.11-0.59); Monocytes % (auto) 8.6 %; Neutrophils % (auto) 73.2 %; Platelet Count 156 K/uL (130-400); RDW Coefficient of Variation 12.9 % (11.5-14.5); RDW Standard Deviation 43.6 fL (36.4-46.3); White Blood Count 11.73 K/uL (4.8-10.8)
[2021-10-15 05:49] LABS: Albumin Level 3.1 gm/dl (3.4-5.0); BUN Creatinine Ratio 22.9 (10-20); Bilirubin Direct 0.2 mg/dl (0-0.2); Calcium 8.2 mg/dl (8.5-10.1); Creatinine Clr Calc Pharmacy 120.7 ml/min; Est GFR (Non-African American) 98.3 ml/min; Phosphorus 2.6 mg/dl (2.5-4.9); Potassium 3.6 mmol/L (3.5-5.1); Total Protein 5.5 gm/dl (6.0-8.3)
--- NOTE | 2021-10-15 06:05 | Electrocardiogram Report ---
Test Reason : Blood Pressure : / mmHG Vent. Rate : 063 BPM Atrial Rate : 063 BPM P-R Int : 156 ms QRS Dur : 104 ms QT Int : 516 ms P-R-T Axes : 070 079 103 degrees QTc Int : 529 ms Normal sinus rhythm Prolonged QT Abnormal ECG When compared with ECG of 13-OCT-2021 05:15, Premature supraventricular complexes are no longer Present Nonspecific T wave abnormality now evident in Inferior leads QT has lengthened Confirmed by Jovan Gamez ([id number]) on 10/15/2021 6:05:04 AM Referred By: REFERRED SELF Confirmed By:Jovan Gamez
--- NOTE | 2021-10-15 06:38 | Electrocardiogram Report ---
Test Reason : Blood Pressure : / mmHG Vent. Rate : 073 BPM Atrial Rate : 073 BPM P-R Int : 150 ms QRS Dur : 116 ms QT Int : 426 ms P-R-T Axes : 048 070 165 degrees QTc Int : 469 ms Poor data quality, interpretation may be adversely affected Normal sinus rhythm T wave abnormality, consider anterolateral ischemia Prolonged QT Abnormal ECG When compared with ECG of 14-OCT-2021 04:53, No significant change was found Confirmed by Jovan Gamez ([id number]) on 10/15/2021 6:37:53 AM Referred By: REFERRED SELF Confirmed By:Jovan Gamez
[2021-10-15] MEDS ORDERED: INSULIN ASPART PER UNIT SC SCH (07:45)
[2021-10-15] MEDS: AMIODARONE 200 MG TAB PO SCH (08:22)
[2021-10-15] MEDS: HEPARIN SOD 5,000 UNIT/0.5 ML VIAL SQ SCH (08:23)
[2021-10-15] MEDS: METOPROLOL TARTRATE 50 MG TAB PO SCH (08:24)
--- NOTE | 2021-10-15 08:54 | Pharmacy Report ---
Pharmacy Glycemic Short Note 2 - Date of Service October 15, 2021 - Glycemic Short BSG Results (Last 24 hours): 10/14/21 10/14/21 10/15/21 12:02 15:53 05:06 Glucose 106 H POC Glucose 188 H 129 H OUTPATIENT ANTIDIABETIC REGIMEN: * None * HbA1c = 6.3% (10/13/21) ASSESSMENT: 10/15: * Amio transitioned to PO, ordered diet. Other stressors stable. * Pt refusing BSG checks (last BSG 10/14 - 129mg/dL). BSG on BMP this AM 106mg/dL. Refusing Novolog - no insulin administration since 10/12. * D/W hospitalist -- Given patient is not a diabetic at baseline, BSGs have been within goal, and pt refusing checks, pharmacy to sign off. 10/13: * Patient extubated this morning. Off all pressors at this time. * Fasting BSG well controlled at 104 mg/dL this AM. * No further basal insulin will be administered. * Continue q4h Novolog for now while patient is NPO. 10/12: * Pharmacy automatically consulted per ICU hyperglycemic protocol * Will give low-dose Lantus x1 * Will initiate weight-based moderate stress Novolog q4h PLAN FOR INPATIENT GLYCEMIC CONTROL: * Basal insulin * None * Bolus insulin * None -- will be D/Cd as patient refusing
--- NOTE | 2021-10-15 09:50 | XRay Report ---
XR chest 2V PA/lateral HISTORY: 66 years-old Male EXACT TIME ORDERED Evaluate for pneumothorax and l status post placement of a left subclavian pacer/AICD COMPARISON: Chest radiograph 10/14/2021 TECHNIQUE: PA and lateral views of the chest FINDINGS: The cardiac silhouette is enlarged. Status post placement of a left subclavian pacer. No postprocedur al pneumothorax. Decreased size of a small pleural effusions with improved bibasilar densities. Pulmo nary vascular congestion with decreased pulmonary edema. The bones appear grossly intact. IMPRESSION: 1. Status post placement of a left subclavian pacer/AICD. No pneumothorax. 2. Cardiomegaly with improved pulmonary edema. 3. Small pleural effusions with decreased bibasilar opacities. ACT 112: Negative or not required by law. The above report was generated using voice recognition software. It may contain grammatical, syntax o r spelling errors. Electronically signed by: Bony Rivas M.D. 10/15/2021 9:49 AM
--- NOTE | 2021-10-15 11:50 | Cardiology Progress Note ---
Date of Service October 15, 2021 Assessment & Plan (1) Status post implantation of automatic cardioverter/defibrillator (AICD): Plan: He is doing well post ICD implantation yesterday. The site looks good, the device is working well and the leads are in good position on chest x-ray. I change the dressing and placed wound care orders in his discharge summary, that dressing should be kept on and dry and removed in 2 days. He is stable for discharge from my standpoint. Follow-up per Dc. Admission and Anticipated Discharge Date Admission Date: October 12, 2021 Subjective He is feeling well today, no significant incisional discomfort, no cardiovascular complaints. No chest pain or shortness of breath. Physical Exam Physical Exam: The incision is clean and dry, no bleeding or drainage. No significant swelling or erythema. Lungs are clear Cardiac rhythm is regular with no rub Results & Data ([facility]) Vital Signs (Past 12 Hours) Vital Signs Temp Pulse Pulse Resp BP Pulse Ox 10/15/21 07:27 36.9 C 71 16 134/72 93 10/15/21 03:00 36.9 C 65 18 138/74 92 10/15/21 00:00 65 Laboratory Results Cardiac Enzymes 10/15/21 Range/Units 05:06 AST 48 H (13-39) U/L CBC 10/14/21 10/15/21 Range/Units 11:09 05:06 WBC 12.76 H 11.73 H (4.8-10.8) K/uL RBC 4.01 L 3.90 L (4.7-6.1) M/uL Hgb 12.7 L D 12.4 L (14.0-18.0) g/dL Hct 37.6 L 36.1 L (42-52) % Plt Count 152 156 (130-400) K/uL Neut # (Auto) 10.00 H 8.60 H (1.4-6.5) K/uL Lymph # (Auto) 1.91 2.05 (1.2-3.4) K/uL [place] # (Auto) 0.80 H 1.01 H (0.11-0.59) K/uL Eos # (Auto) 0.01 0.02 (0-0.5) K/uL Baso # (Auto) 0.01 0.02 (0-0.2) K/uL Comprehensive Metabolic Panel 10/15/21 Range/Units 05:06 Sodium 142 (136-145) mmol/L Potassium 3.6 (3.5-5.1) mmol/L Chloride 109 H (98-107) mmol/L Carbon Dioxide 28 (21-32) mmol/L BUN 16 (6-23) mg/dl Creatinine 0.70 (0.6-1.4) mg/dl Glucose 106 H (70-99(Fasting)) mg/dl Calcium 8.2 L (8.5-10.1) mg/dl Direct Bilirubin 0.2 (0-0.2) mg/dl AST 48 H (13-39) U/L ALT 108 H (7-52) U/L Alkaline Phosphatase 56 (34-104) U/L Total Protein 5.5 L (6.0-8.3) gm/dl Albumin 3.1 L (3.4-5.0) gm/dl Intake and Output 10/14/21 10/15/21 10/15/21 22:59 06:59 14:59 Intake Total 757 / 1072 0 / 1072 Output Total 150 / 801 1 / 801 Balance 607 / 271 -1 271 Intake: IV 507 / 822 Potassium Phosphate 21 mmol In 507 / 507 Sodium Chloride 0.9% 500 ml @ 88 mls/hr IV ONE ONE Rx#: [id number] Oral 250 / 250 0 / 250 Output: Urine 150 / 150 # Bowel Movements Other: # Unmeasured Voids 1 1 Weight 89.2 kg 89.2 kg Weight Measurement Method Built in [facility] Patient Weight 10/16/21 06:59 Weight 89.2 kg Diagnostic Findings Telemetry: Sinus rhythm and atrial pacing appropriately Postop ECG: Normal pacer function with predominantly device inhibition Chest x-ray: Good lead position, no pneumothorax Device evaluation: Excellent pacing and sensing characteristics PG Care Time/CCT Total # of Minutes Spent Total Time Spent with Patient: Total time spent is greater than 50% in coordination of care (as documented) at patient's floor/unit and/or counseling patient: Coding Level of Care Code 70103 Post Operative Follow-Up Diagnoses Status post implantation of automatic cardioverter/defibrillator (AICD) Z95.810 CPT Codes Implantable Defib dual lead programming - 02135 ([id number])
--- NOTE | 2021-10-15 13:20 | Discharge Summary ---
Date of Service October 15, 2021 Admission HPI Per Admitting Provider This is a 66-year-old male who has significant past medical history of CAD with history of [place] 1999 status post BMS to RCA, history of ischemic cardiomyopathy, chronic HFrEF, history of SVT, HTN, HLD, history of PAD with angioplasty, COPD, former tobacco and alcohol user who presents to ED after complaining of shortness of breath and palpitations for 12 hours. Patient states he finished dinner last evening and went out to walk the dogs when all of a sudden he felt palpitations and short of breath. He tried 1 nitroglycerin without improvement. He did go inside and rest. Symptoms did not resolve and therefore came to ED. He denied any associated chest pain, lightheadedness, dizziness, syncope or diaphoresis. He has prior history of HI and does not feel this feels similar. He denies any recent illness or sick contacts. He denies documented fever, chills, sweats, chest pain, hemoptysis, nausea, vomiting, abdominal pain, diarrhea, melena, medic easier, dysuria, increased urgency or frequency with urination. He does have a chronic cough in setting of COPD and former tobacco abuse. Cough is wet and occasionally productive. He states occasionally it is purulent and other times it is clear. He feels it is unchanged. He denies any orthopnea or PND. Patient presented to ED with sustained monomorphic V. tach with heart rates in the 160s to 190s. Initially patient was given 6 mg and tomograms of adenosine without change to rhythm. He became hypotensive and received 100 J cardioversion without improvement. Cardiology was called to bedside. He was started on amiodarone bolus and drip. He persisted to be significantly tachycardic and hypotensive. He remained asymptomatic throughout and stated he, "felt well." 2 additional attempts of cardioversion were attempted at 360 J without improvement. He did receive 2L of IVF in ED along with initiated on broad spectrum antibiotics with vanco/zosyn due to concern for underlying sepsis. Patient will be admitted to ICU. Per chart review of [facility] patient did last have an exercise echo stress test on 02/06/2021 which was negative for inducible ischemia. Resting echo did reveal dilated LV chamber size with normal wall thickness, LVEF 45 to 50%, severe hypokinesis to akinesis of the inferior/inferolateral walker otherwise normal wall function, grade 1 diastolic dysfunction. Patient did previously follow with EP due to history of SVT. Patient did require cardioversion in the past but never underwent any formal procedures including ablation. Admission Exam Per Admitting Provider Constitutional: WD/WN, pale, vitals as above, NAD, lying in bed, pleasant, conversing easily Head: Normocephalic, Atraumatic Eyes: PERRL, conjunctivae normal, anicteric sclerae ENMT: external ear and nose normal, oropharynx normal Neck: trachea midline, no thyromegaly normal visual inspection Respiratory: normal respiratory effort, lungs clear to auscultation, no wheeze, rales, rhonchi. Normal insp/exp effort, no accessory muscle use Cardiovascular: Regular rate, but tachycardic in the 180s , no murmur, no edema Vessels: no JVD or carotid bruit Chest: normal inspection of chest Abdomen: normal bowel sounds, soft, nontender, no hepatosplenomegaly Musculoskeletal: no cyanosis or clubbing, extremities motor strength 5/5 Skin: no rashes, warm and dry normal turgor Neurologic: PERRL, EOMI, accommodation nl, no face palsy, no dysarthria CN's II-XI intact bilaterally and moves all extremities Psychiatric: A+Ox3, euthymic affect Lymphatic: no cervical or axillary lymphadenopathy : deferred Principal Diagnosis Incessant ventricular tachycardia s/p ICD Discharge Exam General: Sitting comfortably in bed eating lunch, not in distress, on room air HEENT: EOMI, PRASAD, MMM Chest: Bandage left upper chest at site of ICD. Clear breath sounds anteriorly, no wheezes or crackles CVS: Regular rate and rhythm, normal heart sounds, no murmur Abdomen: Soft, non tender, not distended, normal bowel sounds Neuro: Awake, alert, oriented, conversing well, non focal Extremities: No cyanosis, clubbing or edema Discharge Data Allergies Allergy/AdvReac Type Severity Reaction Status Date / Time No Known Allergies Allergy Unverified 10/12/21 09:13 Consultations 10/12/21 09:23 ED Decision to Admit Stat 10/12/21 09:59 Consult Cardiology Routine Consult Automation Sales Manager Routine 10/12/21 10:42 Consult Cardiac Electrophysiology Stat Procedures Performed Operation Date: 10/12/21 13:30 Actual Procedures s Cineradiography w/Routine Exam - Terrell Olivarez MD p Cath, Right and Left Heart - Terrell Olivarez MD s Ultrasound Vascular Access - Tererll Olivarez MD s POBA SGL Vessel - Terrell Olivarez MD Operation Date: 10/14/21 08:00 Actual Procedures p ICD Insertion Single or Dual - Chong Brooks MD Ordered Studies 10/12/21 11:49 US point of care ultrasound Urgent 10/12/21 13:21 CL Cath Imgs for PACS use only Stat 10/14/21 07:00 EP Lab Images for PACS ONCE 10/14/21 08:09 CL Cath Imgs for PACS use only Stat Hospital Course (1) Ventricular tachycardia, incessant: (2) CATARINO (acute kidney injury): (3) Transaminitis: (4) Elevated troponin: (5) Pneumonia: (6) COPD without exacerbation: This is a 66-year-old male who has significant past medical history of CAD with history of [place] 1998 status post BMS to RCA, history of ischemic cardiomyopathy, chronic HFrEF, history of SVT, HTN, HLD, history of PAD with angioplasty, COPD, former tobacco and alcohol user who presents to ED after complaining of shortness of breath and palpitations for 12 hours. Incessant ventricular tachycardia with Cardiogenic shock and PEA Cardiac Arrest s/p failed cardioversionx3 and now S/p ICD 10/14/21 He was found with sustained V-tach that did not respond to amiodarone In the ICU, he coded and intubated on vent support He attained ROSC and he was placed on pressor S/P extubation 10/13 and off pressor Card following- s/p amiodarone drip and now on po amiodarone from 10/14. S/p 1 dose of lidocaine Continue oral metoprolol S/p cardiac cath that ruled out acute ischemia as a cause S/p ICD placement today 10/14 which was interrogated today and functioning fine. Discussed with cardio prior to discharge- cleared for discharge on lopressor and amiodarone. They will arrange for follow up. Discharge instructions provided by cardio. H/o CAD s/p RCA stent 1998 S/p VDRF likely 2/2 cardiac arrest and pulm edema- extubated 10/13/21. Doing fine, breathing comfortably in room air, using incentive spirometry well. He will continue using at home Transamnitis from cardiogenic shock- improving from admission. Recommend repeat LFT in a week to ensure resolution. CATARINO- resolved, Cr down to 0.9 from 2.6 on admission Leukocytosis- almost normalized. lactic acidosis resolved. He was on zosyn since admission for possible pneumonia but discontinued as per pulm recommendation as no definite evidence of pneumonia and it was all likely from his VTach and cardiogenic shock with some pulm edema. Leucocytosis was likely reactive. He is anxious to go home. Comfortable and stable for discharge. Total Time Total Time Spent Total Time Spent (In Minutes): 35 Discharge Plan Discharge Items Patient Disposition: Home - Self-Care Reason For Visit: SUSTAINED VTACH Discharge Diagnosis: Sustained Ventricular Tachycardia Activity: Per Instructions section Non-emergency contact: Primary Care Provider and [place] Call non-emergency contact if: you have any medication questions, your symptoms worsen, your pain is concerning for you, you have a fever and your wound has increased redness Follow-up/Referrals: Elie Jaramillo DO [Primary Care Provider] - (Date & Time 10/20/2021 11:20 AM Provider Elie Jaramillo DO Department Family Practice [facility] ) Diet: Heart Healthy Addtl Attending Provider Instructions: Stop your coreg. You have been started on lopressor and amiodarone. Regarding your enalapril, if it is only for blood pressure you can hold as your blood pressure is good. If it is to protect the kidneys from the diabetes, you can resume but please check with your family doctor first to clarify. Follow with the heart doctor. Also your liver function test is improving, recommend repeat test in a week to ensure resolution. ACTIVITY RECOMMENDATIONS: * Do not raise affected arm over head for 2 weeks. SPECIAL CARE INSTRUCTIONS: * If bleeding occurs, apply direct pressure to area for 5 minutes. * Call your doctor if you have severe pain, fever, drainage or bleeding at site. * Keep dressing on and dry for 48 hours then remove. * Keep any scheduled doctor's appointment. * Implant Card - hand held device with website information given. SKIN IRRITATION: * You may experience some redness and/or swelling in the area where radiation was administered. If any skin irritation occurs, please contact your family physician. FOLLOW UP VISIT: Keep any scheduled doctor appointments. Pending Studies at Discharge: No Stand-Alone Forms: [facility], Smoking Cessation Medications and DC Order Prescriptions: New amiodarone 200 mg Tablet 400 mg PO BID Qty: 60 RF: 0 metoprolol tartrate 50 mg Tablet 50 mg PO BID Qty: 60 RF: 0 Continued atorvastatin 80 mg Tablet 80 mg PO DAILY Qty: 0 RF: 0 enalapril maleate 2.5 mg Tablet 2.5 mg PO HS Qty: 0 RF: 0 aspirin [Aspirin Low Dose] 81 mg Tablet,Delayed Release (Dr/Ec) 81 mg PO DAILY Qty: 0 RF: 0 nitroglycerin 0.4 mg Tablet, Sublingual 0.4 mg sublingual DIRECTED PRN (Reason: Chest Pain) RF: 0 ezetimibe 10 mg Tablet 10 mg PO DAILY RF: 0 Discontinued carvedilol 6.25 mg Tablet 6.25 mg PO BID Qty: 0 RF: 0 Discharge Orders: Discharge Order (Routine); Ordered 10/15/21 Ordered By: Elbert Tripp/Other Patient Handouts: Prediabetes, 5 Steps for Eating Healthier Admission Data Admit Date/Time: 10/12/21 09:59 Attending Provider: Elbert Ricardo Admit Provider: Marybeth Zhou Primary Care Provider: Elie Jaramillo Other Providers: Marybeth Zhou ; Erich Loving ; Verenice Keita ; Chong Brooks
--- NOTE | 2021-10-15 14:48 | Cardiology Progress Note ---
Date of Service October 15, 2021 Assessment & Plan (1) Ventricular tachycardia, incessant: (2) CAD (coronary artery disease): (3) Hx of supraventricular tachycardia: (4) Hypertension: Plan: No further episodes of ventricular tachycardia Status post dual-chamber ICD placement, appropriately functioning. My office will call to arrange device check as well as pocket check as an outpatient. Would discharge home on metoprolol 50 mg p.o. twice daily along with amiodarone 400 mg twice daily. We will need close cardiology follow-up in 1 to 2 weeks. Would also recommend electrophysiology evaluation as an outpatient for possible V. tach ablation. Okay to discharge home today. Admission and Anticipated Discharge Date Admission Date: October 12, 2021 Subjective Patient seen and examined, chart reviewed. Device check this a.m. reveals appropriately functioning dual-chamber ICD. Family at bedside. Patient states he feels great and back to normal. Denies any cardiac complaints of chest pain, shortness of breath, palpitations, lightheadedness, dizziness or syncope. Telemetry reviewed: Normal sinus rhythm without further arrhythmias. Review of Systems Review of Systems: All systems reviewed & are unremarkable except as noted in HPI & below Physical Exam Physical Exam: General: Awake, alert and oriented x 3. No acute distress. HEENT: Normocephalic, atraumatic. Pupils equal, round and reactive to light and accommodation. Extraocular muscles are intact. Anicteric sclera. Moist mucous membranes. Neck: No JVD. No bruit. Cardiovascular: Regular. Positive S-4. Normal S-1 and S-2. No S-3. No murmurs or rubs. Pulmonary: Clear to auscultation B/L. No rales, rhonchi or wheezing Abdomen: Bowel sounds x 4, soft. No rebound, guarding or tenderness. No o rganomegaly. Extremities: No clubbing, cyanosis or edema. +2 pedal pulses bilaterally. Skin: Warm and dry. Results & Data ([facility]) Vital Signs (Past 12 Hours) Vital Signs Temp Pulse Pulse Resp BP Pulse Ox 10/15/21 13:18 36.8 C 67 19 118/63 92 10/15/21 12:21 36.8 C 67 19 118/63 92 10/15/21 08:00 62 10/15/21 07:27 36.9 C 71 16 134/72 93 10/15/21 03:00 36.9 C 65 18 138/74 92 (1) CAD (coronary artery disease) Coronary Disease-Associated Artery/Lesion type: [place] artery [place] vs. transplanted heart: [place] heart Associated angina: without angina Qualified Code(s): I25.10 - Atherosclerotic heart disease of [place] coronary artery without angina pectoris
== END 2021-10-15 13:56 | disposition home or self-care (01) | DRG 265 ==
LOC: ED 08:24 → 1E 09:59 → SUATTDRO 09:59 → 1E 10:45
PROC: EPB.ICD (2021-10-14 08:00)

== ENCOUNTER 2022-08-13 16:22 | Inpatient (IN) ==
--- NOTE | 2022-08-13 16:34 | Emergency Department Note ---
Impression & Plan Ventricular tachycardia, Hypercalcemia, Elevated troponin I level, CATARINO (acute kidney injury) ED Provider Note NAME: CHI LANDAVERDE AGE: 67 SEX: M : 1955 ARRIVES VIA: Ambulance INFORMANT: Patient, EMS, the patient's primary rose grower ED PROVIDER(S): Severo Lujan DO CHIEF COMPLAINT: Palpitations HPI: The patient is a 67-year-old male who has a history of ventricular tachycardia who presented to the emergency department for an evaluation of dizziness. The patient has had 3 episodes since last week of dizziness and feeling as though his heart was racing. He had a scheduled appointment with his primary rose grower today so he waited for that appointment. When he went to see his rose grower today he had his defibrillator interrogated and was found to be having episodes of ventricular tachycardia. He had some adjustments he was recently started on a medication for his prostate but stopped this on his own because he thought it was making his palpitations worse. Otherwise he has been compliant with his outpatient medications. The patient first had these episodes last spring when he was found to be in ventricular tachycardia. ROS: See above HPI for pertinent positives & negatives. A total of 10 systems reviewed and were otherwise negative. PAST MEDICAL HISTORY: See Below PAST SURGICAL HISTORY: See Below FAMILY HISTORY: See Below SOCIAL HISTORY: See Below HOME MEDICATIONS: See Below ALLERGIES: See Below VITALS: See Below PHYSICAL EXAMINATION: GENERAL: Patient is awake alert in no acute distress patient is resting comfortably and showing no signs of anxiety EYES: The conjunctivae are clear. The pupils are round and reactive. EARS, NOSE, MOUTH AND THROAT: The nose is without any evidence of any deformity. NECK: The neck is nontender and supple. RESPIRATORY: Normal respiratory effort is noted there is no evidence of wheezing rhonchi or rales CARDIOVASCULAR: Tachycardic and regular heart sounds were noted to auscultation. No definite murmur was noted. GASTROINTESTINAL: The abdomen is soft. Abdomen is nontender. MUSCULOSKELETAL/EXTREMITIES: There is no evidence of gross deformity full range of motion is noted in the hips and shoulders. SKIN: There is no obvious evidence of any rash. There are no petechiae, pallor or cyanosis noted. NEUROLOGIC: Patient is awake alert and oriented x3 MEDICAL DECISION MAKING: The patient is a 67-year-old male who presented to the emergency department for an evaluation of ventricular tachycardia. He has a history of ventricular tachycardia. He has a defibrillator. He has been having dizziness and episodes of palpitations which began last week. The patient was seen by his primary rose grower. He was found to have ventricular tachycardia. He was treated with a dose of amiodarone prior to arrival. Upon arrival here he was having intermittent episodes of wide-complex tachycardia. He was further treated with IV amiodarone in the emergency department. I discussed patient's laboratory and radiographic studies with him. I discussed his condition with the on-call [facility] rose grower. He was evaluated in the emergency department by the rose grower. The patient was also discussed with the on-call [facility] hospitalist group. They have agreed to evaluate the patient in the emergency department for further management and disposition. The patient's had some degree of weight loss as well. He was found to have an elevation in the creatinine as well as hypercalcemia. He may require further inpatient work-up to evaluate the cause of this finding. The patient was agreeable to inpatient management. He was feeling much better on subsequent reevaluation. Triage Nursing notes reviewed. Prior medical records reviewed Vital Signs: reviewed and remarkable for elevated blood pressure. Differential diagnosis: Premature contractions, electrolyte abnormality, cardiac dysrhythmia, thyroid dysfunction, pulmonary embolism, infection, gastrointestinal, as well as other pathologies. ER treatment provided: See below Diagnostics interpreted by me: ECG: Atrial EKG was obtained in the emergency department. My interpretation is atrial paced rhythm at 81 bpm. No nome beats were appreciated. QRS duration was 156 ms. There was nonspecific ST segment abnormalities noted. This was compared to a tracing from October 14, 2021. The paced rhythm as well as a wide QRS is new compared to the previous tracing. Cardiac Monitoring: An order was placed for continuous cardiac monitoring. The monitor shows a rate of 76 bpm with paced rhythm. Laboratory studies: As stated above and show below. Imaging studies: See below. Radiographic imaging was reviewed by myself Consultation(s): I discussed this case with Dr. Cramer who is on-call for the [facility] cardiology group. I discussed this case with Jessica who is on-call for the [facility] hospitalist group. ED COURSE: Critical Care: I have personally spent greater than 45 minutes of critical care time in the direct management of this patient. This includes bedside care, interpretation of diagnostic studies, and testing, discussion with consultants, patient, and family members, and other required patient management activities. This 45 minutes is in excess of all separately billable procedures. Past Med/Surg History Medical History (Updated 08/13/22 @ 21:02 by Kae Castillo PA-C) CAD (coronary artery disease) Chronic HFrEF (heart failure with reduced ejection fraction) COPD (chronic obstructive pulmonary disease) HLD (hyperlipidemia) Hx of myocardial infarction Hx of supraventricular tachycardia Hypertension Ischemic cardiomyopathy PAD (peripheral artery disease) Surgical History History of angioplasty of peripheral vessel PCI x 3 to Right Iliac 03/29/2014 History of heart artery stent 1999 BMS to RCA Family History Mother Stroke Social History Smoking Status: Former smoker Hx Alcohol Use: No Hx Substance Use: No Preferred Language: Czech Communication Ability: Effective Rn Night Required: No Beliefs That Will Affect Care: None marital status: Current Living Situation: Family Current Living Situation Comment: Lives with and mother who is 93, he is caregiver Other Information That Helps Us Care for You: No Feels Safe at Home: Yes Safety Concerns: Feels Safe At This Time Assistive Devices: None Allergies Allergies Allergy/AdvReac Type Severity Reaction Status Date / Time No Known Allergies Allergy Unverified 08/13/22 18:10 Home Meds Home Medications Medication Instructions Recorded Confirmed aspirin 81 mg tablet,delayed 81 mg PO QAM ##0 01/26/17 08/13/22 release (Aniceto Low Dose Aspirin) atorvastatin 80 mg tablet 80 mg PO QAM #0 tabs 01/26/17 08/13/22 nitroglycerin 0.4 mg sublingual 0.4 mg sublingual DIRECTED PRN 10/12/21 08/13/22 tablet Chest Pain amiodarone 200 mg tablet 200 mg PO DAILY 08/13/22 08/13/22 carvedilol 12.5 mg tablet 12.5 mg PO BID 08/13/22 08/13/22 enalapril maleate 2.5 mg tablet 2.5 mg PO HS 08/13/22 08/13/22 metoprolol succinate 50 mg 50 mg PO BID 08/13/22 08/13/22 tablet,extended release 24 hr blktpsfw-ybe-yookt acid 300 1 tab PO QAM 08/13/22 08/13/22 mcg-lycopene 600 mcg-lutein 300 mcg tablet (Centrum Silver Men) Results & Data (ED) Vital Signs Vital Signs - 24 hr 08/13/22 16:23 08/13/22 16:23 08/13/22 17:02 Pulse Rate 86 82 Pulse Rate [Right Finger] 76 Respiratory Rate 16 16 Respiratory Effort / Characteristics Non-Labored Respiratory Depth Normal Blood Pressure 118/76 Blood Pressure [Right Arm] 128/72 Blood Pressure Mean 90 Blood Pressure Mean [Right Arm] 90 Pulse Oximetry 96 97 98 Oxygen Delivery Method Room Air Room Air Room Air Sepsis Recent Fever Within 48 Hours No Sepsis New/Unexplained Change in Mental Status N/A Sepsis Action Taken by Nursing No Action Required 08/13/22 17:21 08/13/22 17:30 Pulse Rate Pulse Rate [Right Finger] 76 78 Respiratory Rate 16 16 Respiratory Effort / Characteristics Non-Labored Non-Labored Respiratory Depth Normal Normal Blood Pressure Blood Pressure [Right Arm] 121/68 123/72 Blood Pressure Mean Blood Pressure Mean [Right Arm] 85 89 Pulse Oximetry 94 93 Oxygen Delivery Method Room Air Room Air Sepsis Recent Fever Within 48 Hours Sepsis New/Unexplained Change in Mental Status Sepsis Action Taken by [facility] Medications Current Medication List: was personally reviewed by me Laboratory Data Attestation: I reviewed the patient's lab results. 08/13/22 16:36 08/13/22 16:36 Lab Results 08/13/22 08/13/22 08/13/22 Range/Units 16:36 16:36 16:36 WBC 8.48 (4.8-10.8) K/ul RBC 4.27 L (4.70-6.10) M/uL Hgb 12.1 L (14.0-18.0) g/dl Hct 35.7 L (42.0-52.0) % MCV 83.6 (80.0-100.0) fL MCH 28.3 (25.0-34.0) pg MCHC 33.9 (32.0-36.0) g/dL RDW Std Deviation 46.1 (36.4-46.3) fL RDW Coeff of Sapna 15.3 H (11.5-14.5) % Plt Count 248 (130-400) K/uL MPV 10.2 (9.4-12.4) fL Immature Gran % (Auto) 0.5 % Neut % (Auto) 69.9 % Lymph % (Auto) 16.2 % [place] % (Auto) 10.6 % Eos % (Auto) 2.0 % Baso % (Auto) 0.8 % Neut # (Auto) 5.93 (1.40-6.50) K/uL Lymph # (Auto) 1.37 (1.2-3.4) K/uL [place] # (Auto) 0.90 H (0.11-0.59) K/uL Eos # (Auto) 0.17 (0-0.50) K/uL Baso # (Auto) 0.07 (0-0.2) K/uL Immature Gran # (Auto) 0.04 (0.01-0.20) K/uL Sodium 141 (136-145) mmol/L Potassium 3.5 (3.5-5.1) mmol/L Chloride 108 H (98-107) mmol/L Carbon Dioxide 30 (21-32) mmol/L Anion Gap 3 (3-11) BUN 29 H (6-23) mg/dl Creatinine 2.44 H (0.6-1.4) mg/dl Est Cr Clr Drug Dosing 29.3 ml/min Est GFR ( Amer) 30.6 ml/min Est GFR (Non-Af Amer) 26.4 ml/min BUN/Creatinine Ratio 11.9 (10-20) Glucose 171 H (70-99(Fasting)) mg/dl Calcium 13.1 H* (8.5-10.1) mg/dl Magnesium 2.0 (1.7-2.4) mg/dl Total Bilirubin 0.8 (0.2-1.0) mg/dl AST 21 (13-39) U/L ALT 17 (7-52) U/L Alkaline Phosphatase 96 (34-104) U/L Troponin I High Sens 132.1 H* (0-20) pg/ml Total Protein 6.8 (6.0-8.3) gm/dl Albumin 3.7 (3.4-5.0) gm/dl Globulin 3.1 (2.5-4.0) gm/dl Albumin/Globulin Ratio 1.2 (0.9-2) Lipase 20 (11-82) U/L TSH 2.699 (0.300-4.500) uIu/ml SARS-CoV-2, RNA, NAAT (NEGATIVE) 08/13/22 Range/Units 17:00 WBC (4.8-10.8) K/ul RBC (4.70-6.10) M/uL Hgb (14.0-18.0) g/dl Hct (42.0-52.0) % MCV (80.0-100.0) fL MCH (25.0-34.0) pg MCHC (32.0-36.0) g/dL RDW Std Deviation (36.4-46.3) fL RDW Coeff of S[place] (11.5-14.5) % Plt Count (130-400) K/uL MPV (9.4-12.4) fL Immature Gran % (Auto) % Neut % (Auto) % Lymph % (Auto) % [place] % (Auto) % Eos % (Auto) % Baso % (Auto) % Neut # (Auto) (1.40-6.50) K/uL Lymph # (Auto) (1.2-3.4) K/uL [place] # (Auto) (0.11-0.59) K/uL Eos # (Auto) (0-0.50) K/uL Baso # (Auto) (0-0.2) K/uL Immature Gran # (Auto) (0.01-0.20) K/uL Sodium (136-145) mmol/L Potassium (3.5-5.1) mmol/L Chloride (98-107) mmol/L Carbon Dioxide (21-32) mmol/L Anion Gap (3-11) BUN (6-23) mg/dl Creatinine (0.6-1.4) mg/dl Est Cr Clr Drug Dosing ml/min Est GFR ( Amer) ml/min Est GFR (Non-Af Amer) ml/min BUN/Creatinine Ratio (10-20) Glucose (70-99(Fasting)) mg/dl Calcium (8.5-10.1) mg/dl Magnesium (1.7-2.4) mg/dl Total Bilirubin (0.2-1.0) mg/dl AST (13-39) U/L ALT (7-52) U/L Alkaline Phosphatase (34-104) U/L Troponin I High Sens (0-20) pg/ml Total Protein (6.0-8.3) gm/dl Albumin (3.4-5.0) gm/dl Globulin (2.5-4.0) gm/dl Albumin/Globulin Ratio (0.9-2) Lipase (11-82) U/L TSH (0.300-4.500) uIu/ml SARS-CoV-2, RNA, NAAT NEGATIVE (NEGATIVE) Administered Medications Heparin Sodium (Porcine) (Heparin Sod 5,000 Unit/0.5 Ml Vial) 5,000 units SQ Q8 CHINTAN Stop: 09/12/22 21:59 Last Admin: 08/13/22 21:31 Dose: 5,000 units Documented By: RON Amiodarone HCl/Dextrose (Nexterone / D5w) 360 mg in 200 mls @ 33.333 mls/hr IV ONE ONE Stop: 08/13/22 22:45 Last Admin: 08/13/22 16:54 Dose: 1 mg/min, 33.3 mls/hr Documented By: FREIDA Co-signed By: LORY Sodium Chloride (Nss 1000ml) 1,000 mls @ 80 mls/hr IV .[id number] CHINTAN Stop: 08/14/22 08:24 Last Admin: 08/13/22 21:33 Dose: 80 mls/hr Documented By: RON Metoprolol Tartrate (Metoprolol Tartrate 25 Mg Tab) 25 mg PO Q6H CHINTAN Stop: 09/12/22 19:59 Last Admin: 08/13/22 21:30 Dose: 25 mg Documented By: RON Miscellaneous (Icu Protocol For Hyperglycemia) 1 each N/A ACHS CHINTAN Stop: 08/15/22 20:59 Last Admin: 08/13/22 21:30 Dose: 1 each Documented By: RON Discontinued Medications Amiodarone HCl/Dextrose (Amiodarone 150mg / 100ml D5w) Confirm Administered Dose 150 mg IV .STK-MED ONE Stop: 08/13/22 16:36 Last Admin: 08/13/22 16:57 Dose: Not Given Documented By: FREIDA Amiodarone HCl (Amiodarone Iv Bolus & Drip) 1 each IV NOW STA; Protocol Stop: 08/13/22 16:37 Last Admin: 08/13/22 16:58 Dose: Not Given Documented By: FREIDA Amiodarone HCl (Amiodarone Hcl Inj 50 Mg/Ml 3 Ml Vial) Confirm Administered Dose 150 mg IV .STK-MED ONE Stop: 08/13/22 16:38 Last Admin: 08/13/22 16:41 Dose: Not Given Documented By: FREIDA Amiodarone HCl/Dextrose (Nexterone / D5w) 150 mg in 100 mls @ 600 mls/hr IV NOW STA Stop: 08/13/22 16:45 Last Infusion: 08/13/22 16:55 Dose: 0 mls/hr Documented By: FREIDA Co-signed By: LORY Admin: 08/13/22 16:40 Dose: 600 mls/hr Documented By: FREIDA Co-signed By: LORY Sodium Chloride (Nss 1000ml) 1,000 mls @ 999 mls/hr IV .Q1H1M ONE Stop: 08/13/22 18:22 Last Infusion: 08/13/22 19:49 Dose: 0 mls/hr Documented By: Admin: 08/13/22 18:12 Dose: 999 mls/hr Documented By: FREIDA Metoprolol Tartrate (Metoprolol Tartrate 50 Mg Tab) 25 mg PO NOW STA Stop: 08/13/22 16:38 Last Admin: 08/13/22 16:44 Dose: 25 mg Documented By: FREIDA Miscellaneous (Stat Iv Infusion Titration Per Protocol) 1 each N/A NOW STA Stop: 08/13/22 16:37 Last Admin: 08/13/22 19:49 Dose: Not Given Documented By: RON Potassium Chloride (Potassium Chloride Crtab 20 Meq Tabcr) 40 meq PO NOW STA Stop: 08/13/22 18:50 Last Admin: 08/13/22 21:29 Dose: 40 meq Documented By: RON Imaging Data Radiologist's Impression: Chest X-Ray 08/13/22 16:25 XR chest 1V portable HISTORY: Chest pain, nonspecific COMPARISON: Chest 10/15/2021. FINDINGS: No pneumothorax. The heart is stable in size. The lungs are clear. No evidence for pulmonary edema. The left-sided pacemaker/defibrillator again noted. IMPRESSION: No acute process. ACT 112: Negative or not required by law. Electronically signed by: Wyatt Plunkett M.D. 08/13/2022 5:32 PM Discharge Plan Visit Data Chief Complaint: Cardiac Assessment Stated Complaint: CARDIAC ASSESSMENT ED Provider: Severo Lujan Discharge Problem: Ventricular tachycardia, Hypercalcemia, Elevated troponin I level, CATARINO (acute kidney injury) Patient Disposition: Admitted As Inpatient Discharge Instructions Interventions: ED Discharge Assessment Last Done: 08/13/22 19:04
[2022-08-13] MEDS ORDERED: AMIODARONE 150MG / 100ML D5W IV ONE (16:35)
[2022-08-13] MEDS ORDERED: AMIODARONE IV BOLUS & DRIP IV STA (16:36)
[2022-08-13] MEDS ORDERED: AMIODARONE / D5W 150 MG/100 ML BAG IV STA (16:36)
[2022-08-13] MEDS ORDERED: STAT IV Infusion **Titration per Protocol STA (16:36)
[2022-08-13] MEDS ORDERED: 0.2 MICRON FILTER SET 1 EACH IV STA (16:36)
[2022-08-13] MEDS ORDERED: METOPROLOL TARTRATE 50 MG TAB PO STA (16:37)
[2022-08-13] MEDS ORDERED: AMIODARONE HCL INJ 50 MG/ML 3 ML VIAL IV ONE (16:37)
[2022-08-13] MEDS ORDERED: AMIODARONE / D5W 360 MG/200 ML BAG IV ONE (16:46)
[2022-08-13 16:56] LABS: Basophils # (auto) 0.07 K/uL (0-0.2); Basophils % (auto) 0.8 %; Eosinophils # (auto) 0.17 K/uL (0-0.50); Hematocrit (blood only) 35.7 % (42.0-52.0); Hemoglobin 12.1 g/dl (14.0-18.0); Immature Granulocytes # (auto) 0.04 K/uL (0.01-0.20); Immature Granulocytes % (auto) 0.5 %; Lymphocytes # (auto) 1.37 K/uL (1.2-3.4); Lymphocytes % (auto) 16.2 %; Mean Corpuscular Hemoglobin 28.3 pg (25.0-34.0); Mean Corpuscular Hgb Conc 33.9 g/dL (32.0-36.0); Mean Corpuscular Volume 83.6 fL (80.0-100.0); Mean Platelet Volume 10.2 fL (9.4-12.4); Monocytes % (auto) 10.6 %; Neutrophils # (auto) 5.93 K/uL (1.40-6.50); Neutrophils % (auto) 69.9 %; Platelet Count 248 K/uL (130-400); RDW Coefficient of Variation 15.3 % (11.5-14.5); RDW Standard Deviation 46.1 fL (36.4-46.3); Red Blood Count 4.27 M/uL (4.70-6.10); White Blood Count 8.48 K/ul (4.8-10.8)
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
[2022-08-13] MEDS ORDERED: SODIUM CHLORIDE 0.9% 1000ML 1,000 ML IV ONE (17:22)
[2022-08-13 17:31] LABS: Albumin Globulin Ratio 1.2 (0.9-2); Albumin Level 3.7 gm/dl (3.4-5.0); BUN Creatinine Ratio 11.9 (10-20); Bilirubin,Total 0.8 mg/dl (0.2-1.0); Calcium 13.1 mg/dl (8.5-10.1); Creatinine Clr Calc Pharmacy 29.3 ml/min; Est GFR (African American) 30.6 ml/min; Est GFR (Non-African American) 26.4 ml/min; Globulin 3.1 gm/dl (2.5-4.0); Potassium 3.5 mmol/L (3.5-5.1); Total Protein 6.8 gm/dl (6.0-8.3); Troponin I High Sensitivity 132.1 pg/ml (0-20)
--- NOTE | 2022-08-13 17:33 | XRay Report ---
XR chest 1V portable HISTORY: Chest pain, nonspecific COMPARISON: Chest 10/15/2021. FINDINGS: No pneumothorax. The heart is stable in size. The lungs are clear. No evidence for pulmonar y edema. The left-sided pacemaker/defibrillator again noted. IMPRESSION: No acute process. ACT 112: Negative or not required by law. Electronically signed by: Wyatt Plunkett M.D. 08/13/2022 5:32 PM
--- NOTE | 2022-08-13 18:04 | History & Physical Report ---
Date of Service August 13, 2022 Assessment & Plan (1) Sustained ventricular tachycardia: (2) ICD (implantable cardioverter-defibrillator) discharge: (3) Ischemic cardiomyopathy: Plan: Patient is 67-year-old male with PMH CAD, [place] in 1998, ischemic cardiomyopathy, chronic systolic heart failure, HTN, dyslipidemia,, PVD s/p stent, history of wide-complex tachycardia, s/p ICD 10/2021, BPH, former smoker presented to ER with complaint of palpitations, dizziness. ICD fired x 3 3D MODELER. Given IV amiodarone 150mg prior to arrival. In ER having episodes of nonsustained ventricular tachycardia Started on amiodarone drip Defibrillator pads in place Echo pending History Echo 10/2021: EF: 45-50% Cardiology consult. Dr Cramer evaluated patient in ER. Recommends amiodarone drip. Recommends holding carvedilol. Starting metoprolol tartrate 25 mg every 6 hours (4) Elevated troponin I level: Plan: High-sensitivity troponin: 132 Likely secondary to V. tach, defibrillation No current chest pain Trend troponin Echo pending Continue aspirin, atorvastatin (5) CATARINO (acute kidney injury): Plan: Cr: 2.4. Was 2.0 on 07/29/2022 and 1.3 on 05/12/2022 per outpatient chart review Bladder scan as needed Renal ultrasound pending Hold enalapril Gentle IVF Monitor renal functions, avoid nephrotoxic agents when possible (6) Hypercalcemia: Plan: Ca: 13.1. Was 11.6 on 07/29/2022, 9.4 on 05/12/2022 per outpatient chart review Denies OTC supplements +Recent weight loss TSH: 2.6. Vitamin D, ionized calcium, PTH pending (7) Hypertension: Plan: Hold enalapril Hold carvedilol, start metoprolol tartrate per cardiology as above (8) HLD (hyperlipidemia): Plan: Continue atorvastatin (9) COPD without exacerbation: Plan: Not on home inhalers No signs of acute exacerbation DVT Prophylaxis Heparin SQ Full Code as per discussion with pt Follows with Dr Jaramillo for routine care Pt was seen and care coordinated with Dr Ann. See addendum I spent a total of 75 minutes reviewing notes, outpatient records, labs, medication, coordinating, documenting and providing care for this patient excluding time spent in the performance of separately billed services. History of Present Illness Chief Complaint: Palpitations, dizziness Primary Care Provider: Elie Jaramillo DO Patient is 67-year-old male with PMH CAD, [place] in 1998, ischemic cardiomyopathy, chronic systolic heart failure, HTN, dyslipidemia,, PVD s/p stent, history of wide-complex tachycardia, s/p ICD 10/2021, BPH, former smoker presented to ER wi th complaint of palpitations, dizziness. History obtained from patient, outpatient and inpatient chart review. Patient reports has had issues for months with things not tasting well. Initially thought secondary to amiodarone, and amiodarone was discontinued in 05/2022. Last week patient reports felt heart racing when he went up a flight of stairs so he sent a interrogation. It was noted patient had several episodes of NSVT over the past several days. Patient was seen in EP office today by Dr Domínguez. He reports had some changes to ICD in office. Upon leaving clinic he reports had some mid chest pressure. He was driving home when had onset of palpitations, SOB. He reports ICD firing 3 times. He returned to office and was given IV amiodarone 150mg and transferred to ER via EMS. Further outpatient chart review Carvedilol had been changed to metoprolol secondary to fatigue over 6 months ago. Patient reports was having dizziness when he was started on Flomax. So he discontinued. He was prescribed finasteride and patient felt that was also causing dizziness so he discontinued. Patient reports 50 pound weight loss over the past 6 months. Denies fever/chills, diaphoresis, N/V/D/C, KULKARNI, syncope, vision changes, neck pain, orthopnea, cough, sore throat, choking, otalgia, rhinorrhea, abdominal pain, paresthesias, extremity edema, rashes, dysuria, hematuria, urinary retention. In ER he was seen by cardiology and started on amiodarone drip. Allergies Allergy/AdvReac Type Severity Reaction Status Date / Time No Known Allergies Allergy Unverified 08/13/22 18:10 Home Medications Medication Instructions Recorded Confirmed Type aspirin 81 mg tablet,delayed 81 mg PO QAM ##0 01/26/17 08/13/22 History release (Aniceto Low Dose Aspirin) atorvastatin 80 mg tablet 80 mg PO QAM #0 tabs 01/26/17 08/13/22 History nitroglycerin 0.4 mg sublingual 0.4 mg sublingual DIRECTED PRN 10/12/21 08/13/22 History tablet Chest Pain amiodarone 200 mg tablet 200 mg PO DAILY 08/13/22 08/13/22 History carvedilol 12.5 mg tablet 12.5 mg PO BID 08/13/22 08/13/22 History enalapril maleate 2.5 mg tablet 2.5 mg PO HS 08/13/22 08/13/22 History metoprolol succinate 50 mg 50 mg PO BID 08/13/22 08/13/22 History tablet,extended release 24 hr [id number]-[id number] acid 300 1 tab PO QAM 08/13/22 08/13/22 History mcg-lycopene 600 mcg-lutein 300 mcg tablet (Centrum Silver Men) Past Med/Surg History Medical History (Updated 08/13/22 @ 21:02 by Kae Castillo PA-C) CAD (coronary artery disease) Chronic HFrEF (heart failure with reduced ejection fraction) COPD (chronic obstructive pulmonary disease) HLD (hyperlipidemia) Hx of myocardial infarction Hx of supraventricular tachycardia Hypertension Ischemic cardiomyopathy PAD (peripheral artery disease) Surgical History History of angioplasty of peripheral vessel PCI x 3 to Right Iliac 03/29/2014 History of heart artery stent 1999 BMS to RCA Family History Mother Stroke Social History Smoking Status: Former smoker Hx Alcohol Use: No Hx Substance Use: No Preferred Language: Sudanese Communication Ability: Effective Fiber Technician Required: No Beliefs That Will Affect Care: None marital status: Current Living Situation: Family Current Living Situation Comment: Lives with and mother who is 93, he is caregiver Other Information That Helps Us Care for You: No Feels Safe at Home: Yes Safety Concerns: Feels Safe At This Time Assistive Devices: None Review of Systems Review of Systems: All systems reviewed & are unremarkable except as noted in HPI & below Physical Exam Physical Exam: General: no acute distress, Thin elderly male Head: normocephalic, atraumatic Eyes: conjunctiva non-injected, anicteric ENT: normal inspection external ears, nose, mucous membranes mildly dry Neck: supple, trachea midline Lungs: clear, no respiratory distress, diminished breath sounds with no wheezing/rhonchi/rales CV: RRR, no murmur, no pretibial edema Abd: normal BS, soft, non-tender Ext: no cyanosis, no calf tenderness Neuro: A&O x 3, no focal deficits noted, normal affect Skin: warm, dry Results & Data Results & Data ([facility]) Vital Signs (Past 12 Hours) Vital Signs Pulse Pulse Resp BP BP Pulse Ox O2 Del Method 08/13/22 17:30 78 16 123/72 93 Room Air 08/13/22 17:21 76 16 121/68 94 Room Air 08/13/22 17:02 76 16 128/72 98 Room Air 08/13/22 16:23 82 97 Room Air 08/13/22 16:23 86 16 118/76 96 Room Air Laboratory Results Short CBC 08/13/22 Range/Units 16:36 WBC 8.48 (4.8-10.8) K/ul Hgb 12.1 L (14.0-18.0) g/dl Hct 35.7 L (42.0-52.0) % Plt Count 248 (130-400) K/uL BMP 08/13/22 16:36 Sodium 141 Potassium 3.5 Chloride 108 H Carbon Dioxide 30 BUN 29 H Creatinine 2.44 H Glucose 171 H Calcium 13.1 H* Liver Function 08/13/22 Range/Units 16:36 Total Bilirubin 0.8 (0.2-1.0) mg/dl AST 21 (13-39) U/L ALT 17 (7-52) U/L Alkaline Phosphatase 96 (34-104) U/L Albumin 3.7 (3.4-5.0) gm/dl Diagnostic Findings Chest X-Ray 08/13/22 16:25 XR chest 1V portable HISTORY: Chest pain, nonspecific COMPARISON: Chest 10/15/2021. FINDINGS: No pneumothorax. The heart is stable in size. The lungs are clear. No evidence for pulmonary edema. The left-sided pacemaker/defibrillator again noted. IMPRESSION: No acute process. ACT 112: Negative or not required by law. Electronically signed by: Wyatt Plunkett M.D. 08/13/2022 5:32 PM
[2022-08-13] MEDS ORDERED: POTASSIUM CHLORIDE CRTAB 20 MEQ TABCR PO STA (18:49)
[2022-08-13] MEDS ORDERED: SODIUM CHLORIDE 0.9% 1000ML 1,000 ML IV SCH (19:55)
--- NOTE | 2022-08-13 20:49 | Critical Care Consultation ---
Date of Consultation August 13, 2022 Assessment & Plan (1) Ventricular tachycardia: Impression: 67-year-old male with extensive past cardiac history presents to the ED ICU following 3 episodes of ventricular tachycardia with AICD shock and CATARINO. Neuro CAM ICU: Negative Cardiac Ventricular tachycardiapatient with 3 episodes of V. tach with shock from AICD. ICD placed last year following ischemic cardiomyopathy and V. tach -Patient previously on amiodarone but was unable to tolerate due to loss in appetite. Was currently on high-dose metoprolol. -Bolused with 150 mg of amiodarone IV and currently on amnio drip of 1 mg/h. Continue -Cardiology following, appreciate recommendations -Maximize electrolytes -Continue MTP 25 mg every 6 hours p.o. -Consider lidocaine if continued V. tach -Defibrillator pads to remain on patient -Continuous monitor on telemetry in ICU for now HFpEFlast echo 10/23 with mildly reduced systolic function and EF of 45 to 50%. Patient has history of ischemic cardiomyopathy -No indication for diuresis at this time as patient is currently without CHF exacerbation. -Follow-up repeat echo CADpatient does have mildly elevated troponin which is likely due to V. tach/defibrillation and CATARINO. Will trend for now. -No chest pain or ST elevation on EKG. Continue ASA, MTP HLDcontinue statin Respiratory COPDpatient reports history of cigarette smoking for 40 years but quit 10 years ago. -No outpatient medications on med list for COPD. No issue at this time. -Continuous monitoring pulse ox GI - Heart healthy diet RENAL/LYTES AKIcreatinine 2.44 with prior baseline of 0.7 -Patient does report recent increased of enalapril and recent diagnosis of BPH but was unable to tolerate finasteride -Urine studies pending -Renal ultrasound pending -Hold enalapril for now -Follow-up ionized calcium for hypercalcemia -Continue with IV fluid resuscitation to maintain euvolemia -Monitor electrolytes and replete as indicated for potassium 4.0 and magnesium 2.0 -Avoid nephrotoxins and renally adjust medications -Follow-up routine BMP in a.m. BPHpatient unable to tolerate Flomax. Continue to monitor strict I's and O's. Follow-up renal ultrasound ENDO No history of diabetes or thyroid disease, ICU hyperglycemic protocol HEME H&H stable, monitor routine CBC ID - No negation for infectious process at this time LINES/IV ACCESS - Peripheral IVs DVT PROPHYLAXIS - SCDs, heparin Thank you for allowing us to participate in the care of this patient. Please refer to my attending physician's documentation for any further recommendations. (2) Hypercalcemia: (3) Elevated troponin I level: (4) CATARINO (acute kidney injury): (5) ICD (implantable cardioverter-defibrillator) discharge: (6) Chronic heart failure with reduced ejection fraction and diastolic dysfunction: (7) Ischemic cardiomyopathy: (8) COPD without exacerbation: (9) Transaminitis: (10) Hypertension: (11) Hx of supraventricular tachycardia: (12) CAD (coronary artery disease): History of Present Illness Attending Physician: Cristy Olivas DO History of Present Illness Patient is a 67-year-old male with PMH CAD, HFrEF, COPD, HLD, ischemic cardiomyopathy, PAD, HTN, SVT, V. tach, and previous VT who presented to cardiology clinic earlier today following episodes of ventricular tachycardia with shock from AICD x3. Patient stated that he felt chest tightness and his heart began to race prior to each shock. Patient was given 150 mg IV amiodarone. He has past history of ventricular tachycardia prior to his AICD pl acement, and was previously on amiodarone which had to be stopped due to intolerance regarding his appetite and was placed on metoprolol. Patient also presents with CATARINO and reports that his enalapril dose was recently increased. He also reports recent diagnosis of BPH but was unable to tolerate Flomax due to dizziness. Patient has had no other incidents of V. tach since arrival to the hospital and starting on amiodarone. Plan to admit to intensive care for continued monitoring with defibrillator pads on patient, with amiodarone drip and MTP. On arrival to the ICU the patient is alert and oriented and without acute distress. He is maintaining oxygen saturations on room air and is hemodynamically stable. Patient states that prior to this incidence he was in his usual state of health. He denies any headache or syncope or loss of consciousness, fevers or illness or sore throat, cough, shortness of breath, wheezing, chest pain, abdominal pain, nausea vomiting or diarrhea, swelling in hands or feet, changes in gait. He does report recent changes in urine stream with increased frequency. He also reports palpitations at the time of each episode of V. tach with defibrillation. Patient to remain in ICU for further management at this time. Allergies Allergy/AdvReac Type Severity Reaction Status Date / Time No Known Allergies Allergy Unverified 08/13/22 18:10 Home Medications Medication Instructions Recorded Confirmed Type aspirin 81 mg tablet,delayed 81 mg PO QAM ##0 01/26/17 08/13/22 History release (Aniceto Low Dose Aspirin) atorvastatin 80 mg tablet 80 mg PO QAM #0 tabs 01/26/17 08/13/22 History nitroglycerin 0.4 mg sublingual 0.4 mg sublingual DIRECTED PRN 10/12/21 08/13/22 History tablet Chest Pain amiodarone 200 mg tablet 200 mg PO DAILY 08/13/22 08/13/22 History carvedilol 12.5 mg tablet 12.5 mg PO BID 08/13/22 08/13/22 History enalapril maleate 2.5 mg tablet 2.5 mg PO HS 08/13/22 08/13/22 History metoprolol succinate 50 mg 50 mg PO BID 08/13/22 08/13/22 History tablet,extended release 24 hr tqqqzszh-wqm-pypwf acid 300 1 tab PO QAM 08/13/22 08/13/22 History mcg-lycopene 600 mcg-lutein 300 mcg tablet (Centrum Silver Men) Patient History Medical History (Updated 08/13/22 @ 21:02 by Kae Castillo PA-C) CAD (coronary artery disease) Chronic HFrEF (heart failure with reduced ejection fraction) COPD (chronic obstructive pulmonary disease) HLD (hyperlipidemia) Hx of myocardial infarction Hx of supraventricular tachycardia Hypertension Ischemic cardiomyopathy PAD (peripheral artery disease) Surgical History History of angioplasty of peripheral vessel PCI x 3 to Right Iliac 03/29/2014 History of heart artery stent 1999 BMS to RCA Family History Mother Stroke Social History Smoking Status: Former smoker Hx Alcohol Use: No Hx Substance Use: No Preferred Language: Chadian Communication Ability: Effective It Consultant Required: No Beliefs That Will Affect Care: None marital status: Current Living Situation: Family Current Living Situation Comment: Lives with and mother who is 93, he is caregiver Other Information That Helps Us Care for You: No Feels Safe at Home: Yes Safety Concerns: Feels Safe At This Time Assistive Devices: None Review of Systems Review of Systems: All systems reviewed & are unremarkable except as noted in HPI & below Physical Exam Constitutional: WD/WN, vitals as above cooperative and comfortable; no acute distress Eyes: PERRL, conjunctivae normal, anicteric sclerae ENMT: external ear and nose normal, oropharynx normal Neck: trachea midline, no thyromegaly Respiratory: normal respiratory effort, lungs clear to auscultation symmetric chest movement; no cough and not tachypneic Cardiovascular: RRR, no murmur, no edema Heart Sounds: normal S1 and normal S2 Vessels: no JVD Extremities: no edema Gastrointestinal (Abdomen): normal bowel sounds, soft, nontender, no hepatosplenomegaly Skin: no rashes, warm and dry Neurologic: PERRL, EOMI, accommodation nl, no face palsy, no dysarthria Psychiatric: A+Ox3, euthymic affect Results & Data Results & Data ([facility]) Vital Signs (Past 12 Hours) Vital Signs Temp Pulse Pulse Resp BP BP Pulse Ox 08/13/22 19:58 36.9 C 76 17 160/97 H 97 08/13/22 19:04 08/13/22 18:11 76 16 138/84 97 08/13/22 17:30 78 16 123/72 93 08/13/22 17:21 76 16 121/68 94 08/13/22 17:02 76 16 128/72 98 08/13/22 16:23 82 97 08/13/22 16:23 86 16 118/76 96 O2 Del Method 08/13/22 19:58 Room Air 08/13/22 19:04 Room Air 08/13/22 18:11 Room Air 08/13/22 17:30 Room Air 08/13/22 17:21 Room Air 08/13/22 17:02 Room Air 08/13/22 16:23 Room Air 08/13/22 16:23 Room Air Coding Level of Care Code INP/OBS CONSULT LVL 2, 35 MIN Diagnoses Ventricular tachycardia I47.20 Hypercalcemia E83.52 Elevated troponin I level R77.8 CATARINO (acute kidney injury) N17.9 ICD (implantable cardioverter-defibrillator) discharge Z45.02 Chronic heart failure with reduced ejection fraction and diastolic dysfunction I50.42 Ischemic cardiomyopathy I25.5 COPD without exacerbation J44.9 Transaminitis R74.01 Hypertension I10 Hx of supraventricular tachycardia Z86.79 CAD (coronary artery disease) I25.10 Associated angina: without angina Coronary Disease-Associated Artery/Lesion type: [place] artery [place] vs. transplanted heart: [place] heart Time Spent (min) 43 (1) CAD (coronary artery disease) Associated angina: without angina Coronary Disease-Associated Artery/Lesion type: [place] artery [place] vs. transplanted heart: [place] heart Qualified Code(s): I25.10 - Atherosclerotic heart disease of [place] coronary artery without angina pectoris
[2022-08-13] MEDS ORDERED: MAGNESIUM SULFATE / D5W 1 GM/100 ML BAG IV ONE (21:00)
--- NOTE | 2022-08-13 21:03 | Ultrasound Report ---
RENAL ULTRASOUND CLINICAL HISTORY: Acute kidney injury, r/o obstruction COMPARISON STUDY: None. TECHNIQUE: Sonography of the kidneys and the urinary bladder was performed. FINDINGS: The right kidney measures 11.4 x 5.6 x 5.9 cm and the left kidney measures 11.3 x 5.7 x 5.8 cm. There is no hydronephrosis. Renal echogenicity, size and cortical thickness are within normal li mits. Several renal cysts are noted. Multiple right renal calculi measure up to 8 mm. Ureteral jets w ere not visualized. The prostate is enlarged, measuring approximately 5.5 cm in transverse dimension. IMPRESSION: 1. No hydronephrosis. 2. Right-sided nephrolithiasis. 3. Enlarged prostate. ACT 112: Negative or not required by law. Electronically signed by: Jamie Aldana M.D. 08/13/2022 9:02 PM
[2022-08-13] MEDS: ICU Protocol for HYPERglycemia SCH (21:30)
[2022-08-13] MEDS: METOPROLOL TARTRATE 25 MG TAB PO SCH (21:30)
[2022-08-13] MEDS: HEPARIN SOD 5,000 UNIT/0.5 ML VIAL SQ SCH (21:31)
[2022-08-13] MEDS: AMIODARONE / D5W 360 MG/200 ML BAG IV SCH (22:28)
[2022-08-13 22:43] LABS: Appearance Urine Clear (Clear); Bacteria Urine Automated Negative (Negative); Bilirubin Urine Negative (Negative); Blood Urine Negative (Negative); Color Urine Yellow; Epithelial Cell Urine Auto >30 /lpf (0-5); Glucose Urine UA Negative (Negative); Ketones Urine Negative (Negative); Leukocyte Esterase Urine Negative (Negative); Nitrite Urine Negative (Negative); Protein Urine Trace (Negative); RBC Urine Automated 0-4 /hpf (0-4); Specific Gravity Urine 1.012 (1.000-1.030); Urobilinogen Urine Negative (Negative)
[2022-08-13 22:56] LABS: Calcium Oxalate Crystals Urine Present (None Prsent)
[2022-08-13 23:34] LABS: BUN Creatinine Ratio 12.6 (10-20); Calcium 11.4 mg/dl (8.5-10.1); Est GFR (African American) 35.6 ml/min; Est GFR (Non-African American) 30.7 ml/min; Magnesium 1.9 mg/dl (1.7-2.4); Potassium 2.9 mmol/L (3.5-5.1)
[2022-08-14 00:20] LABS: Troponin I High Sensitivity 206.6 pg/ml (0-20)
[2022-08-14] MEDS: METOPROLOL TARTRATE 25 MG TAB PO SCH ×2 (02:45→07:45)
[2022-08-14] MEDS ORDERED: MAGNESIUM SULFATE / D5W 1 GM/100 ML BAG IV ONE (05:19)
[2022-08-14] MEDS ORDERED: POTASSIUM CHLORIDE 20 MEQ/15 ML UDC PO STA (05:19)
[2022-08-14] MEDS: HEPARIN SOD 5,000 UNIT/0.5 ML VIAL SQ SCH ×3 (05:24→21:31)
[2022-08-14 05:48] LABS: Hematocrit (blood only) 31.5 % (42.0-52.0); Hemoglobin 10.9 g/dl (14.0-18.0); Mean Corpuscular Hemoglobin 28.7 pg (25.0-34.0); Mean Corpuscular Hgb Conc 34.6 g/dL (32.0-36.0); Mean Corpuscular Volume 82.9 fL (80.0-100.0); Mean Platelet Volume 10.3 fL (9.4-12.4); Platelet Count 240 K/uL (130-400); RDW Coefficient of Variation 15.2 % (11.5-14.5); RDW Standard Deviation 46.4 fL (36.4-46.3); White Blood Count 6.35 K/ul (4.8-10.8)
[2022-08-14] MEDS: POTASSIUM CHLORIDE / WTR 10 MEQ/100 ML PLCT IV SCH ×4 (05:54→09:08)
[2022-08-14 06:12] LABS: Albumin Globulin Ratio 1.1 (0.9-2); BUN Creatinine Ratio 12.5 (10-20); Bilirubin,Total 0.5 mg/dl (0.2-1.0); Calcium 11.1 mg/dl (8.5-10.1); Creatinine Clr Calc Pharmacy 35.1 ml/min; Est GFR (African American) 37.1 ml/min; Globulin 2.8 gm/dl (2.5-4.0); Magnesium 1.8 mg/dl (1.7-2.4); Potassium 3.4 mmol/L (3.5-5.1); Total Protein 5.8 gm/dl (6.0-8.3); Troponin I High Sensitivity 172.7 pg/ml (0-20)
[2022-08-14] MEDS: ICU Protocol for HYPERglycemia SCH ×4 (07:10→21:17)
[2022-08-14] MEDS: ASPIRIN 81 MG ECTAB PO SCH (07:45)
[2022-08-14] MEDS: ATORVASTATIN 40 MG TAB PO SCH (07:45)
[2022-08-14] MEDS: MAGNESIUM SULFATE / D5W 1 GM/100 ML BAG IV SCH ×2 (09:07→11:19)
[2022-08-14] MEDS: AMIODARONE / D5W 360 MG/200 ML BAG IV SCH (11:43)
--- NOTE | 2022-08-14 12:02 | Cardiology Progress Note ---
Date of Service August 14, 2022 Assessment & Plan (1) Sustained ventricular tachycardia: (2) ICD (implantable cardioverter-defibrillator) discharge: (3) Ischemic cardiomyopathy: Plan: Cardiac catheterization October 2021 with chronic right coronary occlusion (4) Chronic heart failure with reduced ejection fraction and diastolic dysfunction: (5) COPD without exacerbation: (6) Hypercalcemia: Plan 67-year-old patient presents to the cardiology clinic with sustained ventricular tachycardia status post ICD shock x3. Rhythm improved with 150 mg of IV amiodarone although occasional short salvos of ventricular tachycardia noted on telemetry. Recurrent arrhythmia precipitated by discontinuation of amiodarone and transition of beta-oma therapy as noted above. Patient being loaded with IV amiodarone. Ventricular tachycardia less frequent with no device interventions We will continue IV amiodarone load Change metoprolol tartrate to metoprolol succinate Optimize electrolytes Repeat echocardiogram ordered No exam findings of congestive heart failure Admission and Anticipated Discharge Date Admission Date: August 13, 2022 Subjective Patient was seen and examined, chart, medications, telemetry reviewed. He notes he feels much better today than prior day denies current chest pains, dizziness, orthopnea or shortness of breath. Telemetry reveals short runs of nonsustained VT but no persistent events. No device intervention. IV amiodarone infusing Review of Systems Review of Systems: All systems reviewed & are unremarkable except as noted in Subjective Physical Exam Constitutional: well nourished and + thin; no acute distress and not ill appearing Eyes: PERRL, conjunctivae normal, anicteric sclerae ENMT: external ear and nose normal, oropharynx normal Neck: trachea midline, no thyromegaly Respiratory: no respiratory distress, no labored breathing and no retractions Auscultation: + diminished lung sounds (Bilateral, no rales, rhonchi, wheeze) Cardiovascular: Rate/Rhythm: regular rate and regular rhythm Heart Sounds: normal S1 and normal S2; no murmur Vessels: radial pulses present; no JVD and no carotid bruit Extremities: no edema Gastrointestinal (Abdomen): Inspection/Auscultation: abdomen normal to inspection and normal bowel sounds; abdomen not distended Percussion/Palpation: abdomen soft; abdomen nontender, no guarding and abdomen not rigid Neurologic: CN's II-XI intact bilaterally and moves all extremities; no focal motor deficits Motor/Sensory: no tremor Psychiatric: A+Ox3, euthymic affect Results & Data ([facility]) Vital Signs (Past 12 Hours) Vital Signs Temp Pulse Resp BP Pulse Ox O2 Del Method 08/14/22 11:00 75 21 95 Room Air 08/14/22 11:00 133/77 08/14/22 10:00 78 14 96 08/14/22 10:00 125/76 08/14/22 09:00 75 18 96 08/14/22 09:00 137/79 08/14/22 08:00 77 15 96 08/14/22 08:00 142/86 H 08/14/22 07:30 77 18 94 08/14/22 07:30 140/86 08/14/22 07:00 75 18 92 08/14/22 07:00 131/81 08/14/22 11:09 36.7 C 08/14/22 07:56 Room Air 08/14/22 06:00 114 H 15 97 08/14/22 06:00 149/90 H 08/14/22 05:30 77 17 92 08/14/22 05:30 150/85 H 08/14/22 05:00 75 22 94 08/14/22 05:00 133/79 08/14/22 04:30 75 18 91 08/14/22 04:30 129/80 08/14/22 04:00 75 16 91 08/14/22 04:00 133/77 08/14/22 03:30 76 19 93 08/14/22 03:30 143/84 H 08/14/22 03:00 75 16 91 08/14/22 03:00 131/76 08/14/22 02:30 75 15 94 08/14/22 02:30 143/87 H 08/14/22 02:00 75 14 95 08/14/22 02:00 143/82 H 08/14/22 01:30 75 17 93 08/14/22 01:30 127/79 08/14/22 01:00 75 15 93 08/14/22 01:00 129/82 08/14/22 00:30 77 16 92 08/14/22 00:30 122/77 08/14/22 00:00 75 18 92 08/14/22 00:00 132/80 08/14/22 00:00 73 Laboratory Results Laboratory Results - last 24 hr 08/13/22 08/13/22 08/13/22 16:36 16:36 16:36 WBC 8.48 RBC 4.27 L Hgb 12.1 L Hct 35.7 L MCV 83.6 MCH 28.3 MCHC 33.9 RDW Std Deviation 46.1 RDW Coeff of Sapna 15.3 H Plt Count 248 MPV 10.2 Immature Gran % (Auto) 0.5 Neut % (Auto) 69.9 Lymph % (Auto) 16.2 [place] % (Auto) 10.6 Eos % (Auto) 2.0 Baso % (Auto) 0.8 Neut # (Auto) 5.93 Lymph # (Auto) 1.37 [place] # (Auto) 0.90 H Eos # (Auto) 0.17 Baso # (Auto) 0.07 Immature Gran # (Auto) 0.04 Sodium 141 Potassium 3.5 Chloride 108 H Carbon Dioxide 30 Anion Gap 3 BUN 29 H Creatinine 2.44 H Est Cr Clr Drug Dosing 29.3 Est GFR ( Amer) 30.6 Est GFR (Non-Af Amer) 26.4 BUN/Creatinine Ratio 11.9 Glucose 171 H POC Glucose Calcium 13.1 H* Ionized Calcium Phosphorus Magnesium 2.0 Total Bilirubin 0.8 AST 21 ALT 17 Alkaline Phosphatase 96 Troponin I High Sens 132.1 H* Total Protein 6.8 Total Protein (PEP) Albumin 3.7 Albumin (PEP) Globulin 3.1 Albumin/Globulin Ratio 1.2 Qongu-3-Kvadeicqe Fvtau-8-Mjqzddlgm Zimg-7-Csjcxulh Xkir-5-Ebdcptig Gamma Globulins Monoclonal Peak 3 Ser Monoclonl Protein Ser Monoclonal Prot 2 PEP Interpretation Lipase 20 Angiotensin Convert Enz 25-OH Vitamin D Total TSH 2.699 PTH Intact PTH Related Protein Urine Color Urine Appearance Urine pH Ur Specific [place] Urine Protein Urine Glucose (UA) Urine Ketones Urine Blood Urine Nitrite Urine Bilirubin Urine Urobilinogen Ur Leukocyte Esterase Urine WBC (Auto) Urine RBC (Auto) U Hyaline Cast (Auto) U Epithel Cells (Auto) Urine Bacteria (Auto) Ur Renal Epithelial Cell Calcium Oxalate Crystal Ur Random Creatinine Ur Random Sodium Nasal Screen MRSA (PCR) SARS-CoV-2, RNA, NAAT 08/13/22 08/13/22 08/13/22 17:00 19:40 22:15 WBC RBC Hgb Hct MCV MCH MCHC RDW Std Deviation RDW Coeff of [place] Plt Count MPV Immature Gran % (Auto) Neut % (Auto) Lymph % (Auto) [place] % (Auto) Eos % (Auto) Baso % (Auto) Neut # (Auto) Lymph # (Auto) [place] # (Auto) Eos # (Auto) Baso # (Auto) Immature Gran # (Auto) Sodium Potassium Chloride Carbon Dioxide Anion Gap BUN Creatinine Est Cr Clr Drug Dosing Est GFR ( Amer) Est GFR (Non-Af Amer) BUN/Creatinine Ratio Glucose POC Glucose Calcium Ionized Calcium Phosphorus Magnesium Total Bilirubin AST ALT Alkaline Phosphatase Troponin I High Sens Total Protein Total Protein (PEP) Albumin Albumin (PEP) Globulin Albumin/Globulin Ratio Qwcxc-6-Mfxpycgsv Nygfi-9-Vnshcgiol Idhh-6-Uauqupnq Mpoz-1-Rwwvwlow Gamma Globulins Monoclonal Peak 3 Ser Monoclonl Protein Ser Monoclonal Prot 2 PEP Interpretation Lipase Angiotensin Convert Enz 25-OH Vitamin D Total TSH PTH Intact PTH Related Protein Urine Color Yellow Urine Appearance Clear Urine pH 5.0 Ur Specific [place] 1.012 Urine Protein Trace H Urine Glucose (UA) Negative Urine Ketones Negative Urine Blood Negative Urine Nitrite Negative Urine Bilirubin Negative Urine Urobilinogen Negative Ur Leukocyte Esterase Negative Urine WBC (Auto) 5-10 H Urine RBC (Auto) 0-4 U Hyaline Cast (Auto) 5-10 H U Epithel Cells (Auto) >30 H Urine Bacteria (Auto) Negative Ur Renal Epithelial Cell Not Reportable Calcium Oxalate Crystal Present A Ur Random Creatinine Ur Random Sodium Nasal Screen MRSA (PCR) Negative SARS-CoV-2, RNA, NAAT NEGATIVE 08/13/22 08/13/22 08/13/22 22:15 22:15 23:00 WBC RBC Hgb Hct MCV MCH MCHC RDW Std Deviation RDW Coeff of [place] Plt Count MPV Immature Gran % (Auto) Neut % (Auto) Lymph % (Auto) [place] % (Auto) Eos % (Auto) Baso % (Auto) Neut # (Auto) Lymph # (Auto) [place] # (Auto) Eos # (Auto) Baso # (Auto) Immature Gran # (Auto) Sodium 142 Potassium 2.9 L Chloride 109 H Carbon Dioxide 29 Anion Gap 4 BUN 27 H Creatinine 2.15 H Est Cr Clr Drug Dosing 34.0 Est GFR ( Amer) 35.6 Est GFR (Non-Af Amer) 30.7 BUN/Creatinine Ratio 12.6 Glucose 166 H POC Glucose Calcium 11.4 H Ionized Calcium Phosphorus Magnesium 1.9 Total Bilirubin AST ALT Alkaline Phosphatase Troponin I High Sens 206.6 H* D Total Protein Total Protein (PEP) Albumin Albumin (PEP) Globulin Albumin/Globulin Ratio Furey-8-Rjgzwfyuz Mktys-3-Nxkxzltxe Nsav-2-Tejbduog Orpz-9-Otbjdagw Gamma Globulins Monoclonal Peak 3 Ser Monoclonl Protein Ser Monoclonal Prot 2 PEP Interpretation Lipase Angiotensin Convert Enz 25-OH Vitamin D Total TSH PTH Intact PTH Related Protein Urine Color Urine Appearance Urine pH Ur Specific [place] Urine Protein Urine Glucose (UA) Urine Ketones Urine Blood Urine Nitrite Urine Bilirubin Urine Urobilinogen Ur Leukocyte Esterase Urine WBC (Auto) Urine RBC (Auto) U Hyaline Cast (Auto) U Epithel Cells (Auto) Urine Bacteria (Auto) Ur Renal Epithelial Cell Calcium Oxalate Crystal Ur Random Creatinine 79.4 Ur Random Sodium 54 Nasal Screen MRSA (PCR) SARS-CoV-2, RNA, NAAT 08/14/22 08/14/22 08/14/22 05:06 05:06 05:06 WBC RBC Hgb Hct MCV MCH MCHC RDW Std Deviation RDW Coeff of [place] Plt Count MPV Immature Gran % (Auto) Neut % (Auto) Lymph % (Auto) [place] % (Auto) Eos % (Auto) Baso % (Auto) Neut # (Auto) Lymph # (Auto) [place] # (Auto) Eos # (Auto) Baso # (Auto) Immature Gran # (Auto) Sodium Potassium Chloride Carbon Dioxide Anion Gap BUN Creatinine Est Cr Clr Drug Dosing Est GFR ( Amer) Est GFR (Non-Af Amer) BUN/Creatinine Ratio Glucose POC Glucose Calcium Ionized Calcium 1.58 H Phosphorus Magnesium Total Bilirubin AST ALT Alkaline Phosphatase Troponin I High Sens Total Protein Total Protein (PEP) Pending Albumin Albumin (PEP) Pending Globulin Albumin/Globulin Ratio Gvpfn-1-Hihkffryi Pending Mundd-5-Eqtjytclo Pending Pvac-5-Ufpczxkk Pending Vayz-5-Merkiqtz Pending Gamma Globulins Pending Monoclonal Peak 3 Pending Ser Monoclonl Protein Pending Ser Monoclonal Prot 2 Pending PEP Interpretation Pending Lipase Angiotensin Convert Enz Pending 25-OH Vitamin D Total 33.5 TSH PTH Intact PTH Related Protein Pending Urine Color Urine Appearance Urine pH Ur Specific [place] Urine Protein Urine Glucose (UA) Urine Ketones Urine Blood Urine Nitrite Urine Bilirubin Urine Urobilinogen Ur Leukocyte Esterase Urine WBC (Auto) Urine RBC (Auto) U Hyaline Cast (Auto) U Epithel Cells (Auto) Urine Bacteria (Auto) Ur Renal Epithelial Cell Calcium Oxalate Crystal Ur Random Creatinine Ur Random Sodium Nasal Screen MRSA (PCR) SARS-CoV-2, RNA, NAAT 08/14/22 08/14/22 08/14/22 05:06 05:06 05:16 WBC 6.35 RBC 3.80 L Hgb 10.9 L Hct 31.5 L MCV 82.9 MCH 28.7 MCHC 34.6 RDW Std Deviation 46.4 H RDW Coeff of Sapna 15.2 H Plt Count 240 MPV 10.3 Immature Gran % (Auto) Neut % (Auto) Lymph % (Auto) [place] % (Auto) Eos % (Auto) Baso % (Auto) Neut # (Auto) Lymph # (Auto) [place] # (Auto) Eos # (Auto) Baso # (Auto) Immature Gran # (Auto) Sodium 143 Potassium 3.4 L Chloride 112 H Carbon Dioxide 29 Anion Gap 2 L BUN 26 H Creatinine 2.08 H Est Cr Clr Drug Dosing 35.1 Est GFR ( Amer) 37.1 Est GFR (Non-Af Amer) 32.0 BUN/Creatinine Ratio 12.5 Glucose 83 POC Glucose Calcium 11.1 H Ionized Calcium Phosphorus Magnesium 1.8 Total Bilirubin 0.5 AST 17 ALT 13 Alkaline Phosphatase 82 Troponin I High Sens 172.7 H* Total Protein 5.8 L Total Protein (PEP) Albumin 3.0 L Albumin (PEP) Globulin 2.8 Albumin/Globulin Ratio 1.1 Pdavi-2-Vxyjaidae Adaol-8-Pvhwiycre Cjag-4-Bsvjtaqj Mdqp-2-Houjeffo Gamma Globulins Monoclonal Peak 3 Ser Monoclonl Protein Ser Monoclonal Prot 2 PEP Interpretation Lipase Angiotensin Convert Enz 25-OH Vitamin D Total TSH PTH Intact 5.3 L PTH Related Protein Urine Color Urine Appearance Urine pH Ur Specific [place] Urine Protein Urine Glucose (UA) Urine Ketones Urine Blood Urine Nitrite Urine Bilirubin Urine Urobilinogen Ur Leukocyte Esterase Urine WBC (Auto) Urine RBC (Auto) U Hyaline Cast (Auto) U Epithel Cells (Auto) Urine Bacteria (Auto) Ur Renal Epithelial Cell Calcium Oxalate Crystal Ur Random Creatinine Ur Random Sodium Nasal Screen MRSA (PCR) SARS-CoV-2, RNA, NAAT 08/14/22 08/14/22 08:24 11:23 WBC RBC Hgb Hct MCV MCH MCHC RDW Std Deviation RDW Coeff of Sapna Plt Count MPV Immature Gran % (Auto) Neut % (Auto) Lymph % (Auto) [place] % (Auto) Eos % (Auto) Baso % (Auto) Neut # (Auto) Lymph # (Auto) [place] # (Auto) Eos # (Auto) Baso # (Auto) Immature Gran # (Auto) Sodium Potassium Chloride Carbon Dioxide Anion Gap BUN Creatinine Est Cr Clr Drug Dosing Est GFR ( Amer) Est GFR (Non-Af Amer) BUN/Creatinine Ratio Glucose POC Glucose 126 H Calcium Ionized Calcium Phosphorus 2.2 L Magnesium Total Bilirubin AST ALT Alkaline Phosphatase Troponin I High Sens Total Protein Total Protein (PEP) Albumin Albumin (PEP) Globulin Albumin/Globulin Ratio Wbevr-0-Wmpvqadjd Epzac-4-Fboipcftt Jcnw-3-Cmvgqwvt Txgl-7-Fwbqqwxn Gamma Globulins Monoclonal Peak 3 Ser Monoclonl Protein Ser Monoclonal Prot 2 PEP Interpretation Lipase Angiotensin Convert Enz 25-OH Vitamin D Total TSH PTH Intact PTH Related Protein Urine Color Urine Appearance Urine pH Ur Specific [place] Urine Protein Urine Glucose (UA) Urine Ketones Urine Blood Urine Nitrite Urine Bilirubin Urine Urobilinogen Ur Leukocyte Esterase Urine WBC (Auto) Urine RBC (Auto) U Hyaline Cast (Auto) U Epithel Cells (Auto) Urine Bacteria (Auto) Ur Renal Epithelial Cell Calcium Oxalate Crystal Ur Random Creatinine Ur Random Sodium Nasal Screen MRSA (PCR) SARS-CoV-2, RNA, NAAT Medications Administered Current Medications Aspirin (Aspirin 81 Mg Ectab) 81 mg PO QAM [facility] Stop: 09/13/22 08:59 Last Admin: 08/14/22 07:45 Dose: 81 mg Atorvastatin Calcium (Atorvastatin 40 Mg Tab) [facility] [place] Stop: 09/13/22 08:59 Last Admin: 08/14/22 07:45 Dose: 80 mg Calcitonin [place] (Calcitonin [place] 400 Units/2 Ml) 288 units SQ NOW ONE Stop: 08/14/22 12:16 Heparin Sodium (Porcine) (Heparin Sod 5,000 Unit/0.5 Ml Vial) 5,000 units SQ Q8 [facility] Stop: 09/12/22 21:59 Last Admin: 08/14/22 05:24 Dose: 5,000 units Amiodarone HCl/Dextrose (Nexterone / D5w) 360 mg in 200 mls @ 16.667 mls/hr IV .Q12H [facility] Stop: 09/12/22 22:44 Last Admin: 08/14/22 11:43 Dose: 0.5 mg/min, 16.7 mls/hr Parenteral Electrolytes (Normosol-R) 1,000 mls @ 125 mls/hr IV .Q8H [facility] Stop: 08/14/22 20:14 Metoprolol Tartrate (Metoprolol Tartrate 25 Mg Tab) 25 mg PO Q6H [facility] Stop: 09/12/22 19:59 Last Admin: 08/14/22 07:45 Dose: 25 mg Miscellaneous (Icu Protocol For Hyperglycemia) 1 each N/A ACHS [facility] Stop: 08/15/22 20:59 Last Admin: 08/14/22 11:45 Dose: Not Given ECG Additional Comments: 14-AUG-2022 05:35:19 [facility]-PCU ROUTINE RETRIEVAL Atrial-paced rhythm with prolonged AV conduction with occasional Premature ventricular complexes Septal infarct , age undetermined Abnormal ECG When compared with ECG of 13-AUG-2022 16:50, (unconfirmed) Electronic atrial pacemaker has replaced Sinus rhythm Nonspecific T wave abnormality no longer evident in Lateral leads QT has lengthened QT corrected 465
--- NOTE | 2022-08-14 12:10 | Critical Care Progress Note ---
Date of Service August 14, 2022 Assessment & Plan (1) Ventricular tachycardia: (2) Hypercalcemia: (3) Elevated troponin I level: (4) CATARINO (acute kidney injury): (5) ICD (implantable cardioverter-defibrillator) discharge: (6) Chronic heart failure with reduced ejection fraction and diastolic dysfunction: (7) Ischemic cardiomyopathy: (8) COPD without exacerbation: (9) Hypertension: (10) Hx of supraventricular tachycardia: (11) CAD (coronary artery disease): Plan Impression: 67-year-old male with extensive past cardiac history presents to the ED ICU following 3 episodes of ventricular tachycardia with AICD shock and CATARINO. Neuro CAM ICU: Negative Cardiac Ventricular tachycardiapatient with 3 episodes of V. tach with shock from AICD. ICD placed last year following ischemic cardiomyopathy and V. tach -Continue with amiodarone drip -Continue with beta-oma -Keep potassium greater than 4, phosphorus greater than 3, magnesium greater than 2 HFpEFlast echo 10/23 with mildly reduced systolic function and EF of 45 to 50%. Patient has history of ischemic cardiomyopathy -Follow-up repeat echo CADpatient does have mildly elevated troponin which is likely due to V. tach/defibrillation and CATARINO. -No chest pain or ST elevation on EKG. Continue ASA, MTP HLDcontinue statin Respiratory COPD -[id number] smoking history, quit 2011 -No outpatient medications on med list for COPD. No issue at this time. -Continuous monitoring pulse ox GI - Heart healthy diet RENAL/LYTES AKIcreatinine 2.44 with prior baseline of 0.7 -Hold enalapril for now -Avoid nephrotoxic medication BPHpatient unable to tolerate Flomax. Continue to monitor strict I's and O's. Follow-up renal ultrasound ENDO --Hypercalcemia With suppressed PTH Vitamin D is within normal limit Came in with potassium of 13, dehydration can increase calcium as well but PTH being low it means patient has chronic hypercalcemia Continue with ICU hyperglycemic protocol HEME H&H stable, monitor routine CBC ID - No negation for infectious process at this time --Prophylaxis VTE: Heparin GI: None Lines: Peripheral Diet: Cardiac Plan: In/out: +978, urine output 500 Continue with amiodarone drip. Potassium, phosphorus as well as magnesium being replaced Follow-up repeat BMP later today SPEP UPEP has been ordered for patient's hypercalcemia. He denies taking klzb-uwo-hmoeczn calcium supplements. Biphosphonate's cannot be given given the patient's CATARINO. 1 dose of calcitonin 4 international units/kg will be given subcu. I will also give gentle hydration 125 mill an hour of normal so for 1 L only Patient is okay to be downgraded to a telemetry floor, was discussed with cardiology Please note the above document was generated using voice recognition software. It may contain grammatical, syntax or spelling errors.Any formal questions or concerns about the content, text or information contained within the body of this dictation should be directly addressed to the provider for clarification. Admission and Anticipated Discharge Date Admission Date: August 13, 2022 Review of Systems Review of Systems: All systems reviewed & are unremarkable except as noted in Subjective Physical Exam Physical Exam: Constitutional: No acute distress HEENT: EOMI, PERRLA Respiratory system: Decreased air entry bilaterally, no wheeze, no rhonchi, mild crackles bilateral lower lobes CVS: S1-S2 positive, positive 2 out of 6 systolic murmur appreciated best at aorta, positive AICD Abdomen: Soft, nontender, nondistended, positive bowel sounds x4 Extremities: +2 pulses bilaterally radialis/ dorsalis pedis, no cyanosis, +1 edema bilateral lower extremity Neuro: Awake alert oriented x3 Psych: Normal mood and affect G/U:, No [place] Skin: no rashes, warm and dry Lymphatic: no cervical or axillary lymphadenopathy Results & Data Results & Data ([facility]) Vital Signs (Past 12 Hours) Vital Signs Temp Pulse Resp BP Pulse Ox O2 Del Method 08/14/22 11:00 75 21 95 Room Air 08/14/22 11:00 133/77 08/14/22 10:00 78 14 96 08/14/22 10:00 125/76 08/14/22 09:00 75 18 96 08/14/22 09:00 137/79 08/14/22 08:00 77 15 96 08/14/22 08:00 142/86 H 08/14/22 07:30 77 18 94 08/14/22 07:30 140/86 08/14/22 07:00 75 18 92 08/14/22 07:00 131/81 08/14/22 11:09 36.7 C 08/14/22 07:56 Room Air 08/14/22 06:00 114 H 15 97 08/14/22 06:00 149/90 H 08/14/22 05:30 77 17 92 08/14/22 05:30 150/85 H 08/14/22 05:00 75 22 94 08/14/22 05:00 133/79 08/14/22 04:30 75 18 91 08/14/22 04:30 129/80 08/14/22 04:00 75 16 91 08/14/22 04:00 133/77 08/14/22 03:30 76 19 93 08/14/22 03:30 143/84 H 08/14/22 03:00 75 16 91 08/14/22 03:00 131/76 08/14/22 02:30 75 15 94 08/14/22 02:30 143/87 H 08/14/22 02:00 75 14 95 08/14/22 02:00 143/82 H 08/14/22 01:30 75 17 93 08/14/22 01:30 127/79 08/14/22 01:00 75 15 93 08/14/22 01:00 129/82 08/14/22 00:30 77 16 92 08/14/22 00:30 122/77 08/14/22 00:00 75 18 92 08/14/22 00:00 132/80 08/14/22 00:00 73 Laboratory Results 08/14/22 05:06 08/14/22 05:06 Coding Level of Care Code 86226 SUB INP/OBS CARE 3/50MIN Diagnoses Ventricular tachycardia I47.20 Hypercalcemia E83.52 Elevated troponin I level R77.8 CATARINO (acute kidney injury) N17.9 ICD (implantable cardioverter-defibrillator) discharge Z45.02 Chronic heart failure with reduced ejection fraction and diastolic dysfunction I50.42 Ischemic cardiomyopathy I25.5 COPD without exacerbation J44.9 Hypertension I10 Hx of supraventricular tachycardia Z86.79 CAD (coronary artery disease) I25.10 Coronary Disease-Associated Artery/Lesion type: [place] artery [place] vs. transplanted heart: [place] heart Associated angina: without angina (1) CAD (coronary artery disease) Coronary Disease-Associated Artery/Lesion type: [place] artery [place] vs. transplanted heart: [place] heart Associated angina: without angina Qualified Code(s): I25.10 - Atherosclerotic heart disease of [place] coronary artery without angina pectoris
[2022-08-14] MEDS ORDERED: CALCITONIN SALMON 400 UNITS/2 ML SQ ONE (12:15)
[2022-08-14] MEDS ORDERED: NORMOSOL-R 1,000 ML IV SCH (12:15)
[2022-08-14] MEDS: METOPROLOL SUCC 25MG EXT REL TAB PO SCH ×2 (14:04→21:31)
[2022-08-14 15:15] LABS: BUN Creatinine Ratio 11.8 (10-20); Calcium 11.2 mg/dl (8.5-10.1); Est GFR (African American) 38.2 ml/min; Est GFR (Non-African American) 32.9 ml/min; Potassium 3.7 mmol/L (3.5-5.1)
[2022-08-14] MEDS ORDERED: POTASSIUM PHOS 3 MMOL/1 ML INFUSION IV ONE (15:59)
--- NOTE | 2022-08-14 15:59 | Hospitalist Progress Note ---
Date of Service August 14, 2022 Assessment & Plan (1) Sustained ventricular tachycardia: (2) ICD (implantable cardioverter-defibrillator) discharge: (3) Ischemic cardiomyopathy: Plan: Patient is a 67 yr male with H/O CAD, [place] in 1998, ischemic cardiomyopathy, ch ronic systolic heart failure, HTN, dyslipidemia,, PVD s/p stent, history of wide-complex tachycardia, s/p ICD 10/2021, BPH, former smoker presented to ER with complaint of palpitations, dizziness. 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 Sustained ventricular tachycardia ICD discharge X 3 prior to admission ECHO pending Continue IV amiodarone Metoprolol started changed to metoprolol succinate Monitor and replace electrolytes as needed Appreciate cardiology input Hypokalemia Hypophosphatemia Replete electrolytes as needed Monitor (4) Elevated troponin I level: Plan: Mild troponin elevation Likely demand ischemia secondary to V. tach, defibrillation Echo pending Continue aspirin, atorvastatin (5) CATARINO (acute kidney injury): Plan: Cr: 2.4. Was 2.0 on 07/29/2022 and 1.3 on 05/12/2022 per outpatient chart review Bladder scan as needed Renal ultrasound:No hydronephrosis. Right-sided nephrolithiasis. Enlarged prostate. Hold enalapril Continue IVF Monitor renal function Avoid nephrotoxic agents when possible (6) Hypercalcemia: Plan: Ca: 13.1. Was 11.6 on 07/29/2022, 9.4 on 05/12/2022 per outpatient chart review Denies OTC supplements H/O Recent weight loss TSH: 2.6. 25 hydroxy vitamin D normal PTH 5.3 PTH related protein pending Angiotensin-converting enzyme pending SPEP pending Continue IV fluids Cannot give Lasix, bisphosphonates due to CATARINO Received calcitonin Will need further work-up for weight loss as outpatient (7) Hypertension: Plan: Hold enalapril carvedilol discontinued Continue metoprolol (8) HLD (hyperlipidemia): Plan: Continue atorvastatin (9) COPD without exacerbation: Plan: Not on home inhalers No signs of acute exacerbation DVT Prophylaxis Heparin SQ Code Status Full Code Admission and Anticipated Discharge Date Admission Date: August 13, 2022 Subjective Patient is seen and examined at bedside States feeling well today Offers no complaints Eager to get discharged Denies any chest pain, dyspnea, dizziness, nausea, vomiting, abdominal pain Telemetry suggestive of runs of nonsustained VT On IV amiodarone Review of Systems Review of Systems: All systems reviewed & are unremarkable except as noted in Subjective Physical Exam Physical Exam: Physical Exam: Vitals signs as noted above General Appearance:Thin, frail, no apparent distress Head: normocephalic, Atraumatic Eyes: normal inspection, EOMI Neck: supple, Trachea midline Respiratory/Chest: Normal breath sounds, CTA, +ICD, No accessory muscle use Cardiovascular: S1, S2, No murmur Abdomen/GI:Soft, Non tender, Bowel sounds present Extremities/Musculoskeletal:normal inspection, no edema Neurologic/Psych:AAOX3, grossly no focal neurological deficits Skin: normal color, warm Results & Data Results & Data ([facility]) Vital Signs (Past 12 Hours) Vital Signs Temp Pulse Resp BP Pulse Ox O2 Del Method 08/14/22 13:00 75 20 93 08/14/22 13:00 130/79 08/14/22 12:00 75 21 94 08/14/22 12:00 141/86 H 08/14/22 11:39 36.8 C 08/14/22 11:00 75 21 95 Room Air 08/14/22 11:00 133/77 08/14/22 10:00 78 14 96 08/14/22 10:00 125/76 08/14/22 09:00 75 18 96 08/14/22 09:00 137/79 08/14/22 08:00 77 15 96 08/14/22 08:00 142/86 H 08/14/22 07:30 77 18 94 08/14/22 07:30 140/86 08/14/22 07:00 75 18 92 08/14/22 07:00 131/81 08/14/22 11:09 36.7 C 08/14/22 07:56 Room Air 08/14/22 06:00 114 H 15 97 08/14/22 06:00 149/90 H 08/14/22 05:30 77 17 92 08/14/22 05:30 150/85 H 08/14/22 05:00 75 22 94 08/14/22 05:00 133/79 08/14/22 04:30 75 18 91 08/14/22 04:30 129/80 08/14/22 04:00 75 16 91 08/14/22 04:00 133/77 Laboratory Results Short CBC 08/13/22 08/14/22 Range/Units 16:36 05:06 WBC 8.48 6.35 (4.8-10.8) K/ul Hgb 12.1 L 10.9 L (14.0-18.0) g/dl Hct 35.7 L 31.5 L (42.0-52.0) % Plt Count 248 240 (130-400) K/uL BMP 08/13/22 08/13/22 08/14/22 16:36 23:00 05:06 Sodium 141 142 143 Potassium 3.5 2.9 L 3.4 L Chloride 108 H 109 H 112 H Carbon Dioxide 30 29 29 BUN 29 H 27 H 26 H Creatinine 2.44 H 2.15 H 2.08 H Glucose 171 H 166 H 83 Calcium 13.1 H* 11.4 H 11.1 H 08/14/22 13:57 Sodium 141 Potassium 3.7 Chloride 111 H Carbon Dioxide 28 BUN 24 H Creatinine 2.03 H Glucose 120 H Calcium 11.2 H Liver Function 08/13/22 08/14/22 Range/Units 16:36 05:06 Total Bilirubin 0.8 0.5 (0.2-1.0) mg/dl AST 21 17 (13-39) U/L ALT 17 13 (7-52) U/L Alkaline Phosphatase 96 82 (34-104) U/L Albumin 3.7 3.0 L (3.4-5.0) gm/dl Urine 08/13/22 Range/Units 22:15 Urine Color Yellow Urine Appearance Clear (Clear) Urine pH 5.0 (4.5-7.5) Ur Specific [place] 1.012 (1.000-1.030) Urine Protein Trace H (Negative) Urine Glucose (UA) Negative (Negative)
[2022-08-14] MEDS ORDERED: POTASSIUM PHOSPHATE 15 MMOL in SODIUM CHLORIDE 0.9% 250 ML IV ONE (16:15)
[2022-08-14] MEDS ORDERED: POTASSIUM CHLORIDE CRTAB 20 MEQ TABCR PO STA (17:13)
--- NOTE | 2022-08-14 22:23 | Electrocardiogram Report ---
Test Reason : Blood Pressure : / mmHG Vent. Rate : 089 BPM Atrial Rate : 089 BPM P-R Int : 200 ms QRS Dur : 156 ms QT Int : 460 ms P-R-T Axes : -25 037 -32 degrees QTc Int : 559 ms Poor data quality, interpretation may be adversely affected Atrial-paced rhythm Non-specific intra-ventricular conduction block Abnormal ECG When compared with ECG of 14-OCT-2021 15:50, Electronic atrial pacemaker has replaced Sinus rhythm QRS duration has increased Confirmed by Jovan Gamez ([id number]) on 08/14/2022 10:23:26 PM Referred By: REFERRED SELF Confirmed By:Jovan Gamez
--- NOTE | 2022-08-14 22:24 | Electrocardiogram Report ---
Test Reason : Blood Pressure : / mmHG Vent. Rate : 077 BPM Atrial Rate : 077 BPM P-R Int : 192 ms QRS Dur : 128 ms QT Int : 448 ms P-R-T Axes : 046 078 -31 degrees QTc Int : 506 ms Atrial-paced rhythm with occasional Premature ventricular complexes Non-specific intra-ventricular conduction block Cannot rule out Inferior infarct , age undetermined Abnormal ECG When compared with ECG of 13-AUG-2022 16:30, Premature ventricular complexes are now Present Confirmed by Jovan Gamez ([id number]) on 08/14/2022 10:24:15 PM Referred By: REFERRED SELF Confirmed By:Jovan Gamez
--- NOTE | 2022-08-14 22:24 | Electrocardiogram Report ---
Test Reason : Blood Pressure : / mmHG Vent. Rate : 064 BPM Atrial Rate : 064 BPM P-R Int : 158 ms QRS Dur : 128 ms QT Int : 390 ms P-R-T Axes : 070 085 -21 degrees QTc Int : 402 ms Normal sinus rhythm Non-specific intra-ventricular conduction block Nonspecific T wave abnormality Abnormal ECG When compared with ECG of 13-AUG-2022 16:49, Sinus rhythm has replaced atrial pacing Confirmed by Jovan Gamez ([id number]) on 08/14/2022 10:24:45 PM Referred By: REFERRED SELF Confirmed By:Jovan Gamez
--- NOTE | 2022-08-14 22:49 | Electrocardiogram Report ---
Test Reason : Blood Pressure : / mmHG Vent. Rate : 078 BPM Atrial Rate : 079 BPM P-R Int : 222 ms QRS Dur : 118 ms QT Int : 408 ms P-R-T Axes : -05 080 030 degrees QTc Int : 465 ms Poor data quality, interpretation may be adversely affected Atrial-paced rhythm with prolonged AV conduction with occasional Premature ventricular complexes Septal infarct , age undetermined Abnormal ECG When compared with ECG of 13-AUG-2022 16:50, Electronic atrial pacemaker has replaced Sinus rhythm Confirmed by Jovan Gamez ([id number]) on 08/14/2022 10:49:19 PM Referred By: REFERRED SELF Confirmed By:Jovan Gamez
[2022-08-15] MEDS: AMIODARONE / D5W 360 MG/200 ML BAG IV SCH (04:05)
[2022-08-15] MEDS: HEPARIN SOD 5,000 UNIT/0.5 ML VIAL SQ SCH ×2 (05:37→14:19)
[2022-08-15 05:43] LABS: Hemoglobin 10.9 g/dl (14.0-18.0); Mean Corpuscular Hemoglobin 27.9 pg (25.0-34.0); Mean Corpuscular Hgb Conc 34.1 g/dL (32.0-36.0); Mean Corpuscular Volume 81.8 fL (80.0-100.0); Mean Platelet Volume 9.9 fL (9.4-12.4); Platelet Count 261 K/uL (130-400); RDW Coefficient of Variation 15.3 % (11.5-14.5); RDW Standard Deviation 45.1 fL (36.4-46.3); Red Blood Count 3.91 M/uL (4.70-6.10); White Blood Count 6.37 K/ul (4.8-10.8)
[2022-08-15 05:58] LABS: BUN Creatinine Ratio 11.2 (10-20); Creatinine Clr Calc Pharmacy 42.9 ml/min; Est GFR (African American) 47.3 ml/min; Est GFR (Non-African American) 40.8 ml/min; Phosphorus 2.1 mg/dl (2.5-4.9); Potassium 3.7 mmol/L (3.5-5.1)
[2022-08-15] MEDS: ICU Protocol for HYPERglycemia SCH ×2 (07:35→12:04)
[2022-08-15] MEDS: ATORVASTATIN 40 MG TAB PO SCH (07:46)
[2022-08-15] MEDS: ASPIRIN 81 MG ECTAB PO SCH (07:46)
[2022-08-15] MEDS: METOPROLOL SUCC 25MG EXT REL TAB PO SCH (07:46)
[2022-08-15] MEDS ORDERED: POTASSIUM PHOS 3 MMOL/1 ML INFUSION IV ONE (08:51)
[2022-08-15] MEDS ORDERED: NSS + 20MEQ KCL 20 MEQ/1,000 ML BAG IV ONE (09:00)
[2022-08-15] MEDS ORDERED: POTASSIUM PHOSPHATE 21 MMOL in SODIUM CHLORIDE 0.9% 500 ML IV ONE (09:30)
--- NOTE | 2022-08-15 11:39 | Cardiology Progress Note ---
Date of Service August 15, 2022 Assessment & Plan (1) Sustained ventricular tachycardia: (2) ICD (implantable cardioverter-defibrillator) discharge: (3) Ischemic cardiomyopathy: Plan: Cardiac catheterization October 2021 with chronic right coronary occlusion (4) Chronic heart failure with reduced ejection fraction and diastolic dysfunction: (5) COPD without exacerbation: (6) Hypercalcemia: Plan 67-year-old patient presents to the cardiology clinic with sustained ventricular tachycardia status post ICD shock x3. Rhythm improved with 150 mg of IV amiodarone although occasional short salvos of ventricular tachycardia noted on telemetry. Recurrent arrhythmia precipitated by discontinuation of amiodarone and transition of beta-oma therapy as noted above. Patient being loaded with IV amiodarone. 08/15/2022 Ventricular arrhythmias improved No signs of heart failure Echocardiogram with ischemic cardiomyopathy as in past slight decline with acute hospitalization with similar to prior studies Patient request discharged home today We will discontinue IV amiodarone Begin amiodarone 400 mg twice per day Metoprolol succinate 50 mg twice per day Continue to hold enalapril with likely resumption post hospital discharge Arranging cardiology appointment and BMP in the next week Admission and Anticipated Discharge Date Admission Date: August 13, 2022 Subjective Patient seen and examined, chart, medications, telemetry reviewed. Patient doing well no further ventricular tachycardia over the past 24 hours. No cardiac complaints. Patient insisting on discharge today due to social issues at home Renal function improving No signs of congestive heart failure Patient ambulatory in room Echo similar to prior study Physical Exam Constitutional: well nourished and + thin; no acute distress and not ill appearing Eyes: PERRL, conjunctivae normal, anicteric sclerae ENMT: external ear and nose normal, oropharynx normal Neck: trachea midline, no thyromegaly Respiratory: no respiratory distress, no labored breathing and no retractions Auscultation: + diminished lung sounds (Bilateral, no rales, rhonchi, wheeze) Cardiovascular: Rate/Rhythm: regular rate and regular rhythm Heart Sounds: normal S1 and normal S2; no murmur Vessels: radial pulses present; no JVD and no carotid bruit Extremities: no edema Gastrointestinal (Abdomen): Inspection/Auscultation: abdomen normal to inspection and normal bowel sounds; abdomen not distended Percuss ion/Palpation: abdomen soft; abdomen nontender, no guarding and abdomen not rigid Neurologic: CN's II-XI intact bilaterally and moves all extremities; no focal motor deficits Motor/Sensory: no tremor Psychiatric: A+Ox3, euthymic affect Results & Data ([facility]) Vital Signs (Past 12 Hours) Vital Signs Temp Pulse Resp BP Pulse Ox O2 Del Method 08/15/22 07:45 75 14 94 08/15/22 07:42 152/88 H 96 Room Air 08/15/22 07:42 75 19 08/15/22 07:30 75 17 08/15/22 07:15 75 18 08/15/22 07:00 75 13 08/15/22 08:03 36.7 C 08/15/22 04:00 75 15 08/15/22 04:00 36.8 C 139/78 95 08/15/22 00:00 75 20 08/15/22 00:00 129/79 94 08/15/22 00:00 75
--- NOTE | 2022-08-15 13:38 | Hospitalist Progress Note ---
Date of Service August 15, 2022 Assessment & Plan (1) Sustained ventricular tachycardia: (2) ICD (implantable cardioverter-defibrillator) discharge: Plan: Patient is a 67 yr male with H/O CAD, [place] in 1998, ischemic cardiomyopathy, chronic systolic heart failure, HTN, dyslipidemia,, PVD s/p stent, history of wide-complex tachycardia, s/p ICD 10/2021, BPH, former smoker presented to ER with complaint of palpitations, dizziness. ICD fired x 3 HEALTH ANALYST. Sustained ventricular tachycardia ICD discharge X 3 prior to admission ECHO: Left ventricle is normal in size. Mild concentric LVH. Akinesis of the inferior/inferolateral walker, with mild hypokinesis of other wall segments. EF 40 to 45%. Grade 1 diastolic dysfunction. Mild to moderate mitral regurgitation. Mild tricuspid regurgitation. Normal inferior vena cava diameter and respiratory variation suggesting normal central venous pressure. Unchanged from prior echo Continue IV amiodarone>> transition to 400 mg twice a day Metoprolol started changed to metoprolol succinate 50 mg twice a day Monitor and replace electrolytes as needed Appreciate cardiology input Needs follow-up with cardiology next week repeat BMP Hypokalemia Hypophosphatemia Replete electrolytes as needed Monitor Elevated troponin I level: Mild troponin elevation Likely demand ischemia secondary to V. tach, defibrillation Echo pending Continue aspirin, atorvastatin CATARINO (acute kidney injury): Cr: 2.4. Was 2.0 on 07/29/2022 and 1.3 on 05/12/2022 per outpatient chart review Bladder scan as needed Renal ultrasound:No hydronephrosis. Right-sided nephrolithiasis. Enlarged prostate. Held enalapril Continue IVF Monitor renal function Avoid nephrotoxic agents when possible Cr improved Hypercalcemia: Ca: 13.1. Was 11.6 on 07/29/2022, 9.4 on 05/12/2022 per outpatient chart review Denies OTC supplements H/O Recent weight loss TSH: 2.6. 25 hydroxy vitamin D normal PTH 5.3 PTH related protein pending Angiotensin-converting enzyme pending SPEP pending Continue IV fluids Cannot give Lasix, bisphosphonates due to CATARINO Received calcitonin Calcium levels improved to 10.0 today Will need further work-up for weight loss and hypercalcemia as outpatient Hypertension: Hold enalapril-- on discharge as well carvedilol discontinued Continue metoprolol HLD (hyperlipidemia): Continue atorvastatin COPD without exacerbation: Not on home inhalers No signs of acute exacerbation DVT Prophylaxis Heparin SQ Code Status Full Code Disposition Home Admission and Anticipated Discharge Date Admission Date: August 13, 2022 Subjective Patient is seen and examined at bedside Offers no complaints today Eager to get discharged Discussed with cardiology today Renal function improving Denies any chest pain, dyspnea, dizziness, nausea, vomiting, abdominal pain Review of Systems Review of Systems: All systems reviewed & are unremarkable except as noted in Subjective Physical Exam Physical Exam: Physical Exam: Vitals signs as noted above General Appearance:Thin, frail, no apparent distress Head: normocephalic, Atraumatic Eyes: normal inspection, EOMI Neck: supple, Trachea midline Respiratory/Chest: Normal breath sounds, CTA, +ICD, No accessory muscle use Cardiovascular: S1, S2, No murmur Abdomen/GI:Soft, Non tender, Bowel sounds present Extremities/Musculoskeletal:normal inspection, no edema Neurologic/Psych:AAOX3, grossly no focal neurological deficits Skin: normal color, warm Results & Data Results & Data ([facility]) Vital Signs (Past 12 Hours) Vital Signs Temp Pulse Resp BP Pulse Ox O2 Del Method 08/15/22 07:45 75 14 94 08/15/22 07:42 152/88 H 96 Room Air 08/15/22 07:42 75 19 08/15/22 07:30 75 17 08/15/22 07:15 75 18 08/15/22 07:00 75 13 08/15/22 08:03 36.7 C 08/15/22 04:00 75 15 08/15/22 04:00 36.8 C 139/78 95
--- NOTE | 2022-08-15 13:48 | Discharge Summary ---
Date of Service August 15, 2022 Admission HPI Per Admitting Provider Patient is 67-year-old male with PMH CAD, [place] in 1998, ischemic cardiomyopathy, chronic systolic heart failure, HTN, dyslipidemia,, PVD s/p stent, history of wide-complex tachycardia, s/p ICD 10/2021, BPH, former smoker presented to ER with complaint of palpitations, dizziness. History obtained from patient, outpatient and inpatient chart review. Patient reports has had issues for months with things not tasting well. Initially thought secondary to amiodarone, and amiodarone was discontinued in 05/2022. Last week patient reports felt heart racing when he went up a flight of stairs so he sent a interrogation. It was noted patient had several episodes of NSVT over the past several days. Patient was seen in EP office today by Dr Domínguez. He reports had some changes to ICD in office. Upon leaving clinic he reports had some mid chest pressure. He was driving home when had onset of palpitations, SOB. He reports ICD firing 3 times. He returned to office and was given IV amiodarone 150mg and transferred to ER via EMS. Further outpatient chart review Carvedilol had been changed to metoprolol secondary to fatigue over 6 months ago. Patient reports was having dizziness when he was started on Flomax. So he discontinued. He was prescribed finasteride and patient felt that was also causing dizziness so he discontinued. Patient reports 50 pound weight loss over the past 6 months. Denies fever/chills, diaphoresis, N/V/D/C, KULKARNI, syncope, vision changes, neck pain, orthopnea, cough, sore throat, choking, otalgia, rhinorrhea, abdominal pain, paresthesias, extremity edema, rashes, dysuria, hematuria, urinary retention. In ER he was seen by cardiology and started on amiodarone drip. Admission Exam Per Admitting Provider General: no acute distress, Thin elderly male Head: normocephalic, atraumatic Eyes: conjunctiva non-injected, anicteric ENT: normal inspection external ears, nose, mucous membranes mildly dry Neck: supple, trachea midline Lungs: clear, no respiratory distress, diminished breath sounds with no wheezing/rhonchi/rales CV: RRR, no murmur, no pretibial edema Abd: normal BS, soft, non-tender Ext: no cyanosis, no calf tenderness Neuro: A&O x 3, no focal deficits noted, normal affect Skin: warm, dry Principal Diagnosis Sustained ventricular tachycardia ICD discharge Acute kidney injury Hypokalemia Hypophosphatemia Hypercalcemia Weight Loss Discharge Data Allergies Allergy/AdvReac Type Severity Reaction Status Date / Time No Known Allergies Allergy Unverified 08/13/22 18:10 Consultations 08/13/22 16:24 Consult Cardiology Stat 08/13/22 17:26 ED Decision to Admit Stat 08/13/22 19:55 Consult Machine Heel Builder Routine Procedures Performed Laboratory Results WBC 6.37 K/ul (4.8-10.8) 08/15/22 05:18 RBC 3.91 M/uL (4.70-6.10) L 08/15/22 05:18 Hgb 10.9 g/dl (14.0-18.0) L 08/15/22 05:18 Hct 32.0 % (42.0-52.0) L 08/15/22 05:18 MCV 81.8 fL (80.0-100.0) 08/15/22 05:18 MCH 27.9 pg (25.0-34.0) 08/15/22 05:18 MCHC 34.1 g/dL (32.0-36.0) 08/15/22 05:18 RDW Std Deviation 45.1 fL (36.4-46.3) 08/15/22 05:18 RDW Coeff of Sapna 15.3 % (11.5-14.5) H 08/15/22 05:18 Plt Count 261 K/uL (130-400) 08/15/22 05:18 MPV 9.9 fL (9.4-12.4) 08/15/22 05:18 Immature Gran % (Auto) 0.5 % 08/13/22 16:36 Neut % (Auto) 69.9 % 08/13/22 16:36 Lymph % (Auto) 16.2 % 08/13/22 16:36 Sebastian % (Auto) 10.6 % 08/13/22 16:36 Eos % (Auto) 2.0 % 08/13/22 16:36 Baso % (Auto) 0.8 % 08/13/22 16:36 Neut # (Auto) 5.93 K/uL (1.40-6.50) 08/13/22 16:36 Lymph # (Auto) 1.37 K/uL (1.2-3.4) 08/13/22 16:36 Sebastian # (Auto) 0.90 K/uL (0.11-0.59) H 08/13/22 16:36 Eos # (Auto) 0.17 K/uL (0-0.50) 08/13/22 16:36 Baso # (Auto) 0.07 K/uL (0-0.2) 08/13/22 16:36 Immature Gran # (Auto) 0.04 K/uL (0.01-0.20) 08/13/22 16:36 Sodium 141 mmol/L (136-145) 08/15/22 05:18 Potassium 3.7 mmol/L (3.5-5.1) 08/15/22 05:18 Chloride 111 mmol/L (98-107) H 08/15/22 05:18 Carbon Dioxide 27 mmol/L (21-32) 08/15/22 05:18 Anion Gap 3 (3-11) 08/15/22 05:18 BUN 19 mg/dl (6-23) 08/15/22 05:18 Creatinine 1.70 mg/dl (0.6-1.4) H D 08/15/22 05:18 Est Cr Clr Drug Dosing 42.9 ml/min 08/15/22 05:18 Est GFR ( Amer) 47.3 ml/min 08/15/22 05:18 Est GFR (Non-Af Amer) 40.8 ml/min 08/15/22 05:18 BUN/Creatinine Ratio 11.2 (10-20) 08/15/22 05:18 Glucose 96 mg/dl (70-99(Fasting)) 08/15/22 05:18 POC Glucose 120 mg/dl (70-99) H 08/14/22 16:22 Calcium 10.0 mg/dl (8.5-10.1) 08/15/22 05:18 Ionized Calcium 1.58 mmol/L (1.12-1.32) H 08/14/22 05:06 Phosphorus 2.1 mg/dl (2.5-4.9) L 08/15/22 05:18 Magnesium 2.0 mg/dl (1.7-2.4) 08/15/22 05:18 Total Bilirubin 0.5 mg/dl (0.2-1.0) 08/14/22 05:06 AST 17 U/L (13-39) 08/14/22 05:06 ALT 13 U/L (7-52) 08/14/22 05:06 Alkaline Phosphatase 82 U/L (34-104) 08/14/22 05:06 Troponin I High Sens 172.7 pg/ml (0-20) H* 08/14/22 05:06 Total Protein 5.8 gm/dl (6.0-8.3) L 08/14/22 05:06 Albumin 3.0 gm/dl (3.4-5.0) L 08/14/22 05:06 Globulin 2.8 gm/dl (2.5-4.0) 08/14/22 05:06 Albumin/Globulin Ratio 1.1 (0.9-2) 08/14/22 05:06 Lipase 20 U/L (11-82) 08/13/22 16:36 25-OH Vitamin D Total 33.5 ng/ml (30-100) 08/14/22 05:06 TSH 2.699 uIu/ml (0.300-4.500) 08/13/22 16:36 PTH Intact 5.3 pg/ml (12.0-88.0) L 08/14/22 05:16 Urine Color Yellow 08/13/22 22:15 Urine Appearance Clear (Clear) 08/13/22 22:15 Urine pH 5.0 (4.5-7.5) 08/13/22 22:15 Ur Specific [place] 1.012 (1.000-1.030) 08/13/22 22:15 Urine Protein Trace (Negative) H 08/13/22 22:15 Urine Glucose (UA) Negative (Negative) 08/13/22 22:15 Urine Ketones Negative (Negative) 08/13/22 22:15 Urine Blood Negative (Negative) 08/13/22 22:15 Urine Nitrite Negative (Negative) 08/13/22 22:15 Urine Bilirubin Negative (Negative) 08/13/22 22:15 Urine Urobilinogen Negative (Negative) 08/13/22 22:15 Ur Leukocyte Esterase Negative (Negative) 08/13/22 22:15 Urine WBC (Auto) 5-10 /hpf (0-5) H 08/13/22 22:15 Urine RBC (Auto) 0-4 /hpf (0-4) 08/13/22 22:15 U Hyaline Cast (Auto) 5-10 /lpf (0-5) H 08/13/22 22:15 U Epithel Cells (Auto) >30 /lpf (0-5) H 08/13/22 22:15 Urine Bacteria (Auto) Negative (Negative) 08/13/22 22:15 Ur Renal Epithelial Cell Not Reportable 08/13/22 22:15 Calcium Oxalate Crystal Present (None Prsent) A 08/13/22 22:15 Ur Random Creatinine 79.4 mg/dl 08/13/22 22:15 Ur Random Sodium 54 mmol/L 08/13/22 22:15 Nasal Screen MRSA (PCR) Negative (Negative) 08/13/22 19:40 SARS-CoV-2, RNA, NAAT NEGATIVE (NEGATIVE) 08/13/22 17:00 Impressions Chest X-Ray 08/13/22 16:25 XR chest 1V portable HISTORY: Chest pain, nonspecific COMPARISON: Chest 10/15/2021. FINDINGS: No pneumothorax. The heart is stable in size. The lungs are clear. No evidence for pulmonary edema. The left-sided pacemaker/defibrillator again noted. IMPRESSION: No acute process. ACT 112: Negative or not required by law. Electronically signed by: Wyatt Plunkett M.D. 08/13/2022 5:32 PM Renal Ultrasound 08/13/22 19:55 RENAL ULTRASOUND CLINICAL HISTORY: Acute kidney injury, r/o obstruction COMPARISON STUDY: None. TECHNIQUE: Sonography of the kidneys and the urinary bladder was performed. FINDINGS: The right kidney measures 11.4 x 5.6 x 5.9 cm and the left kidney measures 11.3 x 5.7 x 5.8 cm. There is no hydronephrosis. Renal echogenicity, size and cortical thickness are within normal limits. Several renal cysts are noted. Multiple right renal calculi measure up to 8 mm. Ureteral jets were not visualized. The prostate is enlarged, measuring approximately 5.5 cm in transverse dimension. IMPRESSION: 1. No hydronephrosis. 2. Right-sided nephrolithiasis. 3. Enlarged prostate. ACT 112: Negative or not required by law. Electronically signed by: Jamie Aldana M.D. 08/13/2022 9:02 PM Ordered Studies 08/13/22 19:55 US Renal Bladder [US renal/blad retro comp] Urgent Hospital Course (1) Sustained ventricular tachycardia: (2) ICD (implantable cardioverter-defibrillator) discharge: Patient is a 67 yr male with H/O CAD, [place] in 1998, ischemic cardiomyopathy, chronic systolic heart failure, HTN, dyslipidemia,, PVD s/p stent, history of wide-complex tachycardia, s/p ICD 10/2021, BPH, former smoker presented to ER with complaint of palpitations, dizziness. 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 Sustained ventricular tachycardia ICD discharge X 3 prior to admission ECHO: Left ventricle is normal in size. Mild concentric LVH. Akinesis of the inferior/inferolateral walker, with mild hypokinesis of other wall segments. EF 40 to 45%. Grade 1 diastolic dysfunction. Mild to moderate mitral regurgitation. Mild tricuspid regurgitation. Normal inferior vena cava diameter and respiratory variation suggesting normal central venous pressure. Unchanged from prior echo Continue IV amiodarone>> transition to 400 mg twice a day Metoprolol started changed to metoprolol succinate 50 mg twice a day Monitor and replace electrolytes as needed Appreciate cardiology input Needs follow-up with cardiology next week repeat BMP Hypokalemia Hypophosphatemia Replete electrolytes as needed Monitor Elevated troponin I level: Mild troponin elevation Likely demand ischemia secondary to V. tach, defibrillation Echo pending Continue aspirin, atorvastatin CATARINO (acute kidney injury): Cr: 2.4. Was 2.0 on 07/29/2022 and 1.3 on 05/12/2022 per outpatient chart review Bladder scan as needed Renal ultrasound:No hydronephrosis. Right-sided nephrolithiasis. Enlarged prostate. Held enalapril Continue IVF Monitor renal function Avoid nephrotoxic agents when possible Cr improved Hypercalcemia: Ca: 13.1. Was 11.6 on 07/29/2022, 9.4 on 05/12/2022 per outpatient chart review Denies OTC supplements H/O Recent weight loss TSH: 2.6. 25 hydroxy vitamin D normal PTH 5.3 PTH related protein pending Angiotensin-converting enzyme pending SPEP pending Continue IV fluids Cannot give Lasix, bisphosphonates due to CATARINO Received calcitonin Calcium levels improved to 10.0 today Will need further work-up for weight loss and hypercalcemia as outpatient Hypertension: Hold enalapril-- on discharge as well carvedilol discontinued Continue metoprolol HLD (hyperlipidemia): Continue atorvastatin COPD without exacerbation: Not on home inhalers No signs of acute exacerbation DVT Prophylaxis Heparin SQ Code Status Full Code Disposition Home Total Time Total Time Spent Total Time Spent (In Minutes): 50 minutes Discharge Plan Discharge Items Patient Disposition: Home - Self-Care Reason For Visit: VTACH Discharge Diagnosis: Sustained ventricular tachycardia ICD discharge Acute kidney injury Hypokalemia Hypophosphatemia Hypercalcemia Weight Loss Activity: Per Instructions section Exercise/Sports: Wait until after follow-up appointment Non-emergency contact: Primary Care Provider and Customer Service Security Officer Call non-emergency contact if: you have any medication questions, your symptoms worsen, your pain is concerning for you and you have a fever Follow-up/Referrals: Elie Jaramillo DO [Primary Care Provider] - Diet: Heart Healthy Addtl Attending Provider Instructions: Follow-up with your primary care physician Dr. Jaramillo in 1 week Follow-up with your ore trimmer Dr. Aldrich next week as advised -- Obtain blood test (basic metabolic panel) in 1 week and follow-up with your ore trimmer/primary care physician --Your blood test for increased calcium levels is pending at the time of discharge. Follow-up with your physician for results. -- Discuss with your physician for further management of high calcium levels and work-up for weight loss as advised. --- Stop taking enalapril until further recommendations from your primary care physician/ore trimmer. Seek immediate medical attention if your symptoms reoccur or worsen Please take all medications as instructed on discharge list below. Please call if you have any questions or problems. You can reach a [facility] hospitalist on duty at [facility] 24 hours a day by calling [phone] Pending Studies at Discharge: Yes Studies:: Hypercalcemia work-up Stand-Alone Forms: My [facility] Ecal, Smoking Cessation Medications and DC Order Prescriptions: New Phospha 250 Neutral 250 mg Tablet 1 tab PO QID 7 Days Qty: 28 0RF Continued atorvastatin 80 mg Tablet 80 mg PO QAM Qty: 0 aspirin [Aniceto Low Dose Aspirin] 81 mg Tablet,Delayed Release (Dr/Ec) 81 mg PO QAM Qty: 0 nitroglycerin 0.4 mg Tablet, Sublingual 0.4 mg sublingual DIRECTED PRN (Reason: Chest Pain) Rx Instructions: 1 sublingually q 5 minutes prn chest pain up to 3 doses in 15 minutes Centrum Silver Men 300-600-300 mcg Tablet 1 tab PO QAM metoprolol succinate 50 mg tablet extended release 24 hr 50 mg PO BID Qty: 60 1RF Rx Instructions: to begin 08/14/22 Changed amiodarone 200 mg tablet 400 mg PO DAILY Qty: 120 1RF Rx Instructions: to begin 08/14/22 for 15 days then daily per pt Discontinued carvedilol 12.5 mg tablet 12.5 mg PO BID enalapril maleate 2.5 mg tablet 2.5 mg PO HS Discharge Orders: Discharge Order (Routine); Ordered 08/15/22 Ordered By: Jacky Ann Admission Data Admit Date/Time: 08/13/22 18:06 Attending Provider: Jacky Ann Admit Provider: Cristy Olivas Primary Care Provider: Elie Jaramillo Other Providers: Jemal Cramer ; Cristy Olivas ; Verenice Keita
[2022-08-15] MEDS ORDERED: AMIODARONE 200 MG TAB PO SCH (17:00)
[2022-08-15] MEDS ORDERED: METOPROLOL SUCC 50MG EXT REL TAB PO SCH (21:00)
--- NOTE | 2022-08-16 06:11 | Electrocardiogram Report ---
Test Reason : Blood Pressure : / mmHG Vent. Rate : 075 BPM Atrial Rate : 075 BPM P-R Int : 180 ms QRS Dur : 100 ms QT Int : 412 ms P-R-T Axes : 062 083 027 degrees QTc Int : 460 ms Atrial-paced rhythm Nonspecific T wave abnormality Abnormal ECG When compared with ECG of 14-AUG-2022 05:35, Premature ventricular complexes are no longer Present Confirmed by Jovan Gamez ([id number]) on 08/16/2022 6:11:09 AM Referred By: REFERRED SELF Confirmed By:Jovan Gamez
[2022-08-16] MEDS ORDERED: POT PHOSPHATE MONOBASIC W/ SOD TAB PO SCH (09:00)
[2022-08-17 09:54] LABS: Albumin 2.8 g/dL (3.8-4.8); Alpha 1 Globulin 0.4 g/dL (0.2-0.3); Alpha 2 Globulin 0.7 g/dL (0.5-0.9); Angiotensin Converting Enzyme 70 U/L (9-67); Beta-1-Globulin 0.3 g/dL (0.4-0.6); Beta-2-Globulin 0.3 g/dL (0.2-0.5); Gamma Globulin 0.8 g/dL (0.8-1.7); Monoclonal Protein Band 1 DNR g/dL (NONE DETECTED); Monoclonal Protein Band 2 DNR g/dL (NONE DETECTED); Monoclonal Protein Band 3 DNR g/dL (NONE DETECTED); Total Protein 5.3 g/dL (6.1-8.1)
== END 2022-08-15 15:55 | disposition home or self-care (01) | DRG 309 ==
LOC: ED 16:22 → 1E 18:06 → SUATTDRO 18:06 → 1E 19:04